=== PATIENT | male | born 1950 | race Caucasian/White ===

== ENCOUNTER 2023-08-25 10:47 | Outpatient (OUT) | payer SELFPAY | END 2023-08-25 10:48 | disposition home or self-care (01) | PROVIDERS: Visit Provider Ophthalmology | DX: Z01.818 Encounter for other preprocedural examination (principal); H25.811 Combined forms of age-related cataract, right eye ==

== ENCOUNTER 2023-08-26 06:34 | Day surgery (SDC) | payer OTHER, SELFPAY ==
--- NOTE | 2023-08-25 | HP_ITS ---
Date: 08/25/2022 HISTORY: The patient is a 73-year-old white male with complaints of declining vision out of his right eye. He states that over the last four months, in a rapid, constant fashion, he has noticed a steady decline in his vision. Distant vision has been most affected with TV watching and driving challenged. Road signs at a distance are difficult to see. He also states having difficulty at night time while driving due to oncoming headlights creating glare and halos. PAST OCULAR HISTORY: Denies. PAST MEDICAL HISTORY: 1. Hypercholesterolemia. 2. Hypertension. SOCIAL HISTORY: Denies tobacco or recreational drug abuse. Drinks alcohol occasionally. SYSTEMIC MEDICATIONS: Include doxycycline, losartan, rosuvastatin, amlodipine, colecalciferol. ALLERGIES TO MEDICATIONS: Denies. REVIEW OF SYSTEMS: No pertinent positives. PHYSICAL EXAM: GENERAL: In general, he is awake, alert and oriented x3, well developed, well nourished, in no acute distress. HEART: Regular rate and rhythm. LUNGS: Clear bilaterally. ABDOMEN: Soft, non-tender, non-distended. EXTREMITIES: No pitting edema. OPHTHALMIC EXAM: Revealed a visual acuity of 20/300 in the right eye and 20/70 -1 in the left eye, with the right eye glaring 20/400 and the left eye glaring to 20/200. Pupils motility, muscle balance, confrontational visual olivarez within normal limits bilaterally. Slit lamp exam revealed blepharitis with a severe decrease in tear film bilaterally. Conjunctiva, cornea, anterior chamber and iris were within normal limits bilaterally. Lens status demonstrated 3+ nuclear sclerosis with 1+ PSC cataract bilaterally. FUNDUS EXAM: Revealed a good view with good dilation bilaterally. Optic discs, macula, vessels, periphery and vitreous were within normal limits bilaterally. ASSESSMENT AND PLAN: Visually significant cataract, right eye. After risks, benefits, alternatives, as well as expectations were delivered to the patient, he elected to go forward with cataract removal. He understands the risks include but not limited to infection, bleeding, loss of vision, loss of the eye itself. Secondly, he understands postoperatively he is likely to require spectacle correction for his best visual acuity. Finally, a complete ophthalmic exam was performed, there is not determined to be any other source of visual decline other than that of the cataract. After understanding all risks as well as expectations, he elected to go forward with the procedure listed above and will be doing so in the near future. MTDD
--- NOTE | 2023-08-25 10:41 | PC.NURSE ---
Call placed to patient and there was no answer. A detail message was left for patient to have no caffeine in the morning, may have a light breakfast, may take morning meds, must have a oil transport driver for after the procedure, must bring folder and eye drops, bring current med list, and to call the provided number after 4 pm today for arrival time.
--- NOTE | 2023-08-26 | OP_ITS ---
OPERATION DATE: 08/26/2023 SURGEON: Brooks Tinoco M.D. PREOPERATIVE DIAGNOSIS: Nuclear sclerotic cataract right eye. POSTOPERATIVE DIAGNOSIS: Nuclear sclerotic cataract right eye. PROCEDURE: Cataract extraction with intraocular lens placement for the right eye. ANESTHESIA: Topical. ESTIMATED BLOOD LOSS: Zero. COMPLICATIONS: None. 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 This was just noted and not seen before. The patient was brought to the Operating Room in supine position. After proper identification, the right eye was prepped and draped in a sterile ophthalmic fashion. A paracentesis created at the 11 o'clock position. Approximately 1 mL of unpreserved Xylocaine was injected into the anterior chamber followed by Amvisc Plus. Using a 2.6 mm Keratome blade, a clear corneal incision was created at the 9 o'clock limbus. A cystotome was then used to begin a curvilinear capsulorrhexis that was continued for 360 degrees with the Utrata forceps. BSS on a 26 gauge cannula was injected beneath the anterior capsule to hydrodissect as well as hydrodelineate the lens. After ensuring mobility, phacoemulsification was performed in a [id number]-type fashion. After all nuclear material had been removed from the eye, IA was introduced and all residual cortical material was cleaned up. Additional Amvisc Plus was injected into the posterior bag and a lens model MX60, 16.5 diopters was injected and dialed into position. After ensuring centration, IA was reintroduced into the anterior chamber and all residual Amvisc Plus was removed from the eye. BSS on a 30 gauge cannula was injected into the stroma of the clear corneal incision as well as the paracentesis to hydrate the wounds. Additional BSS was injected into the anterior chamber to pressurize the eye at approximately 20 to 22 mmHg by finger tension. 0.1 mL of antibiotic was injected into the anterior chamber and Weck-Karina sponges were used to check the wounds to be watertight. One drop of apraclonidine and one drop of prednisolone acetate were placed into the eye and a shield was placed over top. The patient was sent to the postoperative area in satisfactory condition to follow up the following day for postoperative care. AMANDA
--- OUTSIDE RECORDS SUMMARY | 2023-08-26 06:37 | XMS_ITS | CCD ---
Author Name Unknown Address [address] [place] [address] Organization [facility] Care Team Providers Care Director Nicu Name Role Phone Anna Marie Liu Primary Care Physician Elpidio Mullins Unavailable Jr Ron Primary Care Physician Jr Akbar Attending Unavailable NEAL Liu Referring Jr Cuello Referring Unavailable Jr Akbra Admitting Unavailable Jr Akbar Attending Unavailable Jr CAMPOS Attending Unavailable Jr CAMPOS Referring Unavailable Jr CAMPOS Admitting Unavailable Jr CAMPOS Attending Unavailable Jr CAMPOS Referring Unavailable Jr CAMPOS Admitting Unavailable Андрей Sheehan Consulting Андрей Gastelum Consulting Андрей Gastelum Consulting Unavaila Jr Russell Admitting Unavailable Jr CAMPOS Attending Unavailable Jr CAMPOS Attending Unavailable Jr CAMPOS Admitting Unavailable Jr CAMPOS Attending Unavailable Jr CAMPOS Attending Unavailable Jr CAMPOS Attending Unavailable Jr CAMPOS Attending Unavailable NEAL Liu Attending UnavailJr Couch Attending Unavailable NEAL Liu Attending UnavailSIMRAN Taylor Attending Unavailable CANDELARIA EMERY Referring Unavailable Medications Current Medications Medication Drug Class(es) Dates Sig (Normalized) Sig (Original) albuterol HFA 90 mcg/inh MDI (2 sources) Start: 07-14-2021 take 180 ug by inhalation four times daily albuterol HFA 90 mcg/inh MDI 180 mcg, 2 puff(s), Inhalation, QID, Refill(s) 0, May go home with current prescription. Start Date: 07/14/21 Status: Ordered amLODIPine 5 mg oral tablet (10 sources) Dihydropyridine Calcium Channel Adam Start: 01-13-2023 take 1 tablet by mouth once daily amLODIPine 5 mg Tab 5 mg = 1 tab(s), Oral, Daily, # 90 tab(s), Refills(s) 3, Pharmacy: [facility]/pharmacy #[id number], 180, cm, 01/13/23 8:45:00 EDT, Height/Length Dosing, 97.1, kg, 01/13/23 8:45:00 EDT, Weight Dosing Start Date: 01/13/23 Status: Ordered Start: 06-27-2021 [facility] daily amLODIPine 10 mg Tab 10 mg = 1 tab(s), Oral, Daily, Refills(s) 0 Start Date: 06/27/21 Status: Ordered apixaban 5 mg oral tablet (5 sources) Factor Xa Inhibitor Start: 08-11-2021 take 1 tablet by mouth twice daily Eliquis 5 mg oral tablet 5 mg = 1 tab(s), Oral, BID, # 60 tab(s), Refills(s) 0 Start Date: 08/11/21 Status: Ordered doxycycline hyclate 100 mg oral capsule (9 sources) Tetracycline-clas s Drug Start: 12-21-2022 take 1 capsule by mouth once daily doxycycline hyclate 100 mg Cap 100 mg = 1 cap(s), Oral, Daily, with fluids, # 30 cap(s), Refills(s) 5, Pharmacy: [facility]/pharmacy #[id number], 180, cm, 08/10/22 10:10:00 EST, Height/Length Dosing, 99, kg, 08/10/22 10:10:00 EST, Weight Dosing Start Date: 12/21/22 Status: Ordered Start: 04-15-2022 take 1 capsule by mo [facility] once daily doxycycline hyclate 100 mg Cap 100 mg = 1 cap(s), Oral, Daily, with fluids, # 30 cap(s), Refills(s) 5, Pharmacy: [facility]/pharmacy #[id number], 180, cm, 01/01/22 9:11:00 EDT, Height/Length Dosing, 97.4, kg, 01/01/22 9:11:00 EDT, Weight Dosing Start Date: 04/15/22 Status: Ordered Start: 01-01-2022 End: 03-02-2022 take 1 capsule by mouth once daily doxycycline hyclate 100 mg Cap 100 mg = 1 cap(s), Oral, Daily, with fluids, X 30 day(s), # 30 cap(s), Refills(s) 1, [id number], cm, 01/01/22 9:11:00 EDT, Height/Length Dosing, 97.4, kg, 01/01/22 9:11:00 EDT, Weight Dosing Start Date: 01/01/22 Stop Date: 03/02/22 Status: Ordered fexofenadine hydrochloride 180 mg oral tablet (2 sources) Histamine-1 Receptor Antagonist Start: 04-20-2023 take 1 tablet by mouth once daily as needed fexofenadine 180 mg Tab 180 mg = 1 tab(s), Oral, Daily, PRN Allergy symptoms, # 30 tab(s), Refills(s) 5, [id number], cm, 04/20/23 8:55:00 EDT, Height/Length Dosing, 97.7, kg, 04/20/23 8:55:00 EDT, Weight Dosing Start Date: 04/20/23 Status: Ordered glucosamine sulfate 500 mg oral capsule (11 sources) Start: 06-07-2015 take 2 capsules by mouth once daily glucosamine 500 mg Cap 1,000 mg, Oral, Daily, # 30 cap(s), Refills(s) 0, Prophylaxis Start Date: 06/07/15 Status: Ordered 12 hr guaiFENesin 600 mg extended release oral tablet (2 sources) Start: 08-23-2021 take 2 tablets by mouth every twelve hours Mucinex 600 mg Tab-ER 1,200 mg = 2 tab(s), Oral, q12hr, # 20 tab(s), Refills(s) 0, Pharmacy: [facility], 180, cm, 08/21/21 23:20:00 EST, Height/Length Dosing, 93.8, kg, 08/21/21 23:20:00 EST, Weight Dosing Start Date: 08/23/21 Status: Ordered hydrocortisone acetate 25 mg rectal suppository (5 sources) Corticosteroid Start: 03-23-2023 take 25 mg rectal route twice daily as needed Anusol-HC 25 mg rectal suppository 25 mg = 1 supp, Rectal, BID, PRN hemorrhoids, # 12 supp, Refills(s) 1, Pharmacy: [facility]/pharmacy #[id number], 180, cm, 03/17/23 11:50:00 EDT, Height/Length Dosing, 98.5, kg, 03/17/23 11:50:00 EDT, Weight Dosing Start Date: 03/23/23 Status: Ordered Start: 01-13-2023 take 25 mg rectal ro gary twice daily as needed Anusol-HC 25 mg rectal suppository 25 mg = 1 supp, Rectal, BID, PRN hemorrhoids, # 12 supp, Refills(s) 1, Pharmacy: [facility]/pharmacy #[id number], 180, cm, 01/13/23 8:45:00 EDT, Height/Length Dosing, 97.1, kg, 01/13/23 8:45:00 EDT, Weight Dosing Start Date: 01/13/23 Status: Ordered losartan potassium 100 mg oral tablet (4 sources) Angiotensin 2 Receptor Adam Start: 03-17-2023 take 1 tablet by mouth once daily losartan 100 mg Tab 100 mg = 1 tab(s), Oral, Daily, # 30 tab(s), Refills(s) 6, Pharmacy: [facility]/pharmacy #[id number], 180, cm, 03/17/23 11:50:00 EDT, Height/Length Dosing, 98.5, kg, 03/17/23 11:50:00 EDT, Weight Dosing Start Date: 03/17/23 Status: Ordered metroNIDAZOLE 0.0075 mg/mg topical gel (3 sources) Nitroimidazole Antimicrobial Start: 06-24-2022 metronidazole topical 0.75% gel 1 emily, Topical, BID, 45 gram, Refill(s) 1, apply a thin film to affected area after washing, morning and night, [facility]/pharmacy #[id number], 180, cm, 06/24/22 9:05:00 EDT, Height/Length Dosing, 98.3, kg, 06/24/22 9:05:00 EDT, Weight Dosing Start Date: 06/24/22 Status: Ordered Multi Vitamin+ (2 sources) Start: 03-28-2019 Multi Vitamin+ Refill(s) 0 Start Date: 03/28/19 Status: Ordered polyethylene glycol 3350 465292 mg / potassium chloride 1480 mg / sodium bicarbonate 5720 mg / sodium chloride 19359 mg powder for oral solution (1 source) Osmotic Laxative Start: 07-20-2022 take 1 dose by mouth once NuLYTELY [place] oral powder for reconstitution See Instructions, 1 EA, Refill(s) 0, Per physcisians instructions prior to colonoscopy, [facility]/pharmacy #[id number], 180, cm, 07/20/22 13:04:00 EST, Height/Length Dosing, 99, kg, 07/20/22 13:04:00 EST, Weight Dosing Start Date: 07/20/22 Status: Ordered Preparation H Cooling Gel 0.25% rectal (4 sources) Start: 01-01-2022 Preparation H Cooling Gel 0.25% rectal 1 emily, Topical, BID for itching, 54 gram, Refill(s) 0, [facility]/pharmacy #[id number], 180, cm, 01/01/22 9:11:00 EDT, Height/Length Dosing, 97.4, kg, 01/01/22 9:11:00 EDT, Weight Dosing Start Date: 01/01/22 Status: Ordered rosuvastatin calcium 10 mg oral tablet (5 sources) HMG-CoA Reductase Inhibitor Start: 01-13-2023 take 1 tablet by mouth once daily rosuvastatin 10 mg Tab 10 mg = 1 tab(s), Oral, Daily, # 90 tab(s), Refills(s) 3, Pharmacy: [facility]/pharmacy #[id number], 180, cm, 01/13/23 8:45:00 EDT, Height/Length Dosing, 97.1, kg, 01/13/23 8:45:00 EDT, Weight Dosing Start Date: 01/13/23 Status: Ordered simvastatin 40 mg oral tablet (6 sources) HMG-CoA Reductase Inhibitor Start: 11-27-2021 take 1 tablet by mouth once daily at bedtime simvastatin 40 mg Tab 40 mg = 1 tab(s), Oral, Once a day (at bedtime), # 90 tab(s), Refills(s) 3, Pharmacy: [facility]/pharmacy #[id number], 180, cm, 11/03/21 13:55:00 EDT, Height/Length Dosing, 99.1, kg, 11/03/21 13:55:00 EDT, Weight Dosing Start Date: 11/27/21 Status: Ordered Vitamin D 1000 intl units (25 mcg) Tab (5 sources) Start: 01-13-2023 take 1 tablet by mouth once daily Vitamin D 1000 intl units (25 mcg) Tab 25 mcg = 1 tab(s), Oral, Daily, # 100 tab(s), Refills(s) 3, Pharmacy: [facility]/pharmacy #[id number], 180, cm, 01/13/23 8:45:00 EDT, Height/Length Dosing, 97.1, kg, 01/13/23 8:45:00 EDT, Weight Dosing Start Date: 01/13/23 Status: Ordered Completed/Discontinued Medications Medication Drug Class(es) Dates Sig (Normalized) Sig (Original) Cholecalciferol (3 sources) Vitamin D Start: 10-02-2021 End: 01-22-2022 cholecalciferol 50,000 intl units oral capsule 50,000 International_Unit = 1 cap(s), Oral, q7day, X 16 week(s), # 16 cap(s), Refills(s) 0, Pharmacy: [facility], 178, cm, 10/02/21 11:35:00 EST, Height/Length Dosing, 96.8, kg, 10/02/21 11:35:00 EST, Weight Dosing Start Date: 10/02/21 Stop Date: 01/22/22 Status: Ordered Problems Active Problems Problem Classification Problem Date Documented Da te Episodic/Chronic Cardiac dysrhythmias (11 sources) Tachycardia 07-25-2021 Episodic Chronic obstructive pulmonary disease and bronchiectasis (5 sources) Chronic obstructive lung disease; Translations: [Chronic obstructive pulmonary disease, unspecified] Onset: 03-17-2023 Chronic Diabetes mellitus without complication (6 sources) Hyperglycemia; Translations: [Impaired fasting glycemia] Onset: 04-20-2023 01-04-2023 Episodic Disorders of lipid metabolism (15 sources) Hyperlipidemia; Translations: [Hyperlipidemia, unspecified] Onset: 01-01-2022 06-30-2021 Chronic Essential hypertension (15 sources) Hypertensive disorder; Translations: [Essential hypertension] Onset: 01-01-2022 06-30-2021 Chronic Fluid and electrolyte disorders (11 sources) Hyponatremia 10-02-2021 Episodic Heart valve disorders (1 source) Aortic incompetence, non-rheumatic ; Translations: [Nonrheumatic aortic (valve) insufficiency] Onset: 03-17-2023 Chronic Hemorrhoids (11 sources) Hemorrhoids; Translations: [Unspecified hemorrhoids] Onset: 01-01-2022 Episodic Nutritional deficiencies (14 sources) Vitamin D deficiency; Translations: [Vitamin D deficiency, unspecified] Onset: 01-01-2022 07-27-2021 Chronic Other lower respiratory disease (6 sources) Dyspnea; Translations: [Dyspnea, unspecified] Onset: 03-17-2023 01-13-2023 Episodic Other nutritional; endocrine; and metabolic disorders (7 sources) Obesity; Translations: [Obesity, unspecified] Onset: 01-01-2022 Chronic Other nutritional; endocrine; and metabolic disorders (5 sources) Obese class I; Translations: [Body mass index (BMI) 30.0-30.9, adult] Onset: 01-01-2022 Chronic Other nutritional; endocrine; and metabolic disorders (8 sources) Body mass index 30+ - obesity 06-24-2022 Chronic Other screening for suspected conditions (not mental disorders or infectious disease) (3 sources) Screening for malignant neoplasm of colon done; Translations: [Encounter for screening for malignant neoplasm of colon] Onset: 06-24-2022 Episodic Other upper respiratory disease (1 source) Seasonal allergic rhinitis; Translations: [Other seasonal allergic rhinitis] Onset: 01-01-2022 Chronic Other upper respiratory disease (9 sources) Seasonal allergy 01-01-2022 Chronic Other upper respiratory disease (3 sources) Allergic rhinitis; Translations: [Allergic rhinitis, unspecified] Onset: 04-20-2023 Chronic Phlebitis; thrombophlebitis and thromboembolism (8 sources) Acute deep vein thrombosis of lower limb; Translations: [Deep venous thrombosis] Onset: 01-01-2022 07-25-2021 Episodic Pneumonia (except that caused by tuberculosis or sexually transmitted disease) (11 sources) Pneumonia 08-25-2021 Episodic Residual codes; unclassified (3 sources) Patient encounter status; Translations: [Other specified health status] Onset: 01-01-2022 Episodic Respiratory failure; insufficiency; arrest (adult) (11 sources) Dependence on supplemental oxygen 10-02-2021 Chronic Respiratory failure; insufficiency; arrest (adult) (11 sources) Acute respiratory failure 07-25-2021 Episodic Respiratory failure; insufficiency; arrest (adult) (4 sources) Respiratory failure; insufficiency; arrest (adult) 03-17-2023 Spondylosis; intervertebral disc disorders; other back problems (20 sources) Displacement of intervertebral disc without myelopathy; Translations: [Lumbosacral radiculitis] 11-03-2013 Episodic Unclassified (3 sources) Clinical finding absent 07-25-2021 Unclassified (12 sources) History of SARS-CoV-2; Translations: [Personal history of COVID-19] Onset: 03-17-2023 07-25-2021 Unclassified (6 sources) Non-smoker 07-25-2021 Unclassified (14 sources) Patient encounter status 10-02-2021 Past or Other Problems Problem Classification Problem Date Documented Da te Episodic/Chronic Pneumonia (except that caused by tuberculosis or sexually transmitted disease) (12 sources) Pneumonia (except that caused by tuberculosis or sexually transmitted disease); Translations: [Pneumonia due to coronavirus disease 2018] Onset: 12-25-2021 07-25-2021 Results Test Name Value Interpretation Reference Range Facility Ambulatory Visit Summaryon 0 04-20-2023 Ambulatory Visit Summary TERRY OLGUIN :1950 Visit Date:04/20/2023 Ambulatory Visit Instructions Your Diagnosis Hypertension Adult BMI 30.0-30.9 kg/sq m Other obesity Allergic rhinitis Hyperlipidemia Fasting hyperglycemia Vitamin D deficiency Screening for prostate cancer Your Care Team Attending Physician - Jr CAMPOS MD Primary Care Physician - Jr CAMPOS MD This Is Your Medications List fexofenadine (fexofenadine 180 mg Tab) Contact prescribing physician if questions or concerns amlodipine (amLODIPine 5 mg Tab) cholecalciferol (Vitamin D 1000 intl units (25 mcg) Tab) doxycycline (doxycycline hyclate 100 mg Cap) glucosamine (glucosamine 500 mg Cap) hydrocortisone topical (Anusol-HC 25 mg rectal suppository) losartan (losartan 100 mg Tab) rosuvastatin (rosuvastatin 10 mg Tab) Procedures Performed excision lipoma left forearm-local (06/07/2015), Colonoscopy (12/11/2011), Excision of lesion of joint of shoulder (09/2008), Excision of hand lesion (07/2004), Hernia repair. Discharge Vitals Temperature (Oral) 36.6 ?C Heart Rate (Peripheral) 83 Blood Pressure 134/72 Height 180 cm Height 71 in Weight 97.7 kg Weight 214.94 lb BMI 30.15 What to do next You Need to Schedule the Following Appointments Follow Up with MONI COOMBS, Jr Barros, CHRISSY When: In 6 months Where: [facility] [address], [place] [address]- You Need to Complete the Following CBC w/ Auto Diff, Blood, Routine collect, 04/20/23, Order for future visit, Lab Collect, Hypertension, Print Label By Order Location Comprehensive Metabolic Panel, Blood, Routine collect, 04/20/23, Order for future visit, Lab Collect, Hypertension, Print Label By Order Location HgbA1c, Blood, Routine collect, 04/20/23, Order for future visit, Lab Collect, Fasting hyperglycemia, Print Label By Order Location Lipid Panel, Blood, Routine collect, 04/20/23, Order for future visit, Lab Collect, Hyperlipidemia, Print Label By Order Location PSA Screen, Total, Blood, Routine collect, 04/20/23, Order for future visit, Lab Collect, Screening for prostate cancer, Print Label By Order Location Vitamin D 25 Hydroxy, Blood, Routine collect, 04/20/23, Order for future visit, Lab Collect, Vitamin D deficiency, Print Label By Order Location Medications What How Much When Why Instructions New fexofenadine (fexofenadine 180 mg Tab) 1 Tablets By Mouth Every day as needed for Allergy symptoms Allergic rhinitis Refills: 5 Pickup at [facility]/pharmacy #[id number] Unchanged amlodipine (amLODIPine 5 mg Tab) 1 Tablets By Mouth Every day Hypertension Contact prescribing physician if questions or concerns Unchanged cholecalciferol (Vitamin D 1000 intl units (25 mcg) Tab) 1 Tablets By Mouth Every day Vitamin D deficiency Contact prescribing physician if questions or concerns Unchanged doxycycline (doxycycline hyclate 100 mg Cap) 1 Capsules By Mouth Every day Rosacea with fluids Contact prescribing physician if questions or concerns Unchanged glucosamine (glucosamine 500 mg Cap) 1,000 Milligram By Mouth Every day Contact prescribing physician if questions or concerns Unchanged hydrocortisone topical (Anusol-HC 25 mg rectal suppository) 1 Suppositories By rectum 2 times a day as needed for hemorrhoids Hemorrhoids Contact prescribing physician if questions or concerns Unchanged losartan (losartan 100 mg Tab) 1 Tablets By Mouth Every day Hypertension Contact prescribing physician if questions or concerns Unchanged rosuvastatin (rosuvastatin 10 mg Tab) 1 Tablets By Mouth Every day Hyperlipidemia Contact prescribing physician if questions or concerns Pharmacy Information [facility] #[id number]: [address] [place], [place] [id number] [phone] Allergies No Known Allergies Problems Ongoing - Any problem that you are currently receiving treatment for. Allergic rhinitis COPD mixed type Dyspnea Fasting hyperglycemia Hemorrhoids History of COVID-19 Hyperlipidemia Hypertension Mild aortic insufficiency Screening for prostate cancer Seasonal allergies Vitamin D deficiency Historical - Any problem that you are no longer receiving treatment for. Acute respiratory failure with hypoxia Backache BMI 30.0-30.9,adult Displacement of intervertebral disc without myelopathy Hyponatremia Lumbosacral radiculitis Oxygen dependent Pneumonia Pneumonia due to COVID-19 virus Tachycardia Education Materials Hypertension, Adult Hypertension is another name for high blood pressure. High blood pressure forces your heart to work harder to pump blood. This can cause problems over time. There are two numbers in a blood pressure reading. There is a top number (systolic) over a bottom number (diastolic). It is best to have a blood pressure that is below 120/80. What are the causes? The cause of this condition is not known. Some other conditions can lead to high blood pressure. What increase (more content not included)... Normal [facility] Office/Clini c Noteon 04-20-2023 Family Medicine Office/Clinic Note Chief Complaint Patient here for 1 month f/u--had labs done. History of Present Illness Here for htn follow up He is feeling well. He is tolerating the losartan well. He denies CP. Breathing at his baseline. He has noted more allergies. Has hx of hay fever He gets runny nose, sneezing, itchy eyes. Review of Systems PHQ Score Initial Depression Screen Score: 0 Physical Exam Vitals & Measurements T: 36.6 ?C(Oral) HR: 83(Peripheral) BP: 134/72 SpO2: 94% HT: 71 in HT: 180 cm WT: 97.7 kg WT: 214.94 lb BMI: 30.15 General: Well developed, well nourished, in no acute distress Eyes: Pupils equal, round, and reactive to light. Conjunctivae and sclerae normal, and extraocular movements intact Lungs: Normal respiratory effort and clear to auscultation Cardio: Regular rate and rhythm, normal S1 and S2, no murmur, no rub Abdomen: Soft, non-distended, non-tender Musculoskeletal: No joint swelling or synovitis noted Extremity: No clubbing, cyanosis or edema. Neurologic: CN 2-12 intact, no focal motor or sensory defects noted. Skin: No rashes, ulcerations, or suspicious lesions Mental Status: Alert and oriented x3. Normal mood and affect Assessment/Plan 1. Hypertension (I10: Essential (primary) hypertension) stay on losartan and amlodipine Ordered: CBC w/ Auto Diff Comprehensive Metabolic Panel 2. Adult BMI 30.0-30.9 kg/sq m (Z68.30: Body mass index [BMI] 30.0-30.9, adult) The standard range for ages 18 and older is >=18.5 and < 25 kg/m2. Your BMI today was above this range, this falls in the overweight to obese category and there are medical benefits to weight loss. We can offer counselling, referral, and/or medical support in addressing this problem. Your BMI and weight management will be followed at subsequent visits. 3. Other obesity (E66.8: Other obesity) 4. Allergic rhinitis (J30.9: Allergic rhinitis, unspecified) will send in Rx for Amy Ordered: fexofenadine, 180 mg = 1 tab(s), Oral, Daily, PRN Allergy symptoms, # 30 tab(s), Refills(s) 5, Pharmacy: [facility]/pharmacy #[id number], 180, cm, 04/20/23 8:55:00 EDT, Height/Length Dosing, 97.7, kg, 04/20/23 8:55:00 EDT, Weight Dosing 5. Hyperlipidemia (E78.5: Hyperlipidemia, unspecified) Ordered: Lipid Panel 6. Fasting hyperglycemia (R73.01: Impaired fasting glucose) Ordered: HgbA1c 7. Vitamin D deficiency (E55.9: Vitamin D deficiency, unspecified) Ordered: Vitamin D 25 Hydroxy 8. Screening for prostate cancer (Z12.5: Encounter for screening for malignant neoplasm of prostate) Ordered: PSA Screen, Total Follow-up With When Contact Information MONI COOMBS, CHRISSY Coe In 6 months [facility] [address], [place] [address]- Additional Instructions: Patient Education Hypertension, Adult, [id number] Problem List/Past Medical History Ongoing Allergic rhinitis COPD mixed type Dyspnea Fasting hyperglycemia Hemorrhoids History of COVID-19 Hyperlipidemia Hypertension Mild aortic insufficiency Screening for prostate cancer Seasonal allergies Vitamin D deficiency Historical Acute respiratory failure with hypoxia Backache BMI 30.0-30.9,adult 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 Medications amLODIPine 5 mg Tab, 5 mg= 1 tab(s), Oral, Daily, 3 refills Anusol-HC 25 mg rectal suppository, 25 mg= 1 supp, Rectal, BID, PRN, 1 refills doxycycline hyclate 100 mg Cap, 100 mg= 1 cap(s), Oral, Daily, 5 refills fexofenadine 180 mg Tab, 180 mg= 1 tab(s), Oral, Daily, PRN, 5 refills glucosamine 500 mg Cap, 1000 mg, Oral, Daily losartan 100 mg Tab, 100 mg= 1 tab(s), Oral, Daily, 6 refills rosuvastatin 10 mg Tab, 10 mg= 1 tab(s), Oral, Daily, 3 refills Vitamin D 1000 intl units (25 mcg) Tab, 25 mcg= 1 tab(s), Oral, Daily, 3 refills Allergies No Known Allergies Social History Alcohol - Denies Alcohol Use, 01/24/2013 Substance Abuse - Denies Substance Abuse, 01/24/2013 Tobacco - Denies Tobacco Use, 01/24/2013 Never (less than 100 in lifetime) Tobacco Use:. Never Smokeless Tobacco Use:., 04/20/2023 Family History Family history is unknown Immunizations Vaccine Date Status Comments influenza virus vaccine, inactivated - Not Given Patient Refuses SARS-CoV-2 (COVID-19) mRNA BNT-162b2 vax 12/01/2021 Given influenza virus vaccine, inactivated - Not Given Patient Refuses SARS-CoV-2 (COVID-19) Ad26 vaccine - Not Given Postpone due to refusal influenza virus vaccine, inactivated 06/30/2017 Recorded pneumococcal 23-valent vaccine 06/25/2016 Recorded zoster vaccine live 06/16/2012 Recorded diphtheria/pertussis, acel/tetanus adult (more content not included)... Normal [facility] Comment on above: Result Comment: Alo govea Signed By: MONI COOMBS, Jr [email or web address]\Date and Time Signed: 04/20/23 09:13 EDT Patient Educationon 04-20-20 Patient Education Cardiovascular Hypertension, Adult Hypertension is another name for high blood pressure. High blood pressure forces your heart to work harder to pump blood. This can cause problems over time. There are two numbers in a blood pressure reading. There is a top number (systolic) over a bottom number (diastolic). It is best to have a blood pressure that is below 120/80. What are the causes? The cause of this condition is not known. Some other conditions can lead to high blood pressure. What increases the risk? Some lifestyle factors can make you more likely to develop high blood pressure: ? Smoking. ? Not getting enough exercise or physical activity. ? Being overweight. ? Having too much fat, sugar, calories, or salt (sodium) in your diet. ? Drinking too much alcohol. Other risk factors include: ? Having any of these conditions: ? Heart disease. ? Diabetes. ? High cholesterol. ? Kidney disease. ? Obstructive sleep apnea. ? Having a family history of high blood pressure and high cholesterol. ? Age. The risk increases with age. ? Stress. What are the signs or symptoms? High blood pressure may not cause symptoms. Very high blood pressure (hypertensive crisis) may cause: ? Headache. ? Fast or uneven heartbeats (palpitations). ? Shortness of breath. ? Nosebleed. ? Vomiting or feeling like you may vomit (nauseous). ? Changes in how you see. ? Very bad chest pain. ? Feeling dizzy. ? Seizures. How is this treated? ? This condition is treated by making healthy lifestyle changes, such as: ? Eating healthy foods. ? Exercising more. ? Drinking less alcohol. ? Your doctor may prescribe medicine if lifestyle changes do not help enough and if: ? Your top number is above 130. ? Your bottom number is above 80. ? Your personal target blood pressure may vary. Follow these instructions at home: Eating and drinking ? If told, follow the DASH eating plan. To follow this plan: ? Fill one half of your plate at each meal with fruits and vegetables. ? Fill one fourth of your plate at each meal with whole grains. Whole grains include whole-wheat pasta, brown rice, and whole-grain bread. ? Eat or drink low-fat dairy products, such as skim milk or low-fat yogurt. ? Fill one fourth of your plate at each meal with low-fat (lean) proteins. Low-fat proteins include fish, chicken without skin, eggs, beans, and tofu. ? Avoid fatty meat, cured and processed meat, or chicken with skin. ? Avoid pre-made or processed food. ? Limit the amount of salt in your diet to less than 1,500 mg each day. ? Do not drink alcohol if: ? Your doctor tells you not to drink. ? You are , may be , or are planning to become . ? If you drink alcohol: ? Limit how much you have to: ? 0?1 drink a day for women. ? 0?2 drinks a day for men. ? Know how much alcohol is in your drink. In the [place] one drink equals one 12 oz bottle of beer (355 mL), one 5 oz glass of wine (148 mL), or one 1? oz glass of hard liquor (44 mL). Lifestyle ? Work with your doctor to stay at a healthy weight or to lose weight. Ask your doctor what the best weight is for you. ? Get at least 30 minutes of exercise that causes your heart to beat faster (aerobic exercise) most days of the week. This may include walking, swimming, or biking. ? Get at least 30 minutes of exercise that strengthens your muscles (resistance exercise) at least 3 days a week. This may include lifting weights or doing Pilates. ? Do not smoke or use any products that contain nicotine or tobacco. If you need help quitting, ask your doctor. ? Check your blood pressure at home as told by your doctor. ? Keep all follow-up visits. Medicines ? Take qvup-sts-tmxrghi and prescription medicines only as told by your doctor. Follow directions carefully. ? Do not skip doses of blood pressure medicine. The medicine does not work as well if you skip doses. Skipping doses also puts you at risk for problems. ? Ask your doctor about side effects or reactions to medicines that you should watch for. Contact a doctor if: ? You think you are having a reaction to the medicine you are taking. ? You have headaches that keep coming back. ? You feel dizzy. ? You have swelling in your ankles. ? You have trouble with your vision. Get help right away if: ? You get a very bad headache. ? You start to feel mixed up (confused). ? You feel weak or numb. ? You feel faint. ? You have very bad pain in your: ? Chest. ? Belly (abdomen). ? You vomit more than once. ? You have trouble breathing. These symptoms may be an emergency. Get help right away. Call 911. ? Do not wait to see if the symptoms will go away. ? Do not drive yourself to the hospital. Summary ? Hypertension is another name for high blood pressure. ? High blood pressure forces your heart to work harder to pump blood. ? For m (more content not included)... Normal [facility] BMPon 04-14-2023 Anion gap [Moles/Vol] 10 mmol/L Normal 6-16 [facility] Comment on above: Performed By: #### 1 [id number], [id number] ####[facility] [address] [place] [address] Calcium [Mass/Vol] 9.0 mg/dL Normal 8.9-11.1 [facility] Comment on above: Performed By: #### 1 [id number], [id number] ####[facility] [address] [place] [address] Chloride [Moles/Vol] 106 mmol/L Normal 101-111 [facility] Comment on above: Performed By: #### 1 [id number], [id number] ####[facility] [address] [place] [address] CO2 [Moles/Vol] 27 mmol/L Normal 21-31 [facility] Comment on above: Performed By: #### 1 [id number], [id number] ####[facility] [address] [place] [address] Creatinine [Mass/Vol] 1.0 mg/dL Normal 0.5-1.3 [facility] Comment on above: Performed By: #### 1 [id number], [id number] ####[facility] [address] [place] [address] Glucose [Mass/Vol] 101 mg/dL Normal 55-199 [facility] Comment on above: Result Comment: If t his glucose result represents a fasting glucose, interpretation should refer to the following reference range: 55-99 mg/dL Performed By: #### 1 [id number], [id number] ####[facility] [address] [place] [address] Potassium [Moles/Vol] 3.9 mmol/L Normal 3.5-5.3 [facility] Comment on above: Performed By: #### 1 [id number], [id number] ####[facility] [address] [place] [address] Sodium [Moles/Vol] 139 mmol/L Normal 135-145 [facility] Comment on above: Performed By: #### 1 [id number], [id number] ####[facility] [address] [place] [address] Urea nitrogen [Mass/Vol] 24 mg/dL High 5-21 [facility] Comment on above: Performed By: #### 1 [id number], [id number] ####[facility] [address] [place] [address] Urea nitrogen/Creatinine [Mass ratio] 24 No Units High 10-20 [facility] Comment on above: Performed By: #### 1 [id number], [id number] ####[facility] [address] [place] [address] CHEMISTRYOrdered By: SYSTEM SYSTEM on 04-14-2023 Anion gap [Moles/Vol] 10 mmol/L Normal 6 - 16 mEq/L [facility] Remisol Calcium [Mass/Vol] 9.0 mg/dL Normal 8.9 - 11. 1 mg/dL [facility] Remisol Chloride [Moles/Vol] 106 mmol/L Normal 101 - 1 11 mmol/L [facility] Remisol CO2 [Moles/Vol] 27 mmol/L Normal 21 - 31 mmol/L FT Remisol Creatinine [Mass/Vol] 1.0 mg/dL Normal 0.5 - 1.3 mg/dL [facility] [place] Remisol GFR/1.73 sq M.predicted among non-blacks MDRD (S/P/Bld) [Vol rate/Area] 79 mL/min/1.73 m2 Normal >=59mL/min/1 .73 m2 [facility] [place] Chem S Glucose [Mass/Vol] 101 mg/dL Normal 55 - 199 mg/dL [facility] [place] Remisol Potassium [Moles/Vol] 3.9 mmol/L Normal 3.5 - 5.3 mmol/L [facility] [place] Remisol Sodium [Moles/Vol] 139 mmol/L Normal 135 - 145 mmol/L [facility] [place] Remisol Urea nitrogen [Mass/Vol] 24 mg/dL High 5 - 21 mg/dL [facility] [place] Remisol Urea nitrogen/Creatinine [Mass ratio] 24 mg/mg High 10 - 20 [facility] [place] Remisol Consent for Treatmenton 03-24 Consent for Treatment [id number] .[id number]:127 Normal [facility] eGFRon 04-14-2023 GFR/1.73 sq M.predicted among non-blacks MDRD (S/P/Bld) [Vol rate/Area] 79 mL/min/1.73 m2 Normal >=59 [facility] Comment on above: Order Comment: Order added by Discern Expert. 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 Kidney failure is indicated at less than 15 mL/min/1.73m2. Performed By: #### 1 [id number], [id number] ####[facility] [address] [place] [address] Family Medicine Office/Clini c Noteon 03-17-2023 Family Medicine Office/Clinic Note Chief Complaint Patient here for 2 month f/u to go over ECHO, PFT, CXR, EKG results History of Present Illness Here for med follow up. He is feeling ok He still gets SOB with activity but does not feel it is bad enough for an inhaler. No CP He has htn and home bp is about 140 systolic. Review of Systems PHQ Score Initial Depression Screen Score: 0 Physical Exam Vitals & Measurements T: 37.0 ?C(Oral) HR: 72(Peripheral) BP: 142/90 SpO2: 96% HT: 71 in HT: 180 cm WT: 98.5 kg WT: 216.7 lb BMI: 30.4 General: Well developed, well nourished, in no acute distress Eyes: Pupils equal, round, and reactive to light. Conjunctivae and sclerae normal, and extraocular movements intact Ears: not assessed Nose: not addressed Mouth: MMM. Oropharynx and posterior pharynx without lesions or exudates. Tongue WNL Neck: Neck supple. No lymphadenopathy. Trachea midline. No thyroid, masses, tenderness, or enlargement noted. No bruit. Lungs: Normal respiratory effort and clear to auscultation Cardio: Regular rate and rhythm, normal S1 and S2, no murmur, no rub Abdomen: Soft, non-distended, non-tender Musculoskeletal: No joint swelling or synovitis noted Extremity: No clubbing, cyanosis or edema. Neurologic: Grossly normal Skin: No rashes, ulcerations, or suspicious lesions Mental Status: Alert and oriented x3. Normal mood and affect Assessment/Plan 1. Hypertension (I10: Essential (primary) hypertension) mild elevation stay on amlodipine will add losartan 100 check bmp in 3 weeks. Ordered: losartan, 100 mg = 1 tab(s), Oral, Daily, # 30 tab(s), Refills(s) 6, Pharmacy: [facility]/pharmacy #[id number], 180, cm, 03/17/23 11:50:00 EDT, Height/Length Dosing, 98.5, kg, 03/17/23 11:50:00 EDT, Weight Dosing Basic Metabolic Panel 2. Hyperlipidemia (E78.5: Hyperlipidemia, unspecified) stay on rosuvastatin lab is ok 3. History of COVID-19 (Z86.16: Personal history of COVID-19) 4. Dyspnea (R06.00: Dyspnea, unspecified) xray, PFT, imaging reviewed with patient He has mild COPD He does not want an inhaler at this time 5. Vitamin D deficiency (E55.9: Vitamin D deficiency, unspecified) stay on D 3 6. BMI 30.0-30.9,adult (Z68.30: Body mass index [BMI] 30.0-30.9, adult) The standard range for ages 18 and older is >=18.5 and < 25 kg/m2. Your BMI today was above this range, this falls in the overweight to obese category and there are medical benefits to weight loss. We can offer counselling, referral, and/or medical support in addressing this problem. Your BMI and weight management will be followed at subsequent visits. 7. Other obesity (E66.8: Other obesity) 8. 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 Mild aortic insufficiency (I35.1: Nonrheumatic aortic (valve) insufficiency) will monitor Follow-up With When Contact Information MONI COOMBS, CHRISSY Coe In 1 month [facility] [address], [place] [address]- Additional Instructions: Patient Education Hypertension, Adult, Ehgn-wd-Qczd Problem List/Past Medical History Ongoing COPD mixed type Dyspnea Fasting hyperglycemia Hemorrhoids History of COVID-19 Hyperlipidemia Hypertension Mild aortic insufficiency Screening for prostate cancer Seasonal allergies Vitamin D deficiency Historical Acute respiratory failure with hypoxia Backache BMI 30.0-30.9,adult 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 Medications amLODIPine 5 mg Tab, 5 mg= 1 tab(s), Oral, Daily, 3 refills Anusol-HC 25 mg rectal suppository, 25 mg= 1 supp, Rectal, BID, PRN, 1 refills doxycycline hyclate 100 mg Cap, 100 mg= 1 cap(s), Oral, Daily, 5 refills glucosamine 500 mg Cap, 1000 mg, Oral, Daily losartan 100 mg Tab, 100 mg= 1 tab(s), Oral, Daily, 6 refills rosuvastatin 10 mg Tab, 10 mg= 1 tab(s), Oral, Daily, 3 refills Vitamin D 1000 intl units (25 mcg) Tab, 25 mcg= 1 tab(s), Oral, Daily, 3 refills Allergies No Known Allergies Social History Alcohol - Denies Alcohol Use, 01/24/2013 Substance Abuse - Denies Substance Abuse, 01/24/2013 Tobacco - Denies Tobacco Use, 01/24/2013 Never (less than 100 in lifetime) Tobacco Use:. Never Smokeless Tobacco Use:., 03/17/2023 Family History Family history is unknown Immunizations Vaccine Date Status Comments influenza virus vaccine, inactivated - Not Given Patient Refuses SARS-CoV-2 (COVID-19) mRNA BNT-162b2 vax 12/01/2021 Given influenza virus vaccine, inactivated - Not Given Patient Refuses SARS-CoV-2 (COVID-19) Ad26 vaccine - Not Given Postpone due to ref (more content not included)... Normal [facility] Comment on above: Result Comment: Elec tronically Signed By: MONI COOMBS, Jr Moreno.jose\Date and Time Signed: 03/17/23 12:15 EDT Patient Educationon 03-17-20 Patient Education Cardiovascular Hypertension, Adult Hypertension is another name for high blood pressure. High blood pressure forces your heart to work harder to pump blood. This can cause problems over time. There are two numbers in a blood pressure reading. There is a top number (systolic) over a bottom number (diastolic). It is best to have a blood pressure that is below 120/80. What are the causes? The cause of this condition is not known. Some other conditions can lead to high blood pressure. What increases the risk? Some lifestyle factors can make you more likely to develop high blood pressure: ? Smoking. ? Not getting enough exercise or physical activity. ? Being overweight. ? Having too much fat, sugar, calories, or salt (sodium) in your diet. ? Drinking too much alcohol. Other risk factors include: ? Having any of these conditions: ? Heart disease. ? Diabetes. ? High cholesterol. ? Kidney disease. ? Obstructive sleep apnea. ? Having a family history of high blood pressure and high cholesterol. ? Age. The risk increases with age. ? Stress. What are the signs or symptoms? High blood pressure may not cause symptoms. Very high blood pressure (hypertensive crisis) may cause: ? Headache. ? Fast or uneven heartbeats (palpitations). ? Shortness of breath. ? Nosebleed. ? Vomiting or feeling like you may vomit (nauseous). ? Changes in how you see. ? Very bad chest pain. ? Feeling dizzy. ? Seizures. How is this treated? ? This condition is treated by making healthy lifestyle changes, such as: ? Eating healthy foods. ? Exercising more. ? Drinking less alcohol. ? Your doctor may prescribe medicine if lifestyle changes do not help enough and if: ? Your top number is above 130. ? Your bottom number is above 80. ? Your personal target blood pressure may vary. Follow these instructions at home: Eating and drinking ? If told, follow the DASH eating plan. To follow this plan: ? Fill one half of your plate at each meal with fruits and vegetables. ? Fill one fourth of your plate at each meal with whole grains. Whole grains include whole-wheat pasta, brown rice, and whole-grain bread. ? Eat or drink low-fat dairy products, such as skim milk or low-fat yogurt. ? Fill one fourth of your plate at each meal with low-fat (lean) proteins. Low-fat proteins include fish, chicken without skin, eggs, beans, and tofu. ? Avoid fatty meat, cured and processed meat, or chicken with skin. ? Avoid pre-made or processed food. ? Limit the amount of salt in your diet to less than 1,500 mg each day. ? Do not drink alcohol if: ? Your doctor tells you not to drink. ? You are , may be , or are planning to become . ? If you drink alcohol: ? Limit how much you have to: ? 0?1 drink a day for women. ? 0?2 drinks a day for men. ? Know how much alcohol is in your drink. In the [place] one drink equals one 12 oz bottle of beer (355 mL), one 5 oz glass of wine (148 mL), or one 1? oz glass of hard liquor (44 mL). Lifestyle ? Work with your doctor to stay at a healthy weight or to lose weight. Ask your doctor what the best weight is for you. ? Get at least 30 minutes of exercise that causes your heart to beat faster (aerobic exercise) most days of the week. This may include walking, swimming, or biking. ? Get at least 30 minutes of exercise that strengthens your muscles (resistance exercise) at least 3 days a week. This may include lifting weights or doing Pilates. ? Do not smoke or use any products that contain nicotine or tobacco. If you need help quitting, ask your doctor. ? Check your blood pressure at home as told by your doctor. ? Keep all follow-up visits. Medicines ? Take itlh-hkk-rllkbjn and prescription medicines only as told by your doctor. Follow directions carefully. ? Do not skip doses of blood pressure medicine. The medicine does not work as well if you skip doses. Skipping doses also puts you at risk for problems. ? Ask your doctor about side effects or reactions to medicines that you should watch for. Contact a doctor if: ? You think you are having a reaction to the medicine you are taking. ? You have headaches that keep coming back. ? You feel dizzy. ? You have swelling in your ankles. ? You have trouble with your vision. Get help right away if: ? You get a very bad headache. ? You start to feel mixed up (confused). ? You feel weak or numb. ? You feel faint. ? You have very bad pain in your: ? Chest. ? Belly (abdomen). ? You vomit more than once. ? You have trouble breathing. These symptoms may be an emergency. Get help right away. Call 911. ? Do not wait to see if the symptoms will go away. ? Do not drive yourself to the hospital. Summary ? Hypertension is another name for high blood pressure. ? High blood pressure forces your heart to work harder to pump blood. ? For m (more content not included)... Normal [facility] Pulmonary Function Studieson 02-05-2023 Pulmonary Function Studies PULMONARY FUNCTION TEST: 02/03/2023 REQUESTING PHYSICIAN: Jr Campos M.D. REASON FOR TESTING: Dyspnea. Spirometry results are acceptable and reproducible. The FVC was 4.01 liters or 97% of predicted. The FEV1 was 2.73 liters or 88% of predicted with a ratio of 68%. There was no significant change with the administration of bronchodilators. Lung volumes showed a total lung capacity of 105% of predicted, residual volume of 131% of predicted with a ratio of 47%. Diffusion capacity of carbon monoxide was 84% of predicted and when adjusted to alveolar volume at 82% of predicted. IMPRESSION: Pulmonary function test results are suggestive of a mild degree of obstructive lung disease with normal lung volume and diffusion capacity. When compared to the patient's prior pulmonary function test performed on 10/06/2021, there has been a significant improvement in the FEV1, lung volumes and diffusion capacity since then. READ BY: Ana Cristina Dorsey M.D. lr Dictated: 02/03/2023 [id number] Transcribed: 02/03/2023 cc:Jr Campos M.D. [facility] Comment on above: Result Comment: Elec tronically Signed By: Willian COOMBS, Ana Cristina Lao\.br\Date and Time Signed: 02/05/23 09:38 EDT Consent for Treatmenton 01-21 Consent for Treatment [id number] .[id number]:127 [facility] Pulmonary Function Testson 0 02-03-2023 Pulmonary Function Tests [id number] .00CD:127 [facility] XR Chest 2 Viewson XR Chest 2 Views Exam Date/Time: 02/02/2023 13:56 EDT Reason for Exam: R06.00;Shortness of breath (SOB) Report IMPRESSION: There are chronic emphysematous changes in both lungs, similar to the prior study with apical bullae. CLINICAL HISTORY: Shortness of breath (SOB), R06.00 EXAMINATION: XR Chest 2 Views COMPARISON: Chest x-ray from 10/06/2021 FINDINGS: The cardiomediastinal silhouette is unremarkable. The lungs are free of infiltrates effusions or consolidations. There are bullous emphysematous changes in both lung apices similar to the prior study with faint increased interstitial markings bilaterally. There are no acute osseous changes. Ordering Provider: Jr CAMPOS FINAL REPORT Dictated: 02/03/2023 12:08 pm Mark Moody MD, V. Signed (Electronic Signature): 02/03/2023 12:08 pm Signed by: Mark Moody MD, V. Transcribed by: STERLING Technologist: JESUS ALBERTO Technical Comments Radiation Dose: Ka,r in mGy = na DAP = na [facility] Consent for Treatmenton 01-21 Consent for Treatment [id number] .[id number]:127 [facility] Family Medicine Office/Clini c Noteon 01-13-2023 Family Medicine Office/Clinic Note Chief Complaint Previous pt of Chandni Liu, here for a physical-- had labs done. History of Present Illness Here as a new patient to me. He has htn but is not currently on meds. He has been feeling well. He gets on the elliptical for 30 minutes with no problem but sometimes will get SOB going up and down steps. He had Covid pneumonia and wonders if he had more lung damage than he thought. Review of Systems PHQ Score Initial Depression Screen Score: 0 Physical Exam Vitals & Measurements T: 37.0 ?C(Oral) HR: 75(Peripheral) BP: 152/92 SpO2: 95% HT: 71 in HT: 180 cm WT: 97.1 kg WT: 213.62 lb BMI: 29.97 General: Well developed, well nourished, in no acute distress Eyes: Pupils equal, round, and reactive to light. Conjunctivae and sclerae normal, and extraocular movements intact Ears: TM clear, grossly normal hearing Nose: No deformity, discharge, inflammation, or lesions Mouth: MMM. Oropharynx and posterior pharynx without lesions or exudates. Tongue WNL Neck: Neck supple. No lymphadenopathy. Trachea midline. No thyroid, masses, tenderness, or enlargement noted. No bruit. Lungs: Normal respiratory effort and clear to auscultation Cardio: Regular rate and rhythm, normal S1 and S2, no murmur, no rub Abdomen: Soft, non-distended, non-tender Musculoskeletal: No joint swelling or synovitis noted Extremity: No clubbing, cyanosis or edema. Neurologic: Grossly normal Skin: No rashes, ulcerations, or suspicious lesions Mental Status: Alert and oriented x3. Normal mood and affect Assessment/Plan 1. Hypertension (I10: Essential (primary) hypertension) will start amlodipine Ordered: amlodipine, 5 mg = 1 tab(s), Oral, Daily, # 90 tab(s), Refills(s) 3, Pharmacy: [facility]/pharmacy #[id number], 180, cm, 01/13/23 8:45:00 EDT, Height/Length Dosing, 97.1, kg, 01/13/23 8:45:00 EDT, Weight Dosing 2. Hyperlipidemia (E78.5: Hyperlipidemia, unspecified) change to rosuvastatin due to drug interactions of simvastatin lab is ok Ordered: rosuvastatin, 10 mg = 1 tab(s), Oral, Daily, # 90 tab(s), Refills(s) 3, Pharmacy: [facility]/pharmacy #[id number], 180, cm, 01/13/23 8:45:00 EDT, Height/Length Dosing, 97.1, kg, 01/13/23 8:45:00 EDT, Weight Dosing 3. Fasting hyperglycemia (R73.01: Impaired fasting glucose) keep on diet 4. Vitamin D deficiency (E55.9: Vitamin D deficiency, unspecified) lab is low will start D3 1000 Ordered: cholecalciferol, 25 mcg = 1 tab(s), Oral, Daily, # 100 tab(s), Refills(s) 3, Pharmacy: [facility]/pharmacy #[id number], 180, cm, 01/13/23 8:45:00 EDT, Height/Length Dosing, 97.1, kg, 01/13/23 8:45:00 EDT, Weight Dosing 5. History of COVID-19 (Z86.16: Personal history of COVID-19) will repeat lung testing 6. BMI 29.0-29.9,adult (Z68.29: Body mass index [BMI] 29.0-29.9, adult) The standard range for ages 18 and older is >=18.5 and < 25 kg/m2. Your BMI today was above this range, this falls in the overweight to obese category and there are medical benefits to weight loss. We can offer counselling, referral, and/or medical support in addressing this problem. Your BMI and weight management will be followed at subsequent visits. 7. Dyspnea (R06.00: Dyspnea, unspecified) will check echo, xray and PFT Ordered: ECG 12 Lead Adult Echo Transthoracic Complete 8. Hemorrhoids (K64.9: Unspecified hemorrhoids) will try Anusol HC supp prn Ordered: hydrocortisone topical, 25 mg = 1 supp, Rectal, BID, PRN hemorrhoids, # 12 supp, Refills(s) 1, Pharmacy: [facility]/pharmacy #[id number], 180, cm, 01/13/23 8:45:00 EDT, Height/Length Dosing, 97.1, kg, 01/13/23 8:45:00 EDT, Weight Dosing Follow-up With When Contact Information CAMPOS , CHRISSY Coe In 2 months [facility] [address], [place] [address]- Additional Instructions: Patient Education Hypertension, Adult, Dbve-sa-Cmgi Problem List/Past Medical History Ongoing Dyspnea Fasting hyperglycemia Hemorrhoids History of COVID-19 Hyperlipidemia Hypertension Screening for prostate cancer Seasonal allergies Vitamin D deficiency Historical Acute respiratory failure with hypoxia Backache BMI 30.0-30.9,adult 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 Medications amLODIPine 5 mg Tab, 5 mg= 1 tab(s), Oral, Daily, 3 refills Anusol-HC 25 mg rectal suppository, 25 mg= 1 supp, Rectal, BID, PRN, 1 refills doxycycline hyclate 100 mg Cap, 100 mg= 1 cap(s), Oral, Daily, 5 refills glucosamine 500 mg Cap, 1000 mg, Oral, Daily rosuvastatin 10 mg Tab, 10 mg= 1 tab(s), Oral, Daily, 3 refills Vitamin D 1000 intl units (25 mcg) Tab, 25 mcg= 1 tab(s), Oral, Daily, 3 refills Allergies No Known Allergies S (more content not included)... Normal [facility] Comment on above: Result Comment: Elec tronically Signed By: MONI COOMBS, Jr Barros\.br\Date and Time Signed: 01/13/23 09:20 EDT Patient Educationon 01-14-20 23 Patient Education Cardiovascular Hypertension, Adult Hypertension is another name for high blood pressure. High blood pressure forces your heart to work harder to pump blood. This can cause problems over time. There are two numbers in a blood pressure reading. There is a top number (systolic) over a bottom number (diastolic). It is best to have a blood pressure that is below 120/80. What are the causes? The cause of this condition is not known. Some other conditions can lead to high blood pressure. What increases the risk? Some lifestyle factors can make you more likely to develop high blood pressure: ? Smoking. ? Not getting enough exercise or physical activity. ? Being overweight. ? Having too much fat, sugar, calories, or salt (sodium) in your diet. ? Drinking too much alcohol. Other risk factors include: ? Having any of these conditions: ? Heart disease. ? Diabetes. ? High cholesterol. ? Kidney disease. ? Obstructive sleep apnea. ? Having a family history of high blood pressure and high cholesterol. ? Age. The risk increases with age. ? Stress. What are the signs or symptoms? High blood pressure may not cause symptoms. Very high blood pressure (hypertensive crisis) may cause: ? Headache. ? Fast or uneven heartbeats (palpitations). ? Shortness of breath. ? Nosebleed. ? Vomiting or feeling like you may vomit (nauseous). ? Changes in how you see. ? Very bad chest pain. ? Feeling dizzy. ? Seizures. How is this treated? ? This condition is treated by making healthy lifestyle changes, such as: ? Eating healthy foods. ? Exercising more. ? Drinking less alcohol. ? Your doctor may prescribe medicine if lifestyle changes do not help enough and if: ? Your top number is above 130. ? Your bottom number is above 80. ? Your personal target blood pressure may vary. Follow these instructions at home: Eating and drinking ? If told, follow the DASH eating plan. To follow this plan: ? Fill one half of your plate at each meal with fruits and vegetables. ? Fill one fourth of your plate at each meal with whole grains. Whole grains include whole-wheat pasta, brown rice, and whole-grain bread. ? Eat or drink low-fat dairy products, such as skim milk or low-fat yogurt. ? Fill one fourth of your plate at each meal with low-fat (lean) proteins. Low-fat proteins include fish, chicken without skin, eggs, beans, and tofu. ? Avoid fatty meat, cured and processed meat, or chicken with skin. ? Avoid pre-made or processed food. ? Limit the amount of salt in your diet to less than 1,500 mg each day. ? Do not drink alcohol if: ? Your doctor tells you not to drink. ? You are , may be , or are planning to become . ? If you drink alcohol: ? Limit how much you have to: ? 0?1 drink a day for women. ? 0?2 drinks a day for men. ? Know how much alcohol is in your drink. In the [place] one drink equals one 12 oz bottle of beer (355 mL), one 5 oz glass of wine (148 mL), or one 1? oz glass of hard liquor (44 mL). Lifestyle ? Work with your doctor to stay at a healthy weight or to lose weight. Ask your doctor what the best weight is for you. ? Get at least 30 minutes of exercise that causes your heart to beat faster (aerobic exercise) most days of the week. This may include walking, swimming, or biking. ? Get at least 30 minutes of exercise that strengthens your muscles (resistance exercise) at least 3 days a week. This may include lifting weights or doing Pilates. ? Do not smoke or use any products that contain nicotine or tobacco. If you need help quitting, ask your doctor. ? Check your blood pressure at home as told by your doctor. ? Keep all follow-up visits. Medicines ? Take fvul-lfh-jjfvwfu and prescription medicines only as told by your doctor. Follow directions carefully. ? Do not skip doses of blood pressure medicine. The medicine does not work as well if you skip doses. Skipping doses also puts you at risk for problems. ? Ask your doctor about side effects or reactions to medicines that you should watch for. Contact a doctor if: ? You think you are having a reaction to the medicine you are taking. ? You have headaches that keep coming back. ? You feel dizzy. ? You have swelling in your ankles. ? You have trouble with your vision. Get help right away if: ? You get a very bad headache. ? You start to feel mixed up (confused). ? You feel weak or numb. ? You feel faint. ? You have very bad pain in your: ? Chest. ? Belly (abdomen). ? You vomit more than once. ? You have trouble breathing. These symptoms may be an emergency. Get help right away. Call 911. ? Do not wait to see if the symptoms will go away. ? Do not drive yourself to the hospital. Summary ? Hypertension is another name for high blood pressure. ? High blood pressure forces your heart to work harder to pump blood. ? For m (more content not included)... Normal [facility] Auto Diffon 01-08-2023 Basophils/100 WBC (Bld) 0.6 % Normal 0.0-2.0 [facility] Comment on above: Order Comment: Order Added by Discern Expert. Performed By: #### 2 677948, 5704469, 4753788, 639697511, 81466961, 6659933, 945777505 ####[facility] [address] [place] [address] Basophils/Leukocytes Auto (Bld) [Pure # fraction] 0.0 E9/L Normal 0.0-0.2 [facility] Comment on above: Order Comment: Order Added by Discern Expert. Performed By: #### 2 536019, 5388011, 9479976, 662262919, 42561290, 5776098, 630134289 ####[address] [address] Eosinophils/100 WBC (Bld) 5.0 % Normal 0.0-8.0 [facility] Comment on above: Order Comment: Order Added by Discern Expert. Performed By: #### 2 487443, 1753393, 3059224, 536951297, 03965766, 3824765, 331598253 ####[address] [place] [address] Eosinophils/Leukocyte s Auto (Bld) [Pure # fraction] 0.2 E9/L Normal 0.0-0.5 [facility] Comment on above: Order Comment: Order Added by Discern Expert. Performed By: #### 2 456188, 6288019, 7984388, 446356961, 68937657, 0824231, 025980147 ####[address] [address] Lymphocytes/100 WBC (Bld) 25.5 % Normal 14.0-50.0 [facility] Comment on above: Order Comment: Order Added by Discern Expert. Performed By: #### 2 057690, 6647192, 9547548, 316175841, 99069266, 5470394, 954001140 ####[address] [place] [address] Lymphocytes/Leukocyte s Auto (Bld) [Pure # fraction] 1.2 E9/L Normal 1.0-4.0 [facility] Comment on above: Order Comment: Order Added by Discern Expert. Performed By: #### 2 076606, 8581193, 0496664, 571418313, 49161215, 3743210, 265650464 ####[address] [address] Monocytes/100 WBC (Bld) 11.8 % Normal 4.0-14.0 [facility] Comment on above: Order Comment: Order Added by Discern Expert. Performed By: #### 2 691845, 4940232, 8461578, 837487802, 48977817, 0966782, 498975232 ####[address] [address] Monocytes/Leukocytes Auto (Bld) [Pure # fraction] 0.6 E9/L Normal 0.2-1.0 [facility] Comment on above: Order Comment: Order Added by Discern Expert. Performed By: #### 2 337093, 6720648, 2091034, 709715382, 70509868, 8402257, 564766345 ####[address] [address] Neutrophils/100 WBC (Bld) 57.1 % Normal 36.0-75.0 [facility] Comment on above: Order Comment: Order Added by Discern Expert. Performed By: #### 2 326688, 6428692, 0928459, 327632988, 49966742, 3760491, 594150788 ####[address] [address] Neutrophils/Leukocyte s Auto (Bld) [Pure # fraction] 2.7 E9/L Normal 2.0-7.5 [facility] Comment on above: Order Comment: Order Added by Discern Expert. Performed By: #### 2 403672, 4204621, 7430935, 524985220, 43036825, 0313366, 461120909 ####[facility] [address] [place] [address] CBC w/ Auto Diffon 3 Erythrocyte distribution width (RBC) [Ratio] 13.3 % Normal 10.9-14.2 [facility] Comment on above: Performed By: #### 2 657307, 0102222, 9776343, 559322315, 99175944, 3780119, 203153321 #### [facility] [address] [place] [address] Hematocrit (Bld) [Volume fraction] 48.5 % Normal 37.7-49.0 [facility] Comment on above: Performed By: #### 2 123733, 8141879, 0009851, 280329761, 71910552, 8635260, 097923691 #### [facility] [address] [place] [address] Hemoglobin (Bld) [Mass/Vol] 16.1 g/dL Normal 13.5-17.5 [facility] Comment on above: Performed By: #### 2 482489, 4366402, 4629002, 969567417, 79762263, 0554313, 174453312 #### [facility] [address] [place] [address] MCH (RBC) [Entitic mass] 31.1 pg Normal 27.0-34.0 [facility] Comment on above: Performed By: #### 2 180317, 4255870, 2241510, 774761669, 72796790, 1844502, 191201384 #### [facility] [address] [place] [address] MCHC (RBC) [Mass/Vol] 33.2 g/dL Normal 31.4-36.0 [facility] Comment on above: Performed By: #### 2 495398, 5290480, 3793999, 233363186, 18636645, 4491638, 834135060 #### [facility] [address] [place] [address] MCV (RBC) [Entitic vol] 93.8 fL Normal 80.0-100.0 [facility] Comment on above: Performed By: #### 2 855651, 6485939, 4813322, 036273475, 88130817, 9259573, 445402874 #### [facility] [address] [place] [address] Platelet mean volume (Bld) [Entitic vol] 6.5 fL Normal 6.4-10.8 [facility] Comment on above: Performed By: #### 2 154423, 0716395, 0718506, 650558376, 36786915, 2026199, 426631200 #### [facility] [address] [place] [address] Platelets (Bld) [#/Vol] 209.0 E9/L Normal 150.0-500.0 [facility] Comment on above: Performed By: #### 2 718404, 7792789, 1007263, 184382420, 65923759, 7915993, 195610335 #### [facility] [address] [place] [address] RBC (Bld) [#/Vol] 5.2 E12/L Normal 4.3-5.9 [facility] Comment on above: Performed By: #### 2 269048, 3941194, 1958540, 385713168, 35484229, 0848976, 329000625 #### [facility] [address] [place] [address] WBC corrected for nucl RBC Auto (Bld) [#/Vol] 4.8 E9/L Normal 4.0-11.0 [facility] Comment on above: Performed By: #### 2 352851, 5233019, 8277140, 067236913, 25884930, 6532985, 405191659 #### [facility] [address] [place], [place] [address] [place] [address] CMPon 01-08-2023 Albumin [Mass/Vol] 4.3 g/dL Normal 3.3-5.0 [facility] Comment on above: Performed By: #### 2 508365, 2882911, 8510564, 489434016, 09992108, 1158678, 704377588 ####[facility] [address] [place] [address] Albumin/Globulin (S) [Mass conc ratio] 1.6 Normal 1.1-2.2 [facility] Comment on above: Performed By: #### 2 957728, 5849399, 7465881, 659351625, 43461389, 5323563, 258825277 ####[facility] [address] [place] [address] ALP [Catalytic activity/Vol] 48 Int._Unit/L Normal 21-98 [facility] Comment on above: Performed By: #### 2 771295, 8601816, 1888586, 542662047, 17342037, 4854459, 371931880 ####[facility] [address] [place] [address] ALT No additional P-5'-P [Catalytic activity/Vol] 25 Int._Unit/L Normal 6-46 [facility] Comment on above: Performed By: #### 2 961190, 4272596, 2940128, 257314739, 52870552, 1075312, 437665641 ####[facility] [address] [place] [address] Anion gap [Moles/Vol] 12 mmol/L Normal 6-16 [facility] Comment on above: Performed By: #### 2 133026, 2550647, 1318369, 117401643, 83015599, 8776582, 101430585 ####[facility] [address] [place] [address] AST [Catalytic activity/Vol] 20 Int._Unit/L Normal 5-43 [facility] Comment on above: Performed By: #### 2 256114, 1741095, 4455412, 871317833, 45724305, 1084914, 727038964 ####[facility] [address] [place] [address] Bilirubin [Mass/Vol] 0.8 mg/dL Normal 0.0-1.1 [facility] Comment on above: Performed By: #### 2 688909, 4531888, 1035193, 125977957, 35075622, 7499210, 290658333 ####[facility] [address] [place] [address] Calcium [Mass/Vol] 9.1 mg/dL Normal 8.9-11.1 [facility] Comment on above: Performed By: #### 2 125518, 2302385, 9507170, 548509900, 59258343, 6936722, 865394956 ####[facility] [address] [place] [address] Chloride [Moles/Vol] 107 mmol/L Normal 101-111 [facility] Comment on above: Performed By: #### 2 781534, 9932268, 2423253, 354721290, 27031757, 6112295, 616024780 ####[facility] [address] [place] [address] CO2 [Moles/Vol] 24 mmol/L Normal 21-31 [facility] Comment on above: Performed By: #### 2 250599, 9782458, 7406443, 960738022, 92181540, 1919969, 075855376 ####[facility] [address] [place] [address] Creatinine [Mass/Vol] 1.0 mg/dL Normal 0.5-1.3 [facility] Comment on above: Performed By: #### 2 498167, 3255697, 1314486, 957099823, 49626911, 3349330, 834111098 ####[facility] [address] [place] [address] Globulin (S) [Mass/Vol] 2.7 g/dL Normal 1.4-4.0 [facility] Comment on above: Performed By: #### 2 926117, 8725222, 0071722, 171525127, 14085483, 1748071, 514178356 ####[facility] [address] [place] [address] Glucose [Mass/Vol] 121 mg/dL Normal 55-199 [facility] Comment on above: Result Comment: If t his glucose result represents a fasting glucose, interpretation should refer to the following reference range: 55-99 mg/dL Performed By: #### 2 059015, 0340220, 6238720, 169420747, 26326919, 3875972, 759924924 ####[facility] [address] [place] [address] Potassium [Moles/Vol] 4.1 mmol/L Normal 3.5-5.3 [facility] Comment on above: Performed By: #### 2 002035, 9370212, 9798129, 793118152, 92206130, 8611096, 878261593 ####[facility] [address] [place] [address] Protein [Mass/Vol] 7.0 g/dL Normal 6.0-7.8 [facility] Comment on above: Performed By: #### 2 467815, 2054936, 3255440, 680302297, 42089827, 0051898, 356782537 ####[facility] [address] [place] [address] Sodium [Moles/Vol] 139 mmol/L Normal 135-145 [facility] Comment on above: Performed By: #### 2 515527, 8362125, 0614240, 275703319, 92738094, 6880843, 183145983 ####[facility] [address] [place] [address] Urea nitrogen [Mass/Vol] 20 mg/dL Normal 5-21 [facility] Comment on above: Performed By: #### 2 037415, 9078746, 3361990, 610340904, 82133910, 4931638, 154738321 ####[facility] [address] [place] [address] Urea nitrogen/Creatinine [Mass ratio] 20 No Units Normal 10-20 [facility] Comment on above: Performed By: #### 2 302871, 6087064, 8487971, 463808080, 76138535, 0083328, 934089995 ####[facility] [address] [place] [address] Consent for Treatmenton 12-21 Consent for Treatment [id number]#1 .00CD:127 Normal [facility] AupE3dmy 01-08-2023 HbA1c (Bld) [Mass fraction] 6.0 % High <=5.9 [facility] Comment on above: Performed By: #### 2 810215, 7777244, 1056158, 329742223, 30933106, 7965171, 955863244 ####[facility] [address] [place] [address] Lipid Panelon 01-08-2023 Cholesterol [Mass/Vol] 193 mg/dL Normal 120-200 [facility] Comment on above: Performed By: #### 2 434989, 6217372, 0961208, 412834426, 00177408, 6319622, 096389362 ####[facility] [address] [place] [address] Cholesterol in HDL [Mass/Vol] 69 mg/dL Invalid Interpretation Code [facility] Comment on above: Result Comment: HDL > or equal to 60 mg/dL: Low cardiovascular risk HDL < 40 mg/dL : High cardiovascular risk Performed By: #### 2 985630, 8036453, 2275167, 242798555, 29632880, 5372324, 365036612 ####[facility] [address] [place] [address] Cholesterol in LDL [Mass/Vol] 106 mg/dL Normal <=129 [facility] Comment on above: Performed By: #### 2 946337, 3009974, 0686043, 028674313, 45925011, 8025154, 682219202 ####[facility] [address] [place] [address] Cholesterol in VLDL [Mass/Vol] 18 mg/dL Normal 7-40 [facility] Comment on above: Performed By: #### 2 546272, 7224134, 6407992, 911759549, 99177376, 4181236, 454816444 ####[facility] [address] [place] [address] Triglyceride [Mass/Vol] 89 mg/dL Normal <=149 [facility] Comment on above: Performed By: #### 2 668770, 8081997, 7965318, 596681574, 78873814, 9669224, 748188848 ####[facility] [address] [place] [address] Vitamin D 25 Hydroxyon 01-08 25-hydroxyvitamin D3 [Mass/Vol] 24.7 ng/mL Low 30.0-100.0 [facility] Comment on above: Result Comment: Vit chin D deficiency has been defined as a level of serum 25-OH vitamin D less than 20 ng/mL (1,2) by the [place] of [employer] and an Endocrine Society practice guideline. The Endocrine Society further defined vitamin D insufficiency as a level between 21 and 29 ng/mL (2). 1. IOM ([place] of [employer]). 2010. Dietary reference intakes for calcium and D. [place]: The National Academies Press. 2. aGlindo MF, Marly NC, Juaquin GARCIA, et al. Evaluation, treatment, and prevention of vitamin D deficiency: an Endocrine Society clinical practice guideline. JCEM. 2010; 96 (7):1911-30. Performed By: #### 2 389734, 4956780, 9094681, 066934429, 19159567, 0999367, 384160694 ####[facility] [address] [place] [address] eGFRon 01-08-2023 GFR/1.73 sq M.predicted among non-blacks MDRD (S/P/Bld) [Vol rate/Area] 80 mL/min/1.73 m2 Normal >=59 [facility] Comment on above: Order Comment: Order added by Discern Expert. 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 Kidney failure is indicated at less than 15 mL/min/1.73m2. Performed By: #### 2 719800, 1323518, 5027316, 489455000, 39298288, 7501097, 011351620 ####[facility] [address] [place] [address] Reminderson 09-02-2022 Reminders - From: Marlene Jang MA To: N - Clinical; Sent: 09/02/2022 08:52:41 EST Show up: 06/23/2032 08:52:00 EDT Subject: Colonoscopy recall- 10 years Due Date/Time: 08/10/2032 08:52:00 EST Reminder/Recall Last colonoscopy: 08/10/2022 Repeat: 10 years (patient may opt out due to age) Reason: Screening Normal [facility] IntraOperative Documentson 1 IntraOperative Documents [id number]# 1.00CD:127 Normal [facility] H&P Updateon 08-20-2022 H&P Update H&P Reviewed. [place] t seen and examined, appropriate for planned surgery Normal [facility] Coding Summary.on 08-14-2022 Coding Summary. CD:[id number] G h0bWw+PGhlYWQ+LU6JUEW yX61heQSnwR2MZ1qDOU7U ZZOBDRWHQK6NBC8ihPD6Z NkkS7RdtjYk OarfvHSxYK57GKm2EBN1x PayNNiueF4osRHlA8l4Jb TnVF09pC25DRadSMWsAgL 3LjZpbjsgbWFy M2urCgHitQDwMhm+PHRhY mxlIHdpZHRoPScxMDAlJy UkoYvtXO9kBe5nHQHyANS vbGxhcHNlOiBj p4fdSGIeENviIU0eqRjmE 9XaoFP4OBXbu9r9Gq50gQ I+HNCwEEG9dUwbDEnpp51 2ShBxs3voHRB5 pVBnAFedDWU4L96rn6O7I PSfJPRvRUT8hZO2nT1dqV zdmokoA6ZqkJAaWuT7NCO 8tICwcA8unYyf hbipgL0aMbp+F65YLM5HG NIAGN9MQuf0Q7AyEkizwB I+QH73QOTpAY12vTRvyMZ bx3nlyRx5PbMa MOYjBOZ5ePobPEbef5QzV LZvX41acBIqc1Q5ZMAurB gzlUImEbCalPB7lP6rGSv txzkxw4kfotyf Ofpmw1adfa99wA86F80sI GqhRIBeIAD3SYEpZDUygP sblf1hpU1mPt2+TSqvh9f sb8zpnUi1YrQp IDKcyeHvoKtvCGF7a0XmU f27L9QvgMpgj2SoBie1kz 03eCWpt4N6vOO3UPigOPH ubH1pWMgrViW3 YJQtUnLmlZ24nHUqRZzxM u3lcLkydRwrNY3eUHJggi raFXJorE8iRCRtcCLunSs aGX3zRXKmahxg y452SgHjNBS1QVGapGKvI 7PqgE4pLzJvILFiAYZvT7 NzvKClPAmpC199ZQxtTjE 0TBMvybEwH0Xv HZUrxLhwGbY0f2S0Nr1Eq 4EiptvsBEX9MLhfXFRzLa BjGqWgQwO3V2PhVon4MOO qsTwpXC7qG1Qi FINodoqaxysghEV1UQGzA RNfiP73eLSkRZwhDi6tr5 G2o103DJRfHUQtcP55Vz7 udDogMTBwdCBU sF5vquhjg7eaajtwKoEwK XCyDDf9NYc5ECMsxFtiBz OtAGX8XsF5TPG5yOBwhD1 gdWirwzvbsR4r Oyc+K44sfC0sNLM4GBM2m mhqDESpdnFnJX26YD42J8 RyPjwvdGFibGU+PGRpdiB jnGviGU9zFqRx e1dns2DzSXpuA2OzZZEnX NiyLho9NLEfJNU1dAQ1lH 8cGJBaBTleo3X3kBA6L5Z qdyUxib9re1kw MOTbHYyoP71vsJUpm8B6M RNzdJX6MVAzlSvfZcVdnP 93Oyc+OSYpxRmjr8IfLev ep0xbv8pehMh5 WrPoZWHljnZejJdqPTN3i 0KgHh99Q15bHMmyKCXkCD RsQSKzLDHguWndpq7kfG9 wIi8+PGNvbCB3 sAS0mT2zXUFdPxH1ZTubL 282VuNkjUViMokab2bcg3 qjlPp4ZoZwRHHbzpCdvXe cUOR8e3WbEq05 I87lRNtlJDRaIJRcERYjF PPlxThpdh4cyD2kDn6+PC 0bb8ebbx25sN53nVO+PHR iKLP1qEvrNCng CTFxxH4mPZnxEdK0BGRfN kZxhA99gWAiIVveCl2xuI qqsWeoPW7cLZNobubvu33 7IwGvg9vnNZUy lUFwVXydCLE8C05pr3R8N YGyUWYnSEZ2aMW7uC9ezA lnbjogbGVmdDsgdmVydGl qUDuaDQurX758 IHRvcDsnPlBhdGllbnQgT sHcFRv5X4OjCqr3HJXonS gnPC6aaTLuCLfnBx0ijSu rrPumLE7cSYNn xsots464LdYah1ilDNZqr FRwTKtyULQ1B40oq7F1RS LyRKDiAMG6cOL8qO5ruOp nbjogbGVmdDsg zlFoiBqgPMinFAxvB726U HRvcDsnPkJpcnRoIERhdG O8OR34VY04yAFna7K4lHY 0C9HfUYKsucqr gztxkPB1BQKtTKLcaX78J b9miWueHb0lPQPoWOY1AE SyhZOkD4RzlH6dMwOzZNN xZGJrD6ZhyDFw RWvpG929GXbuEcH3LFOnb cZsR0ZyOBOrpYuvKuV8i4 Z4Qo6AF0G5DZ72OS19aBG ee8C1nCZ5U4Ye WNUylcqrnhiykUR1XYOmT CGlqR43Uh6gyCkrUw1gZK HiHTZ1CBRnrVJzB4CepL8 yOiAjMDAwMDAw Y9JmfGTnRQnxB743DUrmZ iO8IJExmqMrK8FmVQXgfH buQfW1j8R9Zq6NKRm4VZ3 7NW00yYGqt4M4 zTD4P9FtNXVzytgkbjitq QZ6IIXjGOEsxN50So7hvC xwQf0oQBGoFHY0IOMskYY bU9YsrG5aOtRd YIYoHEKzE4AypLIiOFuqK 780KXbxApJ2XELhxrCrR2 PpFZWceRqmOcB6l6A8Lf1 DVMVmVP74FFW8 qAJ0KK07II62V0NvXpwjt GFibGU+PHRhYmxlIHdpZH RoPScxMDAlJyBzdHlsZT0 qEs1eAHIgONHs sDmjyABlJpMlm4dgYBKdM BtsQN7rjKulG4HpgJD0MR Rha3p5Fg47H01iN6RixVN +EIMxlMI9nWQ8 eB5mHsQeFtM8QMhaY841H wEwpIWuUglbc3eur3yolC l9FyJ9IFXrpqGtaOviIEX 1r6JwIs49V63q IHdpZHRoPSIxNSUiIHZhb Esnpb7krY6oUt3+PGNvbC B2yHM2iP8uFaAkQcW7KBy tJ131TvEafPSy Iivnq7inj6gzeBn5AaZvC DLcarJklXoaBWV0g2PcRi 24Q6QasVewh8XkLaa3zd6 8xUCrq5H8zXT0 K8OuVCLsgkspdCNfcNakV S2eSQQtqmogHIAuvW4fJG UuR8p1FnMwVuN7VPewH3G zfqC3WPGcvHCd CLofGGP9Z23bw5P2NOSrI AWeTTT3fYL8kC7szIeylj ogbGVmdDsgdmVydGljYWw iXIjqQ151JPIi tJwjQXNjkK1kRTWwmOKwn CehXV1dABIwcepqMkWXAj wQP5qbHHAPFVNOFE0rZTt vdGQ+PHRkIHN0 sPyqTTbkAHModT0jCIIeA 6r3DwRwNzT3MVffB2WrIK YnvwhxOb60xV4zOtTzDzG 0EBjbG6DiczF2 KYDiiVXgNWzmTJW9U58wm 9C1FYLvVDQpDHO1rUJ3dR 1hbGlnbjogbGVmdDsgdmV ydGljYWwtYWxp P764LABmpCgrHcC7ViMyN cF4AZW5R4XpYzx5BFMtvS yiDL8yiZWwYKhxKw8vvKd ubNnrJT9xSYPk pctbQDRioS1wXTGqgAWog HzcCQ2eBIFbhvgxq239El FiQCS2PAOahAXbY0DwaD4 yOiAjMDAwMDAw M0WbuZStIKycF222SOlyD uR2KLRdylVcM4TbXQDmbX cxHpY1p3O6Hc82JnJAWGP yczwvdGQ+PHRk PKO5tVflHJcfEIOjqD3xY HIxW0z2JkDiBzN6KQisR7 RyBPUdgvveIx55pG2mMgA yHxQ3OKawU5Iz dyL6XNLcxWEjDQwxNQG7M 85fs9I5QOGtLFKmILS4oL B5eR0olDlzajiazBIvpTf gdmVydGljYWwt QPmlB558YIYklMsfPw4bn UP0D7EtOvb7IWRdpOvrAH 4zzAWoPBoxLz7dzAkpwHd fSV8jYTMmothg JEFbvH8bMTBbmKQwiIlsV X4aXZGjanbkw491IfPbXX S9PJBngQAlD0BlzF4zIhB aCTHcQEAzH6Kx iLXvFRsjC030RUhtWyC4L LZygxZgI4ImGEQakHiwFz Q3t8H9Jb1FbSYsIGNcBF9 6FC50TL19G2Gi PjwvdGFibGU+PHRhYmxlI HdpZHRoPScxMDAlJyBzdH yhVJ2yMr3bICKuRUKobQl ajJNfQlCuf5bn CVKiXLxlLU4brMbbP2Oav JL5YEBcp9i5Zh49J44lO9 JvdXA+QONckRU9hQQ2zD2 hOkZwGsH3CTvt B903HdJuhHJwNdwar2yxp 1nhyKi0OePhSVCqcxFgsE znSEF7t6MpHi83P11oWXl pZHRoPSIyMCUi SPHepGlulx7iqW9lOs5+P QFffEI7jNC9iL6nOvQnOy S8ZTtwQ020CuEekEEtTri gT56gN6NziMW+ IRGoAvg7VSLvwIdtTF3re NIzCUsePm1oGXP4IeEiNe CjPJlrD9QzHAPfqyjvgub foMD2RCQtWNCc uL14Pd7hbXfyXu5bLWPuE UU2BZBhdRRvF6FstT9dJz ThMRGnOPSvW7HcdQNlSFi gJ579MUxqBvV8 TDXqueVbG6VpWDGwhSjsS uI4f1K8Zi6JgIwleRPlKX 2kUgSoYEq2C1OzDnp5OXT xcUedVA7fdFMz KMdkVf6xiVoehRibJJ9fT VMoubwdp876HzSxt8meKA YttTDxNUoeNPF7V58ka5G 3CGLrOUXiKKE2 tJV4iE5ptJsysuqpaOAlf DsgdmVydGljYWwtYWxpZ2 41YRSukSelDcTBOke7S1A oDwr7EPYpqFba YY7uoLPdKJfyEs0lwOdvc SisRV5wXOFewkzjb945Pt Spb9wzRWJnvCNfTKlwDFB 1P51yt9D3ANHo GVVgETV0lZJ7xW7fpGwpy jogbGVmdDsgdmVydGljYW cyETthW776EDOvzZhdYi6 JBxn1C6WsGwd7 BHQwkWlsDP9nhVMjPJbkM g2saUmydYahQV6mFLBwxz iat792SuLhs7wvAONddHU bHOuaABG7S93r h6O6QPBeGWSkNXO2aIO9b A5lpFusljphqARlsTjqvi IorQmaUYzlLPhpU427NOV vcDsnPlBheWVy OjwvdGQ+DE62ix38Z6GvM jdnYev4EXMbJHX2rAI4nZ 7oYAQmKDywi9Y0qYK7P2Q jmtGwtn3vl7zz YXBz (more content not included)... Normal [facility] Main OR Intraoperative Recor don 08-13-2022 Main OR Intraoperative Record IntraOp Document Type FT Summary Primary Physician: Jr Akbar MD Finalized Date/Time: 08/13/22 10:59:34 Pt. Name: TERRY OLGUIN Himanshu /Sex: 1950 Male Med Rec #: [id number] Physician: Jr Akbar MD Financial #: [id number] Pt. Type: O Room/Bed: / Admit/Disch: 08/10/22 10:03:50 - 08/10/22 23:59:59 Institution: Case Times FT Entry 1 Patient Times In Room 08/10/22 10:40:00 Out Room 08/10/22 10:59:00 Procedure Times Start 08/10/22 10:44:00 Stop 08/10/22 10:57:00 Anesthesia Times Start 08/10/22 10:40:00 Stop 08/10/22 10:59:00 Time at [facility] 08/10/22 10:49:00 Last Modified By: Becca RODRIGUES, Tonya Osei 08/10/22 10:59:20 General Comments: 08/13/22 Chart opened to review and send charges LRoth CSFA Case Attendance FT Entry 1 Entry 2 Entry 3 Case Attendee Nahomy Bauer RN, Kathryn Rivera Role Performed Anesthesiologist Dynamic Etching Processor - Primary Scrub - Primary Software Developer Manager Time In 08/10/22 10:40:00 08/10/22 10:40:00 08/10/22 10:40:00 Time Out 08/10/22 10:59:00 08/10/22 10:59:00 08/10/22 10:59:00 Procedure COLONOSCOPY(.) COLONOSCOPY(.) COLONOSCOPY(.) Comments Dr. Gonsalves supervising case Last Modified By: Becca RN, Tonya Hudson RN, Tonya Hudson RN, Tonya F 08/10/22 10:59:21 F 08/10/22 10:59:21 F 08/10/22 10:59:21 Entry 4 Case Attendee Jr Akbar MD Role Performed Surgeon - Primary Time In 08/10/22 10:40:00 Time Out 08/10/22 10:59:00 Procedure COLONOSCOPY(.) Comments Last Modified By: Tonya Hudson RN 08/10/22 10:59:21 Perioperative Protocols FT Pre-Care Text: Implements protective measures prior to operative or invasive procedure, confirms identity before the operative or invasive procedure, verifies operative procedure, surgical site, and laterality Entry 1 Procedure(s) COLONOSCOPY(.) Patient Identity Birthday, ID Band Verified (select at Check, Patient least 2): Participation Consents / H and P Anesthesia Consent, Operative Site N/A Verified HandP, Surgery/Procedure Marking Verified Consent Surgical Site No Laterality Verified n/a Verified Procedure Verified Yes Correct Patient Yes Position Verified Availability Equipment, Medication Prep Dry n/a Verified (If Applicable) PreOp Antibiotic No Time Out Nahomy Bauer, Given Participants Tonya Hudson RN, Sparks, Micala E, Mourany MD, John E. Time Out Complete 08/10/22 10:41:00 Outcomes Met? Yes Last Modified By: Tonya Hudson RN 08/10/22 10:43:09 Post-Care Text: The patient is free from signs and symptoms of injury caused by extraneous objects Allergy Information FT Pre-Care Text: Verifies allergies Entry 1 Allergies Reviewed? Yes Allergies Reviewed Self/Patient With Outcomes Met? Yes Last Modified By: Tonya Hudson RN 08/10/22 10:43:15 Post-Care Text: The patient received appropriate medication(s) safely administered during the perioperative period Surgical Procedures FT Entry 1 Procedure Description Procedure COLONOSCOPY Modifiers . Surgeon Description Colonoscopy with cecal polypectomy Primary Procedure Yes Primary Surgeon Jr Akbar MD Start 08/10/22 10:44:00 Stop 08/10/22 10:57:00 Anesthesia Type General Surgical Service General Wound Class 2 - Clean-Contaminated Last Modified By: Tonya Hudson RN 08/10/22 10:57:40 General Case Data FT Pre-Care Text: Classifies surgical wound, implements aseptic technique, initiates traffic control Entry 1 Case Information OR ENDO 1 FT Case Level Level 2 Wound Class 2 - Clean-Contaminated Specialty General ASA Class 2 Preop Diagnosis Screening Postop Same As Preop No Postop Diagnosis Cecal polyp, sigmoid Outcomes Met? Yes colon diverticulosis Last Modified By: Tonya Hudson RN 08/10/22 10:56:26 Post-Care Text: The patient is free from signs and symptoms of infection Skin Assessment (Pre Procedure) FT Pre-Care Text: Implements protective measures to prevent skin/ tissue injury due to thermal or mechanical sources Evaluates for signs and symptoms of physical injury to skin and tissue Entry 1 Skin Integrity Intact, [place], Warm, and Skin Abnormality No Dry Outcomes Met? Yes Last Modified By: Tonya Hudson RN 08/10/22 10:44:19 Post-Care Text: The patient is free from signs and symptoms of injury caused by extraneous objects Patient Positioning FT Pre-Care Text: Identifies physical alterations that require additional precautions for procedure-specific positioning, verifies presence of prosthetics or corrective devices, positions the patient, evaluates the patient for signs and symptoms of injury as a result of positioning Entry 1 Procedure COLONOSCOPY(.) Body Position Lateral, right side up Feet Uncrossed? Yes Left Arm Position Resting at Side Right Arm Position Resting at Side Left Leg Position Extended Right Leg Posi (more content not included)... Normal [facility] Postoperative Documentson Postoperative Documents [id number]#1 .00CD:127 [facility] Consenton 08-12-2022 Consent [id number]# 1.00CD:127 [facility] Discharge Instructionson Discharge Instructions [id number]# 1.00CD:127 [facility] IntraOperative Documentson 10-13-2021 IntraOperative Documents [id number]# 1.00CD:127 [facility] Consent for Treatmenton 07-23 Consent for Treatment [id number]#1 .00CD:127 [facility] Inpatient Patient Summaryon 08-10-2022 Inpatient Patient Summary [address] [address] [facility] Clinical Discharge Instructions PERSON INFORMATION Name: TERRY OLGUIN PHYSICIANS Admitting Physician: Jr Akbar MD Attending Physician: Jr Akbar MD PCP: Anna Marie Liu CNP Discharge Diagnosis: Comment: PATIENT EDUCATION INFORMATION Instructions: Colonoscopy, Adult, Care After Medication Leaflets: Follow up: With: Address: When: Jr Akbar Comments: will call with results Type Location Start Finish State Open [facility] 12/23/2022 8:40 AM 12/23/2022 9:00 AM Confirmed MEDICATION LIST Medications to Continue with No Changes Other Medications doxycycline (doxycycline hyclate 100 mg Cap) 1 Capsules By Mouth every day. with fluids. Refills: 5. glucosamine (glucosamine 500 mg Cap) 1,000 Milligram By Mouth every day. metronidazole topical (metronidazole topical 0.75% gel) 1 Application Topical 2 times a day. apply a thin film to affected area after washing, morning and night. Refills: 1. phenylephrine topical (Preparation H Cooling Gel 0.25% rectal) 1 Application Topical 2 times a day as needed for itching. Refills: 0. simvastatin (simvastatin 40 mg Tab) 1 Tablets By Mouth once a day (at bedtime). Refills: 3. Comment: Normal [facility] Main OR PACU I Recordon 07-23 Main OR PACU I Record PACU Phase I Docum ent Type FT Summary Primary Physician: Jr Akbar MD Finalized Date/Time: 08/10/22 11:47:26 Pt. Name: TERRY OLGUIN Himanshu Trevino/Sex: 1950 Male Med Rec #: [id number] Physician: Jr Akbar MD Financial #: [id number] Pt. Type: O Room/Bed: / Admit/Disch: 08/10/22 10:03:50 - Institution: Case Times PACU I FT Pre-Care Text: Identifies barriers to communication and implements measures to provide psychological support Develops individualized plan of care, and ensures continuity of care Maintains patient's dignity and privacy, and maintains patient confidentiality Identifies and reports philosophical, cultural, and spiritual beliefs and values Identifies individual values and wishes concerning care Implements aseptic technique, and administers prescribed antibiotic therapy and immunizing agents as ordered Evaluates postoperative tissue perfusion Implements thermoregulation measures, and monitors body temperature Evaluates postoperative respiratory status Evaluates postoperative cardiac status Evaluates postoperative neurological status Assesses pain control, collaborated in initiating patient-controlled analgesia and implements alternative methods of pain control Verifies allergies, administers prescribed medications and solutions, evaluates response to medications Entry 1 In PACU I 08/10/22 11:00:00 Discharge from PACU 08/10/22 11:30:00 I Outcomes Met? Yes Last Modified By: Tani Knutson RN 08/10/22 11:47:12 Post-Care Text: The patient demonstrates knowledge of the expected response to the operative or invasive procedure The patient's care is consistent with the individualized perioperative plan of care The patient's right to privacy is maintained The patient's value system, lifestyle, ethnicity, and culture are considered, respected, and incorporated into the perioperative plan of care The patient participates in decisions affecting his or her perioperative plan of care The patient is free from signs and symptoms of infection The patient has wound/tissue perfusion consistent with or improved from baseline levels established preoperatively The patient is at or returning to normothermia at the conclusion of the immediate postoperative period The patient's respiratory function is consistent with or improved from baseline levels established preoperatively The patient's cardiovascular status is consistent with or improved from baseline levels established preoperatively The patient's cardiovascular status is consistent with or improved from baseline levels established preoperatively The patient demonstrates and/or reports adequate pain control throughout the perioperative period The patient received appropriate medication(s), safely administered during the perioperative period Acuity Level PACU I FT Entry 1 Start Time 08/10/22 11:00:00 Stop Time 08/10/22 11:30:00 Acuity Level Acuity Level I Last Modified By: Tani Knutson RN 08/10/22 11:47:24 Finalized By: Tani Knutson RN Document Signatures Signed By: Tani Knutson RN 08/10/22 11:47 [facility] Main OR Preoperative Recordo n 08-10-2022 Main OR Preoperative Record Holding Area Document Type FT Summary Primary Physician: Jr Akbar MD Finalized Date/Time: 08/10/22 10:12:33 Pt. Name: TERRY OLGUIN /Sex: 1950 Male Med Rec #: [id number] Physician: Jr Akbar MD Financial #: [id number] Pt. Type: O Room/Bed: / Admit/Disch: 08/10/22 10:03:50 - Institution: Case Times Holding FT Pre-Care Text: Verifies consent for planned procedure, identifies individual values and wishes concerning care, includes family members in perioperative teaching Secures patient's records' belongings, and valuables, maintains patient's dignity and privacy, and maintains patient confidentiality Entry 1 In Holding 08/10/22 10:04:00 Outcomes Met? Yes Last Modified By: Liseth Diaz RN 08/10/22 10:11:29 Post-Care Text: The patient participates in decisions affecting his or her perioperative plan of care The patient's right to privacy is maintained Surgery Checklist FT Entry 1 Patient Birthday, ID Band Procedure History and Physical, Identification: Check, Patient Verification: Surgical Consent, With Participation Patient NPO after Midnight: Yes Results Reviewed Clear Comments: Personal Items: Jewelry Personal Items Ring Comment: Complaints of Pain: No Pain Comment: Denies Operative Site n/a Availability Equipment Marking: Verified: Does Patient Smoke No Patient states Yes Comment - Adult Mattie- postop adult Supervision supervision available Case Cancelled in No Holding Area see comments below for reason Last Modified By: Liseth Diaz RN 08/10/22 10:12:30 General Comments: Pt completed prep at 0700 and remained NPO since/RAVI MCCLELLAN Finalized By: Liseth Diaz RN Document Signatures Signed By: Liseth Diaz RN 08/10/22 10:12 Normal [facility] Monitor Recordon 08-10-2022 Monitor Record [id number]# 1.00CD:127 Normal [facility] Monitor Record [id number]# 1.00CD:127 Normal [facility] Operative Reporton Operative Report Patient: TERRY OLGUIN Age: 72 years Sex: Male : 1950 Associated Diagnoses: None Author: Jr Akbar MD Pre-Procedure Procedure Date 08/10/2022 11:48:00 . Procedure Type: Colonoscopy with removal of tumor(s), polyp(s), or other lesion(s) by cold snare technique. Procedure provider Performed by Jr Akbar MD. Current history and physical Documented on chart. excision lipoma left forearm-local on 06/07/2015 at 65 Years. Colonoscopy ([id number]) on 12/11/2011 at 61 Years. Comments: 07/20/2022 13:11 Marlene Mo MA, Dr. at [facility]. When called for records [facility]'s MR states it's out of retention range-LML Excision of lesion of joint of shoulder ([id number]) in the month of 09/2008 at 58 Years. Comments: 03/28/2019 8:57 Avani Kincaid right shoulder and posterior scalp Excision of hand lesion ([id number]) in the month of 07/2004 at 54 Years. Comments: 03/28/2019 8:57 Avani Kincaid right Hernia repair ([id number]).. Past Medical History Resolved Lumbosacral radiculitis (90312114): Resolved. Backache (670531093): Resolved. Displacement of intervertebral disc without myelopathy (015365159): Resolved. Tachycardia (3196674): Resolved. Acute respiratory failure with hypoxia (190327991): Resolved. Pneumonia due to COVID-19 virus (0447745081): Resolved. Hyponatremia (350381708): Resolved. 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 Pneumonia (841543821): Resolved.. Family History History is unknown.. Procedure History excision lipoma left forearm-local on 06/07/2015 at 65 Years. Colonoscopy ([id number]) on 12/11/2011 at 61 Years. Comments: 07/20/2022 13:11 Marlene Mo MA, Dr. at [facility]. When called for records [facility]'s MR states it's out of retention range-LML Excision of lesion of joint of shoulder (185011031) in the month of 09/2008 at 58 Years. Comments: 03/28/2019 8:57 Avani Kincaid right shoulder and posterior scalp Excision of hand lesion ([id number]) in the month of 07/2004 at 54 Years. Comments: 03/28/2019 8:57 Avani Kincaid right Hernia repair ([id number]).. Colorectal neoplasm risk assessment Average risk. Informed Consent After discussing the rationale, risks and benefits, and alternatives to this procedure, the patient provided signed consent for the procedure. Pre-procedure diagnosis: Age 50 years or over. Medications (Selected) Inpatient Medications Ordered Lactated Ringers IV Sophie 1000 mL 1,000 mL: 1,000 mL, IV, 100 mL/hr, Routine, Start date 08/10/22 11:04:00 EST, 10 hour(s), Total volume (mL): 1,000, 99 kg, 2.22, m2 Sodium Chloride 0.9% IV Sophie 1000 mL 1,000 mL: 1,000 mL, IV, 20 mL/hr, Routine, Start date 08/10/22 7:24:00 EST, 50 hour(s), Total volume (mL): 1,000, 99 kg, 2.22, m2 Prescriptions Prescribed Preparation H Cooling Gel 0.25% rectal: 1 emily, Topical, BID for itching, 54 gram, Refill(s) 0, [facility]/pharmacy #[id number], 180, cm, 01/01/22 9:11:00 EDT, Height/Length Dosing, 97.4, kg, 01/01/22 9:11:00 EDT, Weight Dosing doxycycline hyclate 100 mg Cap: 100 mg = 1 cap(s), Oral, Daily, with fluids, # 30 cap(s), Refills(s) 5, Pharmacy: [facility] #[id number], 180, cm, 01/01/22 9:11:00 EDT, Height/Length Dosing, 97.4, kg, 01/01/22 9:11:00 EDT, Weight Dosing metronidazole topical 0.75% gel: 1 emily, Topical, BID, 45 gram, Refill(s) 1, apply a thin film to affected area after washing, morning and night, [id number], 180, cm, 06/24/22 9:05:00 EDT, Height/Length Dosing, 98.3, kg, 06/24/22 9:05:00 EDT, Weight Dosing simvastatin 40 mg Tab: 40 mg = 1 tab(s), Oral, Once a day (at bedtime), # 90 tab(s), Refills(s) 3, Pharmacy: [facility]/pharmacy #[id number], 180, cm, 11/03/21 13:55:00 EDT, Height/Length Dosing, 99.1, kg, 11/03/21 13:55:00 EDT, Weight Dosing Documented Medications Documented glucosamine 500 mg Cap: 1,000 mg, Oral, Daily, # 30 cap(s), Refills(s) 0, Prophylaxis ASA Classification: Class II. . Monitoring: See anesthesia record. . Procedure The procedure was performed in the hospital. See anesthesia record for sedation given during procedure. Rectal exam was performed and was normal. The patient was positioned starting in the left lateral decubitus position. Endoscope type used was an adult-size. The endoscope was lubricated then introduced through the anus. The scope was advanced to the cecum verified by photographing the appendiceal orifice. No difficulties encountered during the procedure. The bowel preparation quality was excellent and was adequate (see polyps greater than or equal to 6 millimeters). The patient tolerated the procedure well. Findings A single polyp was noted. Intervention(s) included polypectomy with cold snare. Intervention was successful. Post-Procedure Complications: none. Estimated blood loss: none. Specimens: sent to pathology. Devices/ implants: none left in place. Impression and Plan Recommendations: Repeat colonoscopy:: 7 yrs. Follow-up:: Await biopsy res (more content not included)... Normal [facility] Comment on above: Result Comment: Elec tronically Signed By: Raffy COOMBS, Jr Hendricks\.br\Date and Time Signed: 08/10/22 11:49 EST Outpatient Surgery Discharge Instructionon 08-10-2022 Outpatient Surgery Discharge Instruction [place] [id number] Patient Discharge Instructions PERSON INFORMATION Name: TERRY OLGUIN Date of : 1950 Current Date: 08/10/2022 11:11:09 PHYSICIANS Admitting Physician: Jr Akbar MD Discharge Diagnosis: SERAFINTERRY HOYOS has been given the following list of follow-up instructions, prescriptions, and patient education materials: Discharge Activity: Ambulate as tolerated, Resume normal activities in 24 hours Discharge Restrictions: No driving for 24 hrs, Do not make important decisions for 24 hours, Do not drink alcoholic beverages for 24 hours Call Your Doctor For: Persistent or heavy bleeding, Temperature above 101.5 degrees, Severe pain at the operative site, Persistent vomiting IF UNABLE TO CONTACT YOUR PHYSICIAN AND YOU FEEL IT IS AN EMERGENCY, GO TO THE NEAREST EMERGENCY ROOM OR CALL 911 I, TERRY OLGUIN, have received the attached patient education materials/instruction s and have verbalized understanding: May we do a follow up call? Yes No I was present when discharge instructions were given Patient Signature Date Clinican/Nurse Signature Date Follow up: With: Address: When: Jr Akbar Comments: will call with results Type Location Start [facility] [place] [facility] 12/23/2022 8:40 AM 12/23/2022 9:00 AM Confirmed Pharmacy Information: [facility] [place] You may receive a survey from Saeed Gomez asking you to rate your care experience. Your feedback is important and will help us understand what we do well and how we can improve the quality of care we provide to you, your loved ones and our community. It?s an honor to serve you. Thank you for choosing [facility] HERE ARE THE MEDICATION CHANGES THAT OCCURRED DURING YOUR HOSPITAL STAY Medications to Continue with No Changes Other Medications doxycycline (doxycycline hyclate 100 mg Cap) 1 Capsules By Mouth every day. with fluids. Refills: 5. glucosamine (glucosamine 500 mg Cap) 1,000 Milligram By Mouth every day. metronidazole topical (metronidazole topical 0.75% gel) 1 Application Topical 2 times a day. apply a thin film to affected area after washing, morning and night. Refills: 1. phenylephrine topical (Preparation H Cooling Gel 0.25% rectal) 1 Application Topical 2 times a day as needed for itching. Refills: 0. simvastatin (simvastatin 40 mg Tab) 1 Tablets By Mouth once a day (at bedtime). Refills: 3. PATIENT EDUCATION INFORMATION Instructions: Colonoscopy, Adult, Care After This sheet gives you information about how to care for yourself after your procedure. Your health care provider may also give you more specific instructions. If you have problems or questions, contact your health care provider. What can I expect after the procedure? After the procedure, it is common to have: ? A small amount of blood in your stool for 24 hours after the procedure. ? Some gas. ? Mild abdominal cramping or bloating. Follow these instructions at home: General instructions ? For the first 24 hours after the procedure: ? Do not drive or use machinery. ? Do not sign important documents. ? Do not drink alcohol. ? Do your regular daily activities at a slower pace than normal. ? Eat soft, kyho-vr-ixnmgo foods. ? Take vgqh-ncw-zxdmccy or prescription medicines only as told by your health care provider. Relieving cramping and bloating ? Try walking around when you have cramps or feel bloated. ? Apply heat to your abdomen as told by your health care provider. Use a heat source that your health care provider recommends, such as a moist heat pack or a heating pad. ? Place a towel between your skin and the heat source. ? Leave the heat on for 20?30 minutes. ? Remove the heat if your skin turns bright red. This is especially important if you are unable to feel pain, heat, or cold. You may have a greater risk of getting burned. Eating and drinking ? Drink enough fluid to keep your urine pale yellow. ? Resume your normal diet as instructed by your health care provider. Avoid heavy or fried foods that are hard to digest. ? Avoid drinking alcohol for as long as instructed by your health care provider. Contact a health care provider if: ? You have blood in your stool 2?3 days after the procedure. Get help right away if: ? You have more than a small spotting of blood in your stool. ? You pass large blood clots in your stool. ? Your abdomen is swollen. ? You have nausea or vomiting. ? You have a fe (more content not included)... Normal [facility] Patient Education - Texton 1 10-11-2021 Patient Education - Text Radiology Colonoscopy, Adult, Care After This sheet gives you information about how to care for yourself after your procedure. Your health care provider may also give you more specific instructions. If you have problems or questions, contact your health care provider. What can I expect after the procedure? After the procedure, it is common to have: ? A small amount of blood in your stool for 24 hours after the procedure. ? Some gas. ? Mild abdominal cramping or bloating. Follow these instructions at home: General instructions ? For the first 24 hours after the procedure: ? Do not drive or use machinery. ? Do not sign important documents. ? Do not drink alcohol. ? Do your regular daily activities at a slower pace than normal. ? Eat soft, zzmi-kh-leucli foods. ? Take [id number] or prescription medicines only as told by your health care provider. Relieving cramping and bloating ? Try walking around when you have cramps or feel bloated. ? Apply heat to your abdomen as told by your health care provider. Use a heat source that your health care provider recommends, such as a moist heat pack or a heating pad. ? Place a towel between your skin and the heat source. ? Leave the heat on for 20?30 minutes. ? Remove the heat if your skin turns bright red. This is especially important if you are unable to feel pain, heat, or cold. You may have a greater risk of getting burned. Eating and drinking ? Drink enough fluid to keep your urine pale yellow. ? Resume your normal diet as instructed by your health care provider. Avoid heavy or fried foods that are hard to digest. ? Avoid drinking alcohol for as long as instructed by your health care provider. Contact a health care provider if: ? You have blood in your stool 2?3 days after the procedure. Get help right away if: ? You have more than a small spotting of blood in your stool. ? You pass large blood clots in your stool. ? Your abdomen is swollen. ? You have nausea or vomiting. ? You have a fever. ? You have increasing abdominal pain that is not relieved with medicine. Summary ? After the procedure, it is common to have a small amount of blood in your stool. You may also have mild abdominal cramping and bloating. ? For the first 24 hours after the procedure, do not drive or use machinery, sign important documents, or drink alcohol. ? Contact your health care provider if you have a lot of blood in your stool, nausea or vomiting, a fever, or increased abdominal pain. This information is not intended to replace advice given to you by your health care provider. Make sure you discuss any questions you have with your health care provider. Document Released: 03/23/2005 Document Revised: 06/01/2018 Document Reviewed: 10/20/2016 [employer] Patient Education ? 2019 [employer]. [facility] Progress Note-Physicianon Progress Note-Physician Patient: TERRY OLGUIN Age: 72 years Sex: Male : 1950 Associated Diagnoses: None Author: Amrik Gonsalves DO Preoperative Information Anesthesia history: Patient History: Pt./ family denies any personal or family hx of problems/difficulties with anesthesia.. Re-eval prior to induction: Inital eval reviewed: No significant interval change, NPO guidelines met. Review of Systems Constitutional: See nursing pain assessment.. Cardiovascular: Cardiac risk assessment performed. Pt. denies any significant change in their cv hx.. Respiratory: Pt. denies any signicant change in their respiratory status.. Neurologic: Pt. denies any acute neurological changes.. Health Status Allergies: Allergic Reactions (Selected) No Known Allergies, Allergies (1) Active Reaction No Known Allergies None Documented Current medications: (Selected) Inpatient Medications Ordered Sodium Chloride 0.9% IV Sophie 1000 mL 1,000 mL: 1,000 mL, IV, 20 mL/hr, Routine, Start date 08/10/22 7:24:00 EST, 50 hour(s), Total volume (mL): 1,000, 99 kg, 2.22, m2 Prescriptions Prescribed Preparation H Cooling Gel 0.25% rectal: 1 emily, Topical, BID for itching, 54 gram, Refill(s) 0, [facility]/pharmacy #[id number], 180, cm, 01/01/22 9:11:00 EDT, Height/Length Dosing, 97.4, kg, 01/01/22 9:11:00 EDT, Weight Dosing doxycycline hyclate 100 mg Cap: 100 mg = 1 cap(s), Oral, Daily, with fluids, # 30 cap(s), Refills(s) 5, Pharmacy: [facility]/pharmacy #[id number], 180, cm, 01/01/22 9:11:00 EDT, Height/Length Dosing, 97.4, kg, 01/01/22 9:11:00 EDT, Weight Dosing metronidazole topical 0.75% gel: 1 emily, Topical, BID, 45 gram, Refill(s) 1, apply a thin film to affected area after washing, morning and night, [facility]/pharmacy #[id number], 180, cm, 06/24/22 9:05:00 EDT, Height/Length Dosing, 98.3, kg, 06/24/22 9:05:00 EDT, Weight Dosing simvastatin 40 mg Tab: 40 mg = 1 tab(s), Oral, Once a day (at bedtime), # 90 tab(s), Refills(s) 3, Pharmacy: [facility]/pharmacy #[id number], 180, cm, 11/03/21 13:55:00 EDT, Height/Length Dosing, 99.1, kg, 11/03/21 13:55:00 EDT, Weight Dosing Documented Medications Documented amLODIPine 10 mg Tab: 10 mg = 1 tab(s), Oral, Daily, Refills(s) 0, High blood pressure glucosamine 500 mg Cap: 1,000 mg, Oral, Daily, # 30 cap(s), Refills(s) 0, Prophylaxis, Medications (1) Active Scheduled: (0) Continuous: (1) Sodium Chloride 0.9% 1,000 mL 1,000 mL, IV, 20 mL/hr PRN: (0) Problem list: All Problems DVT of lower limb, acute / SNOMED CT 6480935548 / Confirmed BMI 30.0-30.9,adult / SNOMED CT 565403609 / Confirmed Hemorrhoids / SNOMED CT 403766851 / Confirmed History of COVID-19 / SNOMED CT 7033311679 / Confirmed Hyperlipidemia / SNOMED CT 60057796 / Confirmed Hypertension / SNOMED CT 3560185433 / Confirmed Non-smoker / SNOMED CT 36976640 / Confirmed Obesity / SNOMED CT 1271672452 / Confirmed Screening for prostate cancer / SNOMED CT 713058866 / Confirmed Screening for colon cancer / SNOMED CT 506329226 / Confirmed Seasonal allergies / SNOMED CT 7098367677 / Confirmed Vitamin D deficiency / SNOMED CT 34564619 / Confirmed Resolved: Acute respiratory failure with hypoxia / SNOMED CT 704916256 Resolved: At risk for falls / SNOMED CT 857498957 Problem added when Risk for Falls Careplan was initiated. Resolved due to patient discharge. 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 / SNOMED CT 430988807 Resolved: Hyponatremia / SNOMED CT 105434759 Resolved: Lumbosacral radiculitis / SNOMED CT 24520682 Resolved: Pneumonia / SNOMED CT 896482124 Resolved: Pneumonia due to COVID-19 virus / SNOMED CT 2400591372 Resolved: Tachycardia / SNOMED CT 5834733 Canceled: Acute hypoxemic respiratory failure due to COVID-19 / SNOMED CT 7644879634 Canceled: Patient had no falls in past year / SNOMED CT 3565614917 Canceled: On apixaban therapy / SNOMED CT 857406714 Canceled: Overweight with body mass index (BMI) of 29 to 29.9 in adult / SNOMED CT 1982112694, Active Problems (12) BMI 30.0-30.9,adult DVT of lower limb, acute Hemorrhoids History of COVID-19 Hyperlipidemia Hypertension Non-smoker Obesity Screening for colon cancer Screening for prostate cancer Seasonal allergies Vitamin D deficiency Histories Past Medical History: Resolved Lumbosacral radiculitis (25770836): Resolved. Backache (945706989): Resolved. 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 Tachycardia (0747116): Resolved. Acute respiratory failure with hypoxia (305335738): Resolved. Pneumonia due to COVID-19 virus (5998858647): Resolved. Hyponatremia (707410949): Resolved. Oxygen dependent (6596475711): Resolved. Pneumonia (098288927): Resolved. Family History: History is unknown. Procedure history: excision lipoma left forearm-local on 06/07/2015 at 65 Years. Colonoscopy ([id number]) (more content not included)... Normal [facility] Comment on above: Result Comment: Elec tronically Signed By: Amrik Gonsalves DO\.br\Date and Time Signed: 08/10/22 13:46 EST Progress Note-Physician Patient: TERRY OLGUIN Age: 72 years Sex: Male : 1950 Associated Diagnoses: None Author: Amrik Gonsalves DO Postoperative Information Post Operative Note: Post Anesthesia Care Unit. Physical Examination Vital Signs (last 24 hrs) Last Charted SBP H 159mmHg (AUG 10 11:25) DBP H 100mmHg (AUG 10 11:25) SpO2 95 % (AUG 10 11:25) Weight 99 kg (AUG 10 10:10) Pain assessment: Pain Assessment 08/10/2022 11:24 EST Pain Symptoms Self Report No, able to self report 08/10/2022 11:06 EST Pain Symptoms Self Report No, able to self report . General: No acute distress. HENT: dentition at preop baseline.. Respiratory: Respirations are non-labored. Cardiovascular: stable hemodynamics. Neurologic: interactive. Assessment Anesthetic outcome No anesthetic complications noted. Adequate pain relief. adequate hydration. PONV controlled. Plan Transfer/ Discharge: Patient can be discharged from PACU when criteria met. Condition good. Normal [facility] Comment on above: Result Comment: Elec tronically Signed By: Amrik Gonsalves DO\Date and Time Signed: 08/10/22 13:31 EST Ambulatory Visit Summaryon 1 09-19-2021 Ambulatory Visit Summary TERRY OLGUIN :1950 Visit Date:07/20/2022 Ambulatory Visit Instructions Your Diagnosis Screening for colon cancer BMI 30.0-30.9,adult Your Care Team Attending Physician - Jr Akbar MD Primary Care Physician - Anna Marie Liu CNP Referring Physician - Anna Marie Liu CNP This Is Your Medications List amlodipine (amLODIPine 10 mg Tab) apixaban (Eliquis 5 mg oral tablet) doxycycline (doxycycline hyclate 100 mg Cap) glucosamine (glucosamine 500 mg Cap) metronidazole topical (metronidazole topical 0.75% gel) phenylephrine topical (Preparation H Cooling Gel 0.25% rectal) simvastatin (simvastatin 40 mg Tab) Procedures Performed excision lipoma left forearm-local (06/07/2015), Colonoscopy (12/11/2011), Excision of lesion of joint of shoulder (09/2008), Excision of hand lesion (07/2004), Hernia repair. Discharge Vitals Heart Rate (Peripheral) 85 Blood Pressure 135/81 Height 180 cm Height 71 in Weight 99 kg Weight 217.8 lb BMI 30.56 What to do next Scheduled Follow-Up Appointments Wednesday. 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 Livingston in [place] approx 10 years prior Denies family history of colon cancer Denies rectal pain/abdominal pain/rectal bleeding/black stools History of Present Illness Terry Olguin was referred to us by Anna Marie Liu CNP, for a repeat colonoscopy. His last colonoscopy was performed 10 years ago per report; however, we do not have access to his outside medical records and we are unable to find a record of this procedure here at [facility]. 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 The patient denies any changes since his last colonoscopy. He denies any hematochezia. He believes he may have hemorrhoids. The patient denies any heart attack or stroke in the past year. He is no longer taking Eliquis. He had COVID-19 1 year ago and had a blood clot in his leg. He denies any abdominal surgery. Review of Systems Constitutional: no fever, no sweats, no weight loss. Eyes: no glasses, no blurred vision, no visual loss. ENMT: no dentures, no hoarseness, no swallowing difficulties, no hearing loss, no ear infection (s), no nose bleeds. Cardiovascular: normal blood pressure, no chest pain, regular heartbeat, no heart murmur. Respiratory: no shortness of breath, no cough, no wheezing, no asthma. Gastrointestinal: no nausea, no vomiting, no diarrhea, no constipation, no blood in stool, no change in bowel habits, no abdominal pain, no hepatitis. Genitourinary: no kidney stones, no urine infection, no difficulty passing urine. Musculoskeletal: no pain, no weakness. Skin: no changing moles, no rash, no skin lumps. Neurologic: no seizures, no epilepsy, no headache. Psychiatric: no emotional, no psychiatric problem. Endocrine: no thyroid, no diabetes. Heme/Lymph: no bleeding problems, no anemia, no blood clots, no transfusions. Allergy/Immunologic: no swollen lymph nodes/glands, no IV drug abuse. Other: Additional ROS info: Except as noted in the above Review of Systems and in the History of Present Illness, all other systems have been reviewed and are negative or noncontributory. Physical Exam Vitals & Measurements HR: 85(Peripheral) BP: 135/81 SpO2: 96% HT: 71 in HT: 180 cm WT: 99 kg WT: 217.8 lb BMI: 30.56 General: No acute distress Respiratory: Unlabored breathing on room air Cardiac: Regular rate and rhythm Abdomen: Soft nontender nondistended Assessment/Plan The patient is a 72-year-old male with a history of DVTs. 1. Screening for colon cancer (Z12.11: Encounter for screening for malignant neoplasm of colon) The patient will proceed with a repeat colonoscopy. We discussed preparation for colonoscopy as well as the risks, complications, and possible surgical options associated with the procedure. He would like to proceed with the procedure. Informed consent was obtained and signed by the patient today in the office. 2. BMI 30.0-30.9,adult (Z68.30: Body mass index [BMI] 30.0-30.9, adult) ATTESTATION: Documentation services were performed after patient or guardian consented to allow [employer] to record this visit. POOJA reservations specialist and provider reviewed before signing. POOJA: Jessika Will. 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 Medications amLODIPine 10 mg Tab, 10 mg= 1 tab(s), Oral, Daily, Not taking doxycycline hyclate 100 mg Cap, 100 mg= 1 cap(s), Oral, Daily, 5 refills Eliquis 5 mg oral tablet, 5 mg= 1 tab(s), Oral, BID, Not taking glucosamine 500 mg Cap, 1000 mg, Oral, Daily metronidazole topical 0.75% gel, 1 emily, Topical, BID, 1 refills Preparation H Cooling Gel 0.25% rectal, 1 emily, Topical, BID, PRN simvastatin 40 mg Tab, 40 mg= 1 tab(s), Oral, Once a day (at bedtime), 3 refills Allergies No Known Allergies Social History Alcohol - Denies Alcohol Use, 01/24/2013 Substance Abuse - Denies Substance Abuse, 01/24/2013 Tobacco - Denies Tobacco Use, 01/24/2013 Never (less than 100 in lifetime) Tobacco Use:. Never Smokeless Tobacco Use:., 07/20/2022 Family History Family history is unknown Immunizations Vaccine Date Status Comments influenza virus vaccine, inactiv (more content not included)... Normal [facility] Comment on above: Result Comment: Elec tronically Signed By: Jr Akbar MD\.br\Date and Time Signed: 07/20/22 13:35 EST\.br\Electronically Co-Signed By: Jessika Will\.br\Date and Time Co-Signed: 07/20/22 13:20 EST Patient Educationon 07-20-20 Patient Education Gastroenterology Obesity, Adult Obesity is the condition of having too much total body fat. Being overweight or obese means that your weight is greater than what is considered healthy for your body size. Obesity is determined by a measurement called BMI. BMI is an estimate of body fat and is calculated from height and weight. For adults, a BMI of 30 or higher is considered obese. Obesity can lead to other health concerns and major illnesses, including: ? Stroke. ? Coronary artery disease (CAD). ? Type 2 diabetes. ? Some types of cancer, including cancers of the colon, breast, uterus, and gallbladder. ? Osteoarthritis. ? High blood pressure (hypertension). ? High cholesterol. ? Sleep apnea. ? Gallbladder stones. ? Infertility problems. What are the causes? Common causes of this condition include: ? Eating daily meals that are high in calories, sugar, and fat. ? Being born with genes that may make you more likely to become obese. ? Having a medical condition that causes obesity, including: ? Hypothyroidism. ? Polycystic ovarian syndrome (PCOS). ? Binge-eating disorder. ? Traci syndrome. ? Taking certain medicines, such as steroids, antidepressants, and seizure medicines. ? Not being physically active (sedentary lifestyle). ? Not getting enough sleep. ? Drinking high amounts of sugar-sweetened beverages, such as soft drinks. What increases the risk? The following factors may make you more likely to develop this condition: ? Having a family history of obesity. ? Being a woman of descent. ? Being a man of descent. ? Living in an area with limited access to: ? [place], recreation centers, or sidewalks. ? Healthy food choices, such as grocery stores and farmers' markets. What are the signs or symptoms? The main sign of this condition is having too much body fat. How is this diagnosed? This condition is diagnosed based on: ? Your BMI. If you are an adult with a BMI of 30 or higher, you are considered obese. ? Your waist circumference. This measures the distance around your waistline. ? Your skinfold thickness. Your health care provider may gently pinch a fold of your skin and measure it. You may have other tests to check for underlying conditions. How is this treated? Treatment for this condition often includes changing your lifestyle. Treatment may include some or all of the following: ? Dietary changes. This may include developing a healthy meal plan. ? Regular physical activity. This may include activity that causes your heart to beat faster (aerobic exercise) and strength training. Work with your health care provider to design an exercise program that works for you. ? Medicine to help you lose weight if you are unable to lose 1 pound a week after 6 weeks of healthy eating and more physical activity. ? Treating conditions that cause the obesity (underlying conditions). ? Surgery. Surgical options may include gastric banding and gastric bypass. Surgery may be done if: ? Other treatments have not helped to improve your condition. ? You have a BMI of 40 or higher. ? You have life-threatening health problems related to obesity. Follow these instructions at home: Eating and drinking ? Follow recommendations from your health care provider about what you eat and drink. Your health care provider may advise you to: ? Limit fast food, sweets, and processed snack foods. ? Choose low-fat options, such as low-fat milk instead of whole milk. ? Eat 5 or more servings of fruits or vegetables every day. ? Eat at home more often. This gives you more control over what you eat. ? Choose healthy foods when you eat out. ? Learn to read food labels. This will help you understand how much food is considered 1 serving. ? Learn what a healthy serving size is. ? Keep low-fat snacks available. ? Limit sugary drinks, such as soda, fruit juice, sweetened iced tea, and flavored milk. ? Drink enough water to keep your urine pale yellow. ? Do not follow a fad diet. Fad diets can be unhealthy and even dangerous. Physical activity ? Exercise regularly, as told by your health care provider. ? Most adults should get up to 150 minutes of moderate-intensity exercise every week. ? Ask your health care provider what types of exercise are safe for you and how often you should exercise. ? Warm up and stretch before being active. ? Cool down and stretch after being active. ? Rest between periods of activity. Lifestyle ? Work with your health care provider and a dietitian to set a weight-loss goal that is healthy and reasonable for you. ? Limit your screen time. ? Find ways to reward yourself that do not involve food. ? Do not drink alcohol if: ? Your health care provider tells you not to drink. ? You are , may be , or are planning to become . ? If you drink alcohol: ? Limit how much you use to: ? 0?1 drink (more content not included)... Normal [facility] Ambulatory Visit Summaryon 1 08-24-2021 Ambulatory Visit Summary TERRY OLGUIN :1950 Visit Date:06/24/2022 Ambulatory Visit Instructions Your Diagnosis Hemorrhoids History of COVID-19 DVT of lower limb, acute Hyperlipidemia Hypertension Non-smoker BMI 30.0-30.9,adult Obesity Rosacea Your Care Team Attending Physician - Anna Marie Liu CNP Primary Care Physician - Anna Marie Liu CNP This Is Your Medications List metronidazole topical (metronidazole topical 0.75% gel) phenylephrine topical (Preparation H Cooling Gel 0.25% rectal) Contact prescribing physician if questions or concerns amlodipine (amLODIPine 10 mg Tab) apixaban (Eliquis 5 mg oral tablet) doxycycline (doxycycline hyclate 100 mg Cap) glucosamine (glucosamine 500 mg Cap) simvastatin (simvastatin 40 mg Tab) Procedures Performed excision lipoma left forearm-local (06/07/2015), Excision of lesion of joint of shoulder (09/2008), Excision of hand lesion (07/2004), Hernia repair. Discharge Vitals Temperature (Oral) 36.7 ?C Heart Rate (Peripheral) 70 Blood Pressure 140/72 Height 180 cm Height 71 in Weight 98.3 kg Weight 216.26 lb BMI 30.34 Medications What How Much When Why Instructions New metronidazole topical (metronidazole topical 0.75% gel) 1 Application Topical 2 times a day Rosacea Refills: 1 apply a thin film to affected area after washing, morning and night Pickup at [facility]/pharmacy #[id number] Unchanged phenylephrine topical (Preparation H Cooling Gel 0.25% rectal) 1 Application Topical 2 times a day as needed for for itching Hemorrhoids Unchanged amlodipine (amLODIPine 10 mg Tab) 1 Tablets By Mouth Every day Contact prescribing physician if questions or concerns Unchanged apixaban (Eliquis 5 mg oral tablet) 1 Tablets By Mouth 2 times a day Contact prescribing physician if questions or concerns Unchanged doxycycline (doxycycline hyclate 100 mg Cap) 1 Capsules By Mouth Every day Rosacea with fluids Contact prescribing physician if questions or concerns Unchanged glucosamine (glucosamine 500 mg Cap) 1,000 Milligram By Mouth Every day Contact prescribing physician if questions or concerns Unchanged simvastatin (simvastatin 40 mg Tab) 1 Tablets By Mouth Once a day (at bedtime) HLD (hyperlipidemia) Contact prescribing physician if questions or concerns Pharmacy Information [facility]/pharmacy #[id number]: [address], [place] [phone] Medications and Immunizations Administered Not Given influenza virus vaccine, inactivated, Patient Refuses Allergies No Known Allergies Problems Ongoing - Any problem that you are currently receiving treatment for. BMI 30.0-30.9,adult DVT of lower limb, acute Hemorrhoids History of COVID-19 Hyperlipidemia Hypertension Non-smoker Obesity Screening for prostate cancer Seasonal allergies Vitamin D deficiency Historical - Any problem that you are no longer receiving treatment for. 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 Hyponatremia Lumbosacral radiculitis Oxygen dependent Pneumonia Pneumonia due to COVID-19 virus Tachycardia Normal [facility] Ambulatory Visit Summary TERRY OLGUIN :1950 Visit Date:06/24/2022 Ambulatory Visit Instructions Your Diagnosis Hemorrhoids History of COVID-19 DVT of lower limb, acute Hyperlipidemia Hypertension Non-smoker BMI 30.0-30.9,adult Obesity Rosacea Your Care Team Attending Physician - Anna Marie Liu CNP Primary Care Physician - Anna Marie Liu CNP This Is Your Medications List metronidazole topical (metronidazole topical 0.75% gel) phenylephrine topical (Preparation H Cooling Gel 0.25% rectal) Contact prescribing physician if questions or concerns amlodipine (amLODIPine 10 mg Tab) apixaban (Eliquis 5 mg oral tablet) doxycycline (doxycycline hyclate 100 mg Cap) glucosamine (glucosamine 500 mg Cap) simvastatin (simvastatin 40 mg Tab) Procedures Performed excision lipoma left forearm-local (06/07/2015), Excision of lesion of joint of shoulder (09/2008), Excision of hand lesion (07/2004), Hernia repair. Discharge Vitals Temperature (Oral) 36.7 ?C Heart Rate (Peripheral) 70 Blood Pressure 140/72 Height 180 cm Height 71 in Weight 98.3 kg Weight 216.26 lb BMI 30.34 Medications What How Much When Why Instructions New metronidazole topical (metronidazole topical 0.75% gel) 1 Application Topical 2 times a day Rosacea Refills: 1 apply a thin film to affected area after washing, morning and night Pickup at [facility]/pharmacy #[id number] Unchanged phenylephrine topical (Preparation H Cooling Gel 0.25% rectal) 1 Application Topical 2 times a day as needed for for itching Hemorrhoids Unchanged amlodipine (amLODIPine 10 mg Tab) 1 Tablets By Mouth Every day Contact prescribing physician if questions or concerns Unchanged apixaban (Eliquis 5 mg oral tablet) 1 Tablets By Mouth 2 times a day Contact prescribing physician if questions or concerns Unchanged doxycycline (doxycycline hyclate 100 mg Cap) 1 Capsules By Mouth Every day Rosacea with fluids Contact prescribing physician if questions or concerns Unchanged glucosamine (glucosamine 500 mg Cap) 1,000 Milligram By Mouth Every day Contact prescribing physician if questions or concerns Unchanged simvastatin (simvastatin 40 mg Tab) 1 Tablets By Mouth Once a day (at bedtime) HLD (hyperlipidemia) Contact prescribing physician if questions or concerns Pharmacy Information [facility]/pharmacy #[id number]: [address] [place], [place] [id number] [phone] Medications and Immunizations Administered Not Given influenza virus vaccine, inactivated, Patient Refuses Allergies No Known Allergies Problems Ongoing - Any problem that you are currently receiving treatment for. BMI 30.0-30.9,adult DVT of lower limb, acute Hemorrhoids History of COVID-19 Hyperlipidemia Hypertension Non-smoker Obesity Screening for prostate cancer Seasonal allergies Vitamin D deficiency Historical - Any problem that you are no longer receiving treatment for. 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 concerns of hemrrhoid problems. pt due for colorectal screening History of Present Illness Pt presents today for 6 month CDM f/u. Labs done 12/25/21, see below. Hx COVID-19, Pneumonia- denies CP, SOB, palpitations, dizziness. Back to his normal self. DVT lower right leg. Dx 07/02/21. Was on Eliquis BID but Pulm D/C'd and will observe. Denies leg pain or swelling. HTN- stopped taking Norvasc 10 mg a few months ago. How often are you checking your blood pressure? not What are your average readings? NA Are you compliant with your diet? no Do you exercise? [employer] fitness. Do you have any of the following symptoms: Chest pain? no Palpitations? no Dyspnea on exertion or shortness of breath? no Headache? no Peripheral edema? no Light-headedness? no HLD- Simvastatin 40 mg QD. Denies medication side effects. Rosacea: Doxy during flares. Would like a refill on topical Metronidazole he used in the past. Hemorrhoids- Prep H. From time to time there is still irritation. Preparation H does help. Pain and itching. No bloody stools. Denies constipation. Colonoscopy: 8 years ago at [facility]. PSA: 0.11 08/21/21. Review of Systems PHQ Score Initial Depression Screen Score: 0 Constitutional: no fever, no chills, no sweats, no weakness, no fatigue, no body aches. Skin: no jaundice, no rash, no skin lesions, no petechiae. Respiratory: no shortness of breath, no cough, no wheezing. Cardiovascular: no chest pain, no palpitations, no edema. Gastrointestinal: no nausea, no vomiting, no diarrhea, no constipation, no bleeding, no abdominal pain, reports occ hemorrhoids. Genitourinary: no dysuria, no hematuria, no frequency, no urgency, no hesitancy. Musculoskeletal: no back pain, no neck pain, no shoulder pain, no knee pain, no trauma/injury, no joint pain, no joint swelling, no muscle aches, no change in ROM. Neurovascular: no numbness, no tingling, no headaches, no dizziness. Psychological: see depression screen. Physical Exam Vitals & Measurements T: 36.7 ?C(Oral) HR: 70(Peripheral) BP: 140/72 SpO2: 97% HT: 71 in HT: 180 cm WT: 98.3 kg WT: 216.26 lb BMI: 30.34 General: well developed, well groomed, obese, in no acute distress. Eyes: pupils equal, round, reactive to light. Conjunctivae normal and sclera clear. Ears: bilateral external canals intact , no discharge. Hearing grossly normal to conversational speech. Neck: supple, no masses palpable. Trachea midline. Lungs: normal respiratory effort. Lungs clear and equal to auscultation throughout all olivarez anterior and posterior. Cardiovascular: S1 and S2 present, with regular rate and rhythm. No murmur. No carotid bruit heard. No peripheral edema. Abdomen: soft, non-distended, non-tender. Bowel sounds active throughout. Rectal: deferred. Musculoskeletal: Joints normal. No erythema, edema, effusion, crepitus, or ecchymosis. Gait steady without assistance. Neurologic: Cranial nerves II-XII grossly intact. Skin: [place], warm and dry. No rashes, ulcerations, or suspicious lesions noted on visible/exposed skin. Mental status: alert and oriented x 3. Normal mood and affect, normal behavior for age. Assessment/Plan 1. Hemorrhoids (K64.9: Unspecified hemorrhoids) Continue OT preparation H as is effective for him. Increase water and fiber in diet to prevent constipation. 2. DVT of lower limb, acute (I82.409: Acute embolism and thrombosis of unspecified deep veins of unspecified lower extremity) Will continue to observe. Denies pain/swelling. No longer on Eliquis per specialist. 3. Hyperlipidemia (E78.5: Hyperlipidemia, unspecified) Patient encouraged to eat a diet that is low in saturated fat. Importance of losing weight if you are overweight due to the body produces more lipids. Monitor alcohol intake and avoid smoking. Risk increases with family history of hyperlipidemia. Pt voices understanding with importance of monitoring dietary intake to reduce risk factors associated with CVA. Taking statin medications daily as directed. Will continue to follow up with office visits with updated labs as directed. Ordered: Lipid Panel 4. Hypertension (I10: Essential (primary) hypertension) No longer on meds, took himself off. Continue to stay active. Heart healthy diet. Labs ordered to be done prior to next appt. Ordered: CBC w/ Auto Diff Comprehensive Metabolic Panel 5. Non-smoker (Z78.9: Other specified health status) Continue non-smoking behaviors. 6. BMI 30.0-30.9,adult (Z68.30: Body mass index [BMI] 30.0-30.9, adult) The standard range for ages 18 and older is >=18.5 and < 25 kg/m2. Your BMI today was above this range, this falls in the obese category and there are medical benefits to weight loss. We can offer counselling, referral, and/or medical support in addressing this problem. Visit [employer] for useful information to help make better choices when eating. Your BMI and weight management will be followed (more content not included)... Normal [facility] Comment on above: Result Comment: Elec tronically Signed By: Anna Marie Liu CNP\Date and Time Signed: 06/24/22 09:30 EDT CHEMISTRYOrdered By: SYSTEM SYSTEM on 12-25-2021 25-hydroxyvitamin D3 [Mass/Vol] 49.5 ng/mL Normal 30.0 - 100.0 ng/mL [facility] Albumin [Mass/Vol] 4.2 g/dL Normal 3.3 - 5.0 gm/dL [facility] Albumin/Globulin [Mass ratio] 1.6 {ratio} Normal 1.1 - 2.2 [facility] ALP [Catalytic activity/Vol] 44 [iU]/d Normal 21 - 98 Int._Unit/L [facility] ALT No additional P-5'-P [Catalytic activity/Vol] 26 [iU]/d Normal 6 - 46 Int._Unit/L [facility] Anion gap [Moles/Vol] 11 mmol/L Normal 6 - 16 mEq/L [facility] AST [Catalytic activity/Vol] 23 [iU]/d Normal 5 - 43 Int._Unit/L [facility] Bilirubin [Mass/Vol] 0.7 mg/dL Normal 0.0 - 1 .1 mg/dL [facility] Calcium [Mass/Vol] 8.8 mg/dL Low 8.9 - 11. 1 mg/dL [facility] Chloride [Moles/Vol] 106 mmol/L Normal 101 - 1 11 mmol/L [facility] Cholesterol [Mass/Vol] 175 mg/dL Normal 120 - 200 mg/dL [facility] Cholesterol in HDL [Mass/Vol] 65 mg/dL Invalid Interpretation Code [facility] Cholesterol in LDL [Mass/Vol] 87 mg/dL Normal <=129mg/dL [facility] Cholesterol in VLDL [Mass/Vol] 27 mg/dL Normal 7 - 40 mg/dL [facility] CO2 [Moles/Vol] 25 mmol/L Normal 21 - 31 mmol/L [facility] Creatinine [Mass/Vol] 1.0 mg/dL Normal 0.5 - 1.3 mg/dL [facility] GFR/1.73 sq M.predicted among blacks MDRD (S/P/Bld) [Vol rate/Area] mL/min/1.73 m2 Normal >=59mL/min/1 .73 m2 [facility] Chem S GFR/1.73 sq M.predicted among non-blacks MDRD (S/P/Bld) [Vol rate/Area] mL/min/1.73 m2 Normal >=59mL/min/1 .73 m2 [facility] Chem S Globulin (S) [Mass/Vol] 2.6 g/dL Normal 1.4 - 4.0 gm/dL [facility] Glucose [Mass/Vol] 112 mg/dL Normal 55 - 199 mg/dL [facility] Potassium [Moles/Vol] 4.2 mmol/L Normal 3.5 - 5.3 mmol/L [facility] Prostate specific Ag [Mass/Vol] 2.2 ng/mL Normal 0.1 - 3.5 ng/mL [facility] Protein [Mass/Vol] 6.8 g/dL Normal 6.0 - 7.8 gm/dL [facility] Sodium [Moles/Vol] 138 mmol/L Normal 135 - 145 mmol/L [facility] Triglyceride [Mass/Vol] 134 mg/dL Normal <=149mg/dL [facility] Urea nitrogen [Mass/Vol] 21 mg/dL Normal 5 - 21 mg/dL [facility] Urea nitrogen/Creatinine [Mass ratio] 21 mg/mg High 10 - 20 [facility] HEMATOLOGYOrdered By: SYSTEM SYSTEM on 12-25-2021 Basophils/100 WBC (Bld) 0.9 % Normal 0.0 - 2.0 % [facility] Basophils/Leukocytes Auto (Bld) [Pure # fraction] 0.0 E9/L Normal 0.0 - 0.2 E9/L [facility] Eosinophils/100 WBC (Bld) 4.4 % Normal 0.0 - 8.0 % [facility] Eosinophils/Leukocyte s Auto (Bld) [Pure # fraction] 0.2 E9/L Normal 0.0 - 0.5 E9/L [facility] Lymphocytes/100 WBC (Bld) 40.9 % Normal 14.0 - 50.0 % [facility] Lymphocytes/Leukocyte s Auto (Bld) [Pure # fraction] 1.7 E9/L Normal 1.0 - 4.0 E9/L [facility] Monocytes/100 WBC (Bld) 11.0 % Normal 4.0 - 14.0 % [facility]Auto[facility] Monocytes/Leukocytes Auto (Bld) [Pure # fraction] 0.5 E9/L Normal 0.2 - 1.0 E9/L [facility] Neutrophils/100 WBC (Bld) 42.8 % Normal 36.0 - 75.0 % [facility] Neutrophils/Leukocyte s Auto (Bld) [Pure # fraction] 1.8 E9/L Low 2.0 - 7.5 E9/L [facility] HEMATOLOGYOrdered By: Tiny gordon on 12-25-2021 Erythrocyte distribution width (RBC) [Ratio] 13.4 % Normal 10.9 - 14.2 % [facility] Hematocrit (Bld) [Volume fraction] 46.3 % Normal 37.7 - 49.0 % [facility] Hemoglobin (Bld) [Mass/Vol] 15.7 g/dL Normal 13.5 - 17.5 gm/dL [facility] MCH (RBC) [Entitic mass] 30.4 pg Normal 27.0 - 34.0 pg [facility] MCHC (RBC) [Mass/Vol] 33.9 g/dL Normal 31.4 - 36.0 gm/dL [facility] MCV (RBC) [Entitic vol] 89.6 fL Normal 80.0 - 100.0 fL [facility] Platelet mean volume (Bld) [Entitic vol] 6.5 fL Normal 6.4 - 10.8 fL [facility] Platelets (Bld) [#/Vol] 208.0 E9/L Normal 150.0 - 500.0 E9/L [facility] HemeAutoSS RBC (Bld) [#/Vol] 5.2 E12/L Normal 4.3 - 5.9 E12/L [facility]eAutoSS WBC corrected for nucl RBC Auto (Bld) [#/Vol] 4.2 E9/L Normal 4.0 - 11.0 E9/L [facility] HemeAutoSS Vital Signs Date Time Vital Sign Value Performing Clinician Germaniai parthay 04-20-2023 08:50-0400 Blood Pressure Location Jr CAMPOS [facility] 04-20-2023 08:50-0400 Body temperature 97.88 [degF] Jr CAMPOS [facility] 04-20-2023 08:50-0400 Diastolic blood pressure 72 mm[Hg] Jr CAMPOS [facility] 04-20-2023 08:50-0400 Heart rate 83 /min Jr CAMPOS [facility] 04-20-2023 08:50-0400 SaO2% (BldA) [Mass fraction] 94 % Jr CAMPOS [facility] 04-20-2023 08:50-0400 Systolic blood pressure 134 mm[Hg] Jr CAMPOS [facility] 03-17-2023 12:00-0400 Diastolic blood pressure 90 mm[Hg] Jr CAMPOS [facility] 03-17-2023 12:00-0400 Mean blood pressure 107 mm[Hg] Jr CAMPOS [facility] 03-17-2023 12:00-0400 Systolic blood pressure 142 mm[Hg] Jr CAMPOS [facility] 03-17-2023 11:42-0400 Blood Pressure Location rJ CAMPOS [facility] 03-17-2023 11:42-0400 Body temperature 98.6 [degF] Jr CAMPOS [facility] 03-17-2023 11:42-0400 Diastolic blood pressure 98 mm[Hg] Jr CAMPOS [facility] 03-17-2023 11:42-0400 Heart rate 72 /min Jr CAMPOS [facility] 03-17-2023 11:42-0400 SaO2% (BldA) [Mass fraction] 96 % Jr CAMPSO [facility] 03-17-2023 11:42-0400 Systolic blood pressure 164 mm[Hg] Jr CAMPOS [facility] 08-10-2022 11:25-0500 Blood Pressure Location Jr Akbar [facility] 08-10-2022 11:25-0500 Diastolic blood pressure 100 mm[Hg] Jr Akbar [facility] 08-10-2022 11:25-0500 Heart rate 73 /min Jr Akbar [facility] 08-10-2022 11:25-0500 Respiratory rate 17 /min Jr Akbar [facility] 08-10-2022 11:25-0500 SaO2% (BldA) [Mass fraction] 95 % Jr Akbar [facility] 08-10-2022 11:25-0500 Systolic blood pressure 159 mm[Hg] Jr Akbar [facility] 08-10-2022 11:20-0500 Blood Pressure Location Jr Akbar [facility] 08-10-2022 11:20-0500 Diastolic blood pressure 96 mm[Hg] Jr Mourany [facility] 08-10-2022 11:20-0500 Heart rate 78 /min Jr Mourany [facility] 08-10-2022 11:20-0500 Respiratory rate 16 /min Jr Mourany [facility] 08-10-2022 11:20-0500 SaO2% (BldA) [Mass fraction] 95 % Jr Mourany [facility] 08-10-2022 11:20-0500 Systolic blood pressure 147 mm[Hg] Jr Mourany [facility] 08-10-2022 11:15-0500 Blood Pressure Location Jr Mourany [facility] 08-10-2022 11:15-0500 Diastolic blood pressure 92 mm[Hg] Jr Mourany [facility] 08-10-2022 11:15-0500 Heart rate 84 /min Jr Mourany [facility] 08-10-2022 11:15-0500 Respiratory rate 16 /min Jr Mourany [facility] 08-10-2022 11:15-0500 SaO2% (BldA) [Mass fraction] 95 % Jr Mourany [facility] 08-10-2022 11:15-0500 Systolic blood pressure 139 mm[Hg] Jr Mourany [facility] 08-10-2022 11:00-0500 Body temperature 98.78 [degF] Jr Mourany [facility] 08-10-2022 10:19-0500 Body temperature 98.6 [degF] Jr Mourany [facility] 07-20-2022 13:03-0500 Diastolic blood pressure 81 mm[Hg] Jr Salcedourany [facility] [place] 07-20-2022 13:03-0500 Heart rate 85 /min Jr Parksy [facility] [place] 07-20-2022 13:03-0500 SaO2% (BldA) [Mass fraction] 96 % Jr Parksy [facility] 07-20-2022 13:03-0500 Systolic blood pressure 135 mm[Hg] Jr Salcedoana cristinay [facility] 06-24-2022 08:59-0400 Blood Pressure Location Anna Marie Liu [facility] 06-24-2022 08:59-0400 Body temperature 98.06 [degF] Anna Marie Liu [facility] 06-24-2022 08:59-0400 Diastolic blood pressure 72 mm[Hg] Anna Marie Wernerell [facility] 06-24-2022 08:59-0400 Heart rate 70 /min Anna Marie Wernerell [facility] 06-24-2022 08:59-0400 SaO2% (BldA) [Mass fraction] 97 % Anna Marie Wernerell [facility] 06-24-2022 08:59-0400 Systolic blood pressure 140 mm[Hg] Anna Marie Liu [facility] 01-01-2022 09:04-0400 Blood Pressure Location Anna Marie Wernerell [facility] 01-01-2022 09:04-0400 Body temperature 97.16 [degF] Anna Marie Liu [facility] 01-01-2022 09:04-0400 Diastolic blood pressure 82 mm[Hg] Anna Marie Wernerell [facility] 01-01-2022 09:04-0400 Heart rate 82 /min Anna Mariechepe Wernerell [facility] 01-01-2022 09:04-0400 SaO2% (BldA) [Mass fraction] 97 % Anna Marie Liu [facility] 01-01-2022 09:04-0400 Systolic blood pressure 140 mm[Hg] Anna Marie Liu [facility] Encounters Encounter Date Encounter Type Care Provider Facility Start: 07-29-2023 End: 07-29-2023 ambulatory SIMRAN EPSTEIN Not Available Start: 04-21-2023 End: 04-22-2023 ambulatory Jr CAMPOS Facility:[place] Start: 04-21-2023 End: 04-21-2023 Patient encounter procedure Jr CAMPOS [facility] Start: 04-20-2023 End: 04-21-2023 ambulatory Jr CAMPOS Facility:[facility] Start: 04-20-2023 End: 04-20-2023 Patient encounter procedure Jr CAMPOS [facility] Start: 04-14-2023 End: 04-15-2023 ambulatory Jr CAMPOS Facility:[facility] Start: 04-14-2023 End: 04-14-2023 Patient encounter procedure Jr Barros MONI [facility] Start: 03-17-2023 End: 03-18-2023 ambulatory Jr CAMPOS Facility:[facility] Start: 03-17-2023 End: 03-17-2023 Patient encounter procedure Jr Barros CAMPOS [facility] Start: 02-03-2023 End: 02-04-2023 ambulatory Jr Barros CAMPOS Facility:[facility] Start: 02-02-2023 End: 02-03-2023 ambulatory Jr CAMPOS Facility:[facility] Start: 02-02-2023 End: 02-02-2023 Patient encounter procedure Jr Barros MONI [facility] Start: 02-02-2023 ambulatory Facility:[id number] Start: 01-13-2023 End: 01-14-2023 ambulatory Jr CAMPOS Facility:[facility] Start: 01-08-2023 End: 01-09-2023 ambulatory Jr CAMPOS Facility:[facility] Start: 12-23-2022 ambulatory DEXIGRAPH OPERATOR Anna Marie Liu Fa cility:[facility] Start: 08-10-2022 End: 08-11-2022 ambulatory Jr Akbar Facility:[facility] Start: 08-10-2022 End: 08-10-2022 Patient encounter procedure Jr Akbar [facility] Start: 07-20-2022 End: 07-21-2022 ambulatory Jr Akbar Facility:[facility] Start: 07-20-2022 End: 07-20-2022 Patient encounter procedure Jr Akbar [facility] [place] Start: 06-24-2022 End: 06-25-2022 ambulatory DEXIGRAPH OPERATOR Anna Marie Liu Facility:[place] Start: 06-24-2022 End: 06-24-2022 Patient encounter procedure Anna Marie Liu [facility] Start: 01-01-2022 End: 01-01-2022 Patient encounter procedure Anna Marie Liu [facility] Start: 12-25-2021 End: 12-25-2021 Patient encounter procedure Anna Marie Liu [facility] Start: 12-01-2021 End: 12-01-2021 Patient encounter procedure Maurizio JOY [facility] Procedures Date Procedure Procedure Detail Performing Clinician Start: 06-07-2015 excision lipoma left forearm-local Maurizio JOY Start: 12-11-2011 Colonoscopy Jr Ellis ria Comment on above: Dr. Livingston at [facility]. When called for records [facility]'s MR states it's out of retention range-LML Start: 09-23-2008 Excision of lesion o f joint of shoulder Maurizio JOY Comment on above: right shoulder and p osterior scalp Start: 07-23-2004 Excision of hand lesion Maurizio JOY Comment on above: right Hernia repair Maurizio JOY Plan of Treatment Date Care Activity Detail Author Start: 10-18-2023 ambulatory Ambulatory Facility:[facility] Immunizations Immunization Date Immunization Notes Care Provider Fa joslyn 12-01-2021 COVID-19, mRNA, LNP- S, PF, 30 mcg/0.3 mL dose Maurizio JOY [facility] 06-30-2017 influenza virus vaccine, unspecified formulation Anna Marie Liu [facility] 06-25-2016 pneumococcal polysaccharide vaccine, 23 valent Anna Marie Liu [facility] 06-16-2012 tetanus toxoid, redu peggy diphtheria toxoid, and acellular pertussis vaccine, adsorbed Anna Marie Liu [facility] 06-16-2012 zoster vaccine, live Anna Marie Liu [facility] NEGATED: Highlighted row has not occurred!06-24-2022 influenza virus vaccine, unspecified formulation Anna Marie Liu [facility] NEGATED: Highlighted row has not occurred!08-28-2021 influenza virus vaccine, unspecified formulation Maurizio BENITA [facility] NEGATED: Highlighted row has not occurred!08-28-2021 SARS-CoV-2 (COVID-19) Ad26 vaccine, recombinant Maurizio LARSONMIGUEL ÁNGEL [facility] Payers Date Payer Category Payer Private Health Insurance [id number] 2023 Private Health Insurance 2023 Unknown 2022 Private Health Insurance [id number] 2022 Unknown [id number] 2021 Unknown [id number] 1950 Unknown [id number] 2.16.8 [id number] 1950 Unknown [id number] 2.16.8 [id number] 1950 Unknown [id number] 2.16.8 [id number] 1950 Unknown [id number] 2.16.8 [id number] 1950 Unknown [id number] 2.16.8 [id number] 1950 Unknown [id number] 2.16.8 [id number] 1950 Unknown [id number] 2.16.8 [id number] 1950 Unknown [id number] 2.16.8 [id number] 1950 Unknown [id number] 2.16.8 [id number] 1950 Unknown [id number] 2.16.8 [id number] 1950 Unknown [id number] 2.16.8 [id number] 1950 Unknown [id number] 2.16.8 [id number] 1950 Unknown [id number] 2.16.8 [id number] 1950 Unknown [id number] 2.16. [id number] 1950 Unknown [id number] 2.16.840 .[id number] Social History Date Type Detail Facility Start: 10-02-2021 End: 04-20-2023 Tobacco smoking status Never smoked tobacco (finding) [facility] Tobacco smoking status Never [facility] Sex Assigned At Male [facility] Functional Status Date Assessment Result Facility 04-20-2023 Functional Status N/A [facility] 03-17-2023 Functional Status N/A [facility] 08-10-2022 Functional Status N/A [facility] 06-24-2022 Functional Status N/A [facility] Clinical Notes 01-01-2022 to 04-20-2023 Note Date & Type Note Facility 04-20-2023 Hospital Discharg e instructions Patient Education 04/20/2023 09:09:21 Hypertension, Adult, [id number] Hypertension, Adult Hypertension is another name for high blood pressure. High blood pressure forces your heart to work harder to pump blood. This can cause problems over time. There are two numbers in a blood pressure reading. There is a top number (systolic) over a bottom number (diastolic). It is best to have a blood pressure that is below 120/80. What are the causes? The cause of this condition is not known. Some other conditions can lead to high blood pressure. What increases the risk? Some lifestyle factors can make you more likely to develop high blood pressure: Smoking. Not getting enough exercise or physical activity. Being overweight. Having too much fat, sugar, calories, or salt (sodium) in your diet. Drinking too much alcohol. Other risk factors include: Having any of these conditions: ?Heart disease. ?Diabetes. ? High cholesterol. ?Kidney disease. ?Obstructive sleep apnea. Having a family history of high blood pressure and high cholesterol. Age. The risk increases with age. Stress. What are the signs or symptoms? High blood pressure may not cause symptoms. Very high blood pressure (hypertensive crisis) may cause: Headache. Fast or uneven heartbeats (palpitations). Shortness of breath. Nosebleed. Vomiting or feeling like you may vomit (nauseous). Changes in how you see. Very bad chest pain. Feeling dizzy. Seizures. How is this treated? This condition is treated by making healthy lifestyle changes, such as: ?Eating healthy foods. ?Exercising more. ?Drinking less alcohol. Your doctor may prescribe medicine if lifestyle changes do not help enough and if: ?Your top number is above 130. ?Your bottom number is above 80. Your personal target blood pressure may vary. Follow these instructions at home: Eating and drinking If told, follow the DASH eating plan. To follow this plan: ?Fill one half of your plate at each meal with fruits and vegetables. ?Fill one fourth of your plate at each meal with whole grains. Whole grains include whole-wheat pasta, brown rice, and whole-grain bread. ?Eat or drink low-fat dairy products, such as skim milk or low-fat yogurt. ?Fill one fourth of your plate at each meal with low-fat (lean) proteins. Low-fat proteins include fish, chicken without skin, eggs, beans, and tofu. ?Avoid fatty meat, cured and processed meat, or chicken with skin. ?Avoid pre-made or processed food. Limit the amount of salt in your diet to less than 1,500 mg each day. Do not drink alcohol if: ?Your doctor tells you not to drink. ?You are , may be , or are planning to become . If you drink alcohol: ?Limit how much you have to: ?0 1 drink a day for women. ?0 2 drinks a day for men. ?Know how much alcohol is in your drink. In the [place] one drink equals one 12 oz bottle of beer (355 mL), one 5 oz glass of wine (148 mL), or one 1 oz glass of hard liquor (44 mL). Lifestyle Work with your doctor to stay at a healthy weight or to lose weight. Ask your doctor what the best weight is for you. Get at least 30 minutes of exercise that causes your heart to beat faster (aerobic exercise) most days of the week. This may include walking, swimming, or biking. Get at least 30 minutes of exercise that strengthens your muscles (resistance exercise) at least 3 days a week. This may include lifting weights or doing Pilates. Do not smoke or use any products that contain nicotine or tobacco. If you need help quitting, ask your doctor. Check your blood pressure at home as told by your doctor. Keep all follow-up visits. Medicines Take dppw-hzt-featnai and prescription medicines only as told by your doctor. Follow directions carefully. Do not skip doses of blood pressure medicine. The medicine does not work as well if you skip doses. Skipping doses also puts you at risk for problems. Ask your doctor about side effects or reactions to medicines that you should watch for. Contact a doctor if: You think you are having a reaction to the medicine you are taking. You have headaches that keep coming back. You feel dizzy. You have swelling in your ankles. You have trouble with your vision. Get help right away if: You get a very bad headache. You start to feel mixed up (confused). You feel weak or numb. You feel faint. You have very bad pain in your: ?Chest. ?Belly (abdomen). You vomit more than once. You have trouble breathing. These symptoms may be an emergency. Get help right away. Call 911. Do not wait to see if the symptoms will go away. Do not drive yourself to the hospital. Summary Hypertension is another name for high blood pressure. High blood pressure forces your heart to work harder to pump blood. For most people, a normal blood pressure is less than 120/80. Making healthy choices can help lower blood pressure. If your blood pressure does not get lower with healthy choices, you may need to take medicine. This information is not intended to replace advice given to you by your health care provider. Make sure you discuss any questions you have with your health care provider. Document Revised: 05/28/2022 Document Reviewed: 05/28/2022 [employer] Patient Education 2022 [employer]. Follow Up Care 03/17/2023 12:20:48 With:MONI COOMBS, Jr Barros, MED Address: [address] [place] [address] [place] [address]- When:Within 6 Month(s) [facility] 03-17-2023 Hospital Discharg e instructions Patient Education 03/17/2023 12:10:27 Hypertension, Adult, Mjou-zt-Elth Hypertension, Adult Hypertension is another name for high blood pressure. High blood pressure forces your heart to work harder to pump blood. This can cause problems over time. There are two numbers in a blood pressure reading. There is a top number (systolic) over a bottom number (diastolic). It is best to have a blood pressure that is below 120/80. What are the causes? The cause of this condition is not known. Some other conditions can lead to high blood pressure. What increases the risk? Some lifestyle factors can make you more likely to develop high blood pressure: Smoking. Not getting enough exercise or physical activity. Being overweight. Having too much fat, sugar, calories, or salt (sodium) in your diet. Drinking too much alcohol. Other risk factors include: Having any of these conditions: ?Heart disease. ?Diabetes. ? High cholesterol. ?Kidney disease. ?Obstructive sleep apnea. Having a family history of high blood pressure and high cholesterol. Age. The risk increases with age. Stress. What are the signs or symptoms? High blood pressure may not cause symptoms. Very high blood pressure (hypertensive crisis) may cause: Headache. Fast or uneven heartbeats (palpitations). Shortness of breath. Nosebleed. Vomiting or feeling like you may vomit (nauseous). Changes in how you see. Very bad chest pain. Feeling dizzy. Seizures. How is this treated? This condition is treated by making healthy lifestyle changes, such as: ?Eating healthy foods. ?Exercising more. ?Drinking less alcohol. Your doctor may prescribe medicine if lifestyle changes do not help enough and if: ?Your top number is above 130. ?Your bottom number is above 80. Your personal target blood pressure may vary. Follow these instructions at home: Eating and drinking If told, follow the DASH eating plan. To follow this plan: ?Fill one half of your plate at each meal with fruits and vegetables. ?Fill one fourth of your plate at each meal with whole grains. Whole grains include whole-wheat pasta, brown rice, and whole-grain bread. ?Eat or drink low-fat dairy products, such as skim milk or low-fat yogurt. ?Fill one fourth of your plate at each meal with low-fat (lean) proteins. Low-fat proteins include fish, chicken without skin, eggs, beans, and tofu. ?Avoid fatty meat, cured and processed meat, or chicken with skin. ?Avoid pre-made or processed food. Limit the amount of salt in your diet to less than 1,500 mg each day. Do not drink alcohol if: ?Your doctor tells you not to drink. ?You are , may be , or are planning to become . If you drink alcohol: ?Limit how much you have to: ?0 1 drink a day for women. ?0 2 drinks a day for men. ?Know how much alcohol is in your drink. In the [place] one drink equals one 12 oz bottle of beer (355 mL), one 5 oz glass of wine (148 mL), or one 1 oz glass of hard liquor (44 mL). Lifestyle Work with your doctor to stay at a healthy weight or to lose weight. Ask your doctor what the best weight is for you. Get at least 30 minutes of exercise that causes your heart to beat faster (aerobic exercise) most days of the week. This may include walking, swimming, or biking. Get at least 30 minutes of exercise that strengthens your muscles (resistance exercise) at least 3 days a week. This may include lifting weights or doing Pilates. Do not smoke or use any products that contain nicotine or tobacco. If you need help quitting, ask your doctor. Check your blood pressure at home as told by your doctor. Keep all follow-up visits. Medicines Take egth-gxc-yiitqbc and prescription medicines only as told by your doctor. Follow directions carefully. Do not skip doses of blood pressure medicine. The medicine does not work as well if you skip doses. Skipping doses also puts you at risk for problems. Ask your doctor about side effects or reactions to medicines that you should watch for. Contact a doctor if: You think you are having a reaction to the medicine you are taking. You have headaches that keep coming back. You feel dizzy. You have swelling in your ankles. You have trouble with your vision. Get help right away if: You get a very bad headache. You start to feel mixed up (confused). You feel weak or numb. You feel faint. You have very bad pain in your: ?Chest. ?Belly (abdomen). You vomit more than once. You have trouble breathing. These symptoms may be an emergency. Get help right away. Call 911. Do not wait to see if the symptoms will go away. Do not drive yourself to the hospital. Summary Hypertension is another name for high blood pressure. High blood pressure forces your heart to work harder to pump blood. For most people, a normal blood pressure is less than 120/80. Making healthy choices can help lower blood pressure. If your blood pressure does not get lower with healthy choices, you may need to take medicine. This information is not intended to replace advice given to you by your health care provider. Make sure you discuss any questions you have with your health care provider. Document Revised: 05/28/2022 Document Reviewed: 05/28/2022 [employer] Patient Education 2022 [employer]. Follow Up Care 01/13/2023 09:20:10 With:Jr CAMPOS MD, MED Address: [facility] [address], [place] [address]- When:Within 1 Month(s) [facility] 02-04-2023 Note Echocardiology Procedure Exam Date/Time Accession # Ordering Echo Transthoracic 02/02/2023 14:38 EDT [id number] Jr CAMPOS MD Complete CPT code 60721 64158 Reason for Exam (Echo Transthoracic Complete) R06.00;Dyspnea Report [facility] [address] [place] [address] Adult Echocardiogram Report Name: TERRY OLGUIN Study Date: 02/02/2023 01:10 PM BP: 139/74 mmHg Patient Location: [facility] HR: 78 : 1950 Gender: Male Height: 71 in Age: 72 yrs Ethnicity: T Weight: 214 lb Reason For Study: Dyspnea BSA: 2.2 m2 History: No cardiac history Ordering Physician: Jr CAMPOS Referring Physician: Jr CAMPOS Performed By: Fatemeh Gutierres, [facility] Interpretation Summary Normal LV and RV. Ejection Fraction = 55-60%. Mildly dilated aortic root and ascending aorta. Mild AI. Mildly elevated estimated PA pressure. Impaired diastolic relaxation. Procedure A complete two-dimensional transthoracic echocardiogram was performed (2D, M-mode, spectral and color flow Doppler). Study quality is good. Left Ventricle The left ventricle is normal in size. There is normal left ventricular wall thickness. Ejection Fraction = 55-60%. The left ventricular wall motion is normal. Grade I diastolic dysfunction, (abnormal relaxation pattern). Left Atrium The left atrium is mildly dilated. Right Atrium Right atrial size is normal. Echocardiology Report Right Ventricle The right ventricular systolic function is normal. The right ventricle is normal size. The right ventricular wall motion is normal. Aortic Valve The aortic valve is trileaflet. Mild aortic regurgitation. There is no aortic stenosis. Mitral Valve The mitral valve is normal in structure and function. There is no mitral regurgitation noted. No mitral valve stenosis. Tricuspid Valve Structurally normal tricuspid valve. Estimated right ventricular systolic pressure is mildly elevated. There is trace tricuspid regurgitation. Pulmonic Valve No evidence of stenosis. There is no pulmonic valve regurgitation. Arteries The aortic root is mildly dilated. The ascending aorta is mildly dilated. Pulmonary artery diameter is normal. Venous The inferior vena cava is normal in size, and collapses normally with respiration. Effusion There is no pericardial effusion. MMode/2D Measurements & Calculations RVDd: 3.6 cm LVIDd: 4.8 cm FS: 39.0 % Ao root diam: 4.3 cm IVSd: 1.4 cm LVIDs: 2.9 cm EDV(Teich): 108.2 ml Ao root area: 14.2 cm2 LVPWd: 1.2 cm ESV(Teich): 33.3 ml LA dimension: 4.1 cm EF(Teich): 69.3 % asc Aorta Diam: 3.3 cm LVLd ap4: 8.4 cm EDV(MOD-sp2): 93.5 ml SV(MOD-sp4): 61.3 ml EDV(MOD-sp4): 108.0 ml ESV(MOD-sp2): 38.5 ml LVLs ap4: 7.2 cm EF(MOD-sp2): 58.8 % ESV(MOD-sp4): 46.7 ml EF(MOD-sp4): 56.8 % TAPSE: 2.8 cm IVC Diam: 1.6 cm RVIDd/LVIDd: 0.75 EF (MOD-bp): 57.6 % LA Vol Index: 26.8 ml/m2 Doppler Measurements & Calculations MV E max kirt: 44.3 cm/sec Ao V2 max: 103.2 cm/sec AI max kirt: 462.0 cm/sec MV A max kirt: 49.0 cm/sec MV dec slope: 217.9 cm/sec2 Ao max P.3 mmHg AI max P.4 mmHg MV E/A: 0.90 MV dec time: 0.20 sec Ao V2 mean: 73.7 cm/sec Echocardiology Report Lat Peak E' Kirt: 8.8 cm/sec Ao mean P.4 mmHg AI dec slope: 192.6 cm/sec2 E/E' Lat: 5.0 Ao V2 VTI: 18.9 cm AI P1/2t: 702.7 msec Med Peak E' Kirt: 6.4 cm/sec E/E' Med: 6.9 LV V1 max P.7 mmHg TR max kirt: 294.3 cm/sec RAP systole: 3.0 mmHg AV P1/2t-pr: 703.7 msec LV V1 mean P.9 mmHg TR max P.6 mmHg AV VR: 0.93 LV V1 max: 96.0 cm/sec RVSP(TR): 37.6 mmHg LV V1 mean: 61.7 cm/sec LV V1 VTI: 16.8 cm MV P1/2t-pr_phl: 59.6 msec FINAL REPORT Dictated: 02/02/2023 1:10 pm Андрей Sheehan MD Signed (Electronic Signature): 02/04/2023 11:26 am Signed by: Андрей Sheehan MD Transcribed by: [facility] Technologist: JULES [facility] 08-12-2022 Note [id number]:127 [facility] 08-10-2022 Evaluation + Plan note Extrac serena from: Title:SAILAJA POSTOP Author:Amrik Gonsalves DO Date: 08/10/22 Plan Transfer/ Discharge: Patient can be discharged from PACU when criteria met. Condition good. Extracted from: Title:SAILAJA PREOP ENDO NOTE Author:Sariah Gonsalves DO Date:08/10/22 Plan [place] [employer] (ASA) physical status classification: Class II. Anesthetic Preoperative Plan Anesthesia: Monitored anesthesia care and general anesthesia possible. Anesthetic plan, risks, benefits, and alternatives discussed with the patient and/or family. Pt. and/or family present and agree to proceed as planned.. Risks discussed including heart, lung, nerve damage. Risks of bleeding, dental injury, hospitalization, and general injury discussed. . Future Appointments Appointment Date:12/23/2022 08:40:00 AM Scheduled Provider:Anna Maire Liu CNP Location:[facility] Appointment Type:FM Open Future Scheduled Tests Laboratory* Vitamin D 25 Hydroxy 01/01/22 * CBC w/ Auto Diff 06/24/22 * Comprehensive Metabolic Panel 01/01/22 * Comprehensive Metabolic Panel 06/24/22 * Lipid Panel 01/01/22 * Lipid Panel 06/24/22 [facility]12-19-2022 Hospital Discharge instructions Patient Education 08/10/2022 11:13:03 Colon Polyps Colon Polyps Polyps are tissue growths inside the body. Polyps can grow in many places, including the large intestine (colon). A polyp may be a round bump or a mushroom-shaped growth. You could have one polyp or several. Most colon polyps are noncancerous (benign). However, some colon polyps can become cancerous over time. Finding and removing the polyps early can help prevent this. What are the causes? The exact cause of colon polyps is not known. What increases the risk? You are more likely to develop this condition if you: Have a family history of colon cancer or colon polyps. Are older than 50 or older than 45 if you are . Have inflammatory bowel disease, such as ulcerative colitis or Crohn's disease. Have certain hereditary conditions, such as: ?Familial adenomatous polyposis. ?Moyer syndrome. ?Turcot syndrome. ?Peutz Jeghers syndrome. Are overweight. Smoke cigarettes. Do not get enough exercise. Drink too much alcohol. Eat a diet that is high in fat and red meat and low in fiber. Had childhood cancer that was treated with abdominal radiation. What are the signs or symptoms? Most polyps do not cause symptoms. If you have symptoms, they may include: Blood coming from your rectum when having a bowel movement. Blood in your stool. The stool may look dark red or black. Abdominal pain. A change in bowel habits, such as constipation or diarrhea. How is this diagnosed? This condition is diagnosed with a colonoscopy. This is a procedure in which a lighted, flexible scope is inserted into the anus and then passed into the colon to examine the area. Polyps are sometimes found when a colonoscopy is done as part of routine cancer screening tests. How is this treated? Treatment for this condition involves removing any polyps that are found. Most polyps can be removed during a colonoscopy. Those polyps will then be tested for cancer. Additional treatment may be needed depending on the results of testing. Follow these instructions at home: Lifestyle Maintain a healthy weight, or lose weight if recommended by your health care provider. Exercise every day or as told by your health care provider. Do not use any products that contain nicotine or tobacco, such as cigarettes and e-cigarettes. If you need help quitting, ask your health care provider. If you drink alcohol, limit how much you have: ?0 1 drink a day for women. ? 0 2 drinks a day for men. Be aware of how much alcohol is in your drink. In the [place] one drink equals one 12 oz bottle of beer (355 mL), one 5 oz glass of wine (148 mL), or one 1 oz shot of hard liquor (44 mL). Eating and drinking Eat foods that are high in fiber, such as fruits, vegetables, and whole grains. Eat foods that are high in calcium and vitamin D, such as milk, cheese, yogurt, eggs, liver, fish, and broccoli. Limit foods that are high in fat, such as fried foods and desserts. Limit the amount of red meat and processed meat you eat, such as hot dogs, sausage, harper, and lunch meats. General instructions Keep all follow-up visits as told by your health care provider. This is important. ?This includes having regularly scheduled colonoscopies. ?Talk to your health care provider about when you need a colonoscopy. Contact a health care provider if: You have new or worsening bleeding during a bowel movement. You have new or increased blood in your stool. You have a change in bowel habits. You lose weight for no known reason. Summary Polyps are tissue growths inside the body. Polyps can grow in many places, including the colon. Most colon polyps are noncancerous (benign), but some can become cancerous over time. This condition is diagnosed with a colonoscopy. Treatment for this condition involves removing any polyps that are found. Most polyps can be removed during a colonoscopy. This information is not intended to replace advice given to you by your health care provider. Make sure you discuss any questions you have with your health care provider. Document Released: 05/05/2005 Document Revised: 11/24/2018 Document Reviewed: 11/24/2018 [employer] Patient Education 2020 [employer]. 08/10/2022 11:13:03 Diverticulosis Diverticulosis Diverticulosis is a condition that develops when small pouches (diverticula) form in the wall of the large intestine (colon). The colon is where water is absorbed and stool is formed. The pouches form when the inside layer of the colon pushes through weak spots in the outer layers of the colon. Youmay have a few pouches or many of them. What are the causes? The cause of this condition is not known. What increases the risk? The following factors may make you more likely to develop this condition: Being older than age 60. Your risk for this condition increases with age. Diverticulosis is rare among people younger than age 30. By age 80, many people have it. Eating a low-fiber diet. Having frequent constipation. Being overweight. Not getting enough exercise. Smoking. Taking wglu-iml-wfvzxkt pain medicines, like aspirin and ibuprofen. Having a family history of diverticulosis. What are the signs or symptoms? In most people, there are no symptoms of this condition. If you do have symptoms, they may include: Bloating. Cramps in the abdomen. Constipation or diarrhea. Pain in the lower left side of the abdomen. How is this diagnosed? This condition is most often diagnosed during an exam for other colon problems. Because diverticulosis usually has no symptoms, it often cannot be diagnosed independently. This condition may be diagnosed by: Using a flexible scope to examine the colon (colonoscopy). Taking an X-ray of the colon after dye has been put into the colon (barium enema). Doing a CT scan. How is this treated? You may not need treatment for this condition if you have never developed an infection related to diverticulosis. If you have had an infection before, treatment may include: Eating a high-fiber diet. This may include eating more fruits, vegetables, and grains. Taking a fiber supplement. Taking a live bacteria supplement (probiotic). Taking medicine to relax your colon. Taking antibiotic medicines. Follow these instructions at home: Drink 6 8 glasses of water or more each day to prevent constipation. Try not to strain when you have a bowel movement. If you have had an infection before: ?Eat more fiber as directed by your health care provider or your diet and dairy nutrition specialist (dietitian). ?Take a fiber supplement or probiotic, if your health care provider approves. Take jzkg-oof-shpymba and prescription medicines only as told by your health care provider. If you were prescribed an antibiotic, take it as told by your health care provider. Do not stop taking the antibiotic even if you start to feel better. Keep all follow-up visits as told by your health care provider. This is important. Contact a health care provider if: You have pain in your abdomen. You have bloating. You have cramps. You have not had a bowel movement in 3 days. Get help right away if: Your pain gets worse. Your bloating becomes very bad. You have a fever or chills, and your symptoms suddenly get worse. You vomit. You have bowel movements that are bloody or black. You have bleeding from your rectum. Summary Diverticulosis is a condition that develops when small pouches (diverticula) form in the wall of the large intestine (colon). You may have a few pouches or many of them. This condition is most often diagnosed during an exam for other colon problems. If you have had an infection related to diverticulosis, treatment may include increasing the fiber in your diet, taking supplements, or taking medicines. This information is not intended to replace advice given to you by your health care provider. Make sure you discuss any questions you have with your health care provider. Document Released: 05/06/2005 Document Revised: 07/22/2018 Document Reviewed: 06/28/2017 [employer] Patient Education 2020 [employer]. 08/10/2022 11:02:46 Colonoscopy, Adult, Care After Colonoscopy, Adult, Care After This sheet gives you information about how to care for yourself after your procedure. Your health care provider may also give you more specific instructions. If you have problems or questions, contact your health care provider. What can I expect after the procedure? After the procedure, it is common to have: A small amount of blood in your stool for 24 hours after the procedure. Some gas. Mild abdominal cramping or bloating. Follow these instructions at home: General instructions For the first 24 hours after the procedure: ?Do not drive or use machinery. ?Do not sign important documents. ?Do not drink alcohol. ?Do your regular daily activities at a slower pace than normal. ?Eat soft, uzcz-lv-snowdp foods. Take iovm-bcd-rudaykk or prescription medicines only as told by your health care provider. Relieving cramping and bloating Try walking around when you have cramps or feel bloated. Apply heat to your abdomen as told by your health care provider. Use a heat source that your healthcare provider recommends, such as a moist heat pack or a heating pad. ?Place a towel between your skin and the heat source. ?Leave the heat on for 20 30 minutes. ?Remove the heat if your skin turns bright red. This is especially important if you are unable to feel pain, heat, or cold. You may have a greater risk of getting burned. Eating and drinking Drink enough fluid to keep your urine pale yellow. Resume your normal diet as instructed by your health care provider. Avoid heavy or fried foods thatare hard to digest. Avoid drinking alcohol for as long as instructed by your health care provider. Contact a health care provider if: You have blood in your stool 2 3 days after the procedure. Get help right away if: You have more than a small spotting of blood in your stool. You pass large blood clots in your stool. Your abdomen is swollen. You have nausea or vomiting. You have a fever. You have increasing abdominal pain that is not relieved with medicine. Summary After the procedure, it is common to have a small amount of blood in your stool. You may also have mild abdominal cramping and bloating. For the first 24 hours after the procedure, do not drive or use machinery, sign important documents, or drink alcohol. Contact your health care provider if you have a lot of blood in your stool, nausea or vomiting, a fever, or increased abdominal pain. This information is not intended to replace advice given to you by your health care provider. Make sure you discuss any questions you have with your health care provider. Document Released: 03/23/2005 Document Revised: 06/01/2018 Document Reviewed: 10/20/2016 [employer] Patient Education 2019 [employer]. Follow Up Care 07/20/2022 13:22:22 With:Jr Akbar Address:Unknown When: Unknown Comments:will call with results [facility]11-28-2022 Hospital Discharge instructions Patient Education 07/20/2022 13:13:03 Obesity, Adult Obesity, Adult Obesity is the condition of having too much total body fat. Being overweight or obese means that your weight is greater than what is considered healthy for your body size. Obesity is determined by a measurement called BMI. BMI is an estimate of body fat and is calculated from height and weight. Foradults, a BMI of 30 or higher is considered obese. Obesity can lead to other health concerns and major illnesses, including: Stroke. Coronary artery disease (CAD). Type 2 diabetes. Some types of cancer, including cancers of the colon, breast, uterus, and gallbladder. Osteoarthritis. High blood pressure (hypertension). High cholesterol. Sleep apnea. Gallbladder stones. Infertility problems. What are the causes? Common causes of this condition include: Eating daily meals that are high in calories, sugar, and fat. Being born with genes that may make you more likely to become obese. Having a medical condition that causes obesity, including: ?Hypothyroidism. ?Polycystic ovarian syndrome (PCOS). ?Binge-eating disorder. ?Wellington syndrome. Taking certain medicines, such as steroids, antidepressants, and seizure medicines. Not being physically active (sedentary lifestyle). Not getting enough sleep. Drinking high amounts of sugar-sweetened beverages, such as soft drinks. What increases the risk? The following factors may make you more likely to develop this condition: Having a family history of obesity. Being a woman of descent. Being a man of descent. Living in an area with limited access to: ?Ya, recreation centers, or sidewalks. ?Healthy food choices, such as grocery stores and [employer] markets. What are the signs or symptoms? The main sign of this condition is having too much body fat. How is this diagnosed? This condition is diagnosed based on: Your BMI. If you are an adult with a BMI of 30 or higher, you are considered obese. Your waist circumference. This measures the distance around your waistline. Your skinfold thickness. Your health care provider may gently pinch a fold of your skin and measureit. You may have other tests to check for underlying conditions. How is this treated? Treatment for this condition often includes changing your lifestyle. Treatment may include some or all of the following: Dietary changes. This may include developing a healthy meal plan. Regular physical activity. This may include activity that causes your heart to beat faster (aerobicexercise) and strength training. Work with your health care provider to design an exercise program that works for you. Medicine to help you lose weight if you are unable to lose 1 pound a week after 6 weeks of healthy eating and more physical activity. Treating conditions that cause the obesity (underlying conditions). Surgery. Surgical options may include gastric banding and gastric bypass. Surgery may be done if: ?Other treatments have not helped to improve your condition. ?You have a BMI of 40 or higher. ?You have life-threatening health problems related to obesity. Follow these instructions at home: Eating and drinking Follow recommendations from your health care provider about what you eat and drink. Your health care provider may advise you to: ?Limit fast food, sweets, and processed snack foods. ?Choose low-fat options, such as low-fat milk instead of whole milk. ?Eat 5 or more servings of fruits or vegetables every day. ?Eat at home more often. This gives you more control over what you eat. ?Choose healthy foods when you eat out. ?Learn to read food labels. This will help you understand how much food is considered 1 serving. ?Learn what a healthy serving size is. ?Keep low-fat snacks available. ?Limit sugary drinks, such as soda, fruit juice, sweetened iced tea, and flavored milk. Drink enough water to keep your urine pale yellow. Do not follow a fad diet. Fad diets can be unhealthy and even dangerous. Physical activity Exercise regularly, as told by your health care provider. ?Most adults should get up to 150 minutes of moderate-intensity exercise every week. ?Ask your health care provider what types of exercise are safe for you and how often you should exercise. Warm up and stretch before being active. Cool down and stretch after being active. Rest between periods of activity. Lifestyle Work with your health care provider and a dietitian to set a weight-loss goal that is healthy and reasonable for you. Limit your screen time. Find ways to reward yourself that do not involve food. Do not drink alcohol if: ?Your health care provider tells you not to drink. ?You are , may be , or are planning to become . If you drink alcohol: ?Limit how much you use to: ?0 1 drink a day for women. ?0 2 drinks a day for men. ?Be aware of how much alcohol is in your drink. In the [place] one drink equals one 12 oz bottle of beer (355 mL), one 5 oz glass of wine (148 mL), or one 1 oz glass of hard liquor (44 mL). General instructions Keep a weight-loss journal to keep track of the food you eat and how much exercise you get. Take hwfx-cju-erzxmlf and prescription medicines only as told by your health care provider. Take vitamins and supplements only as told by your health care provider. Consider joining a support group. Your health care provider may be able to recommend a support group. Keep all follow-up visits as told by your health care provider. This is important. Contact a health care provider if: You are unable to meet your weight loss goal after 6 weeks of dietary and lifestyle changes. Get help right away if you are having: Trouble breathing. Suicidal thoughts or behaviors. Summary Obesity is the condition of having too much total body fat. Being overweight or obese means that your weight is greater than what is considered healthy for your body size. Work with your health care provider and a dietitian to set a weight-loss goal that is healthy and reasonable for you. Exercise regularly, as told by your health care provider. Ask your health care provider what types of exercise are safe for you and how often you should exercise. This information is not intended to replace advice given to you by your health care provider. Make sure you discuss any questions you have with your health care provider. Document Released: 09/16/2005 Document Revised: 04/13/2019 Document Reviewed: 04/13/2019 [employer] Patient Education 2019 [employer]. [facility] General Surgery [place] 05-12-2022 Hospital Discharge instructions Patient Education 01/01/2022 09:41:47 Hemorrhoids Hemorrhoids Hemorrhoids are swollen veins in and around the rectum or anus. There are two types of hemorrhoids: Internal hemorrhoids. These occur in the veins that are just inside the rectum. They may poke through to the outside and become irritated and painful. External hemorrhoids. These occur in the veins that are outside the anus and can be felt as a painful swelling or hard lump near the anus. Most hemorrhoids do not cause serious problems, and they can be managed with home treatments such as diet and lifestyle changes. If home treatments do not help the symptoms, procedures can be done toshrink or remove the hemorrhoids. What are the causes? This condition is caused by increased pressure in the anal area. This pressure may result from various things, including: Constipation. Straining to have a bowel movement. Diarrhea. . Obesity. Sitting for long periods of time. Heavy lifting or other activity that causes you to strain. Anal sex. Riding a bike for a long period of time. What are the signs or symptoms? Symptoms of this condition include: Pain. Anal itching or irritation. Rectal bleeding. Leakage of stool (feces). Anal swelling. One or more lumps around the anus. How is this diagnosed? This condition can often be diagnosed through a visual exam. Other exams or tests may also be done,such as: An exam that involves feeling the rectal area with a gloved hand (digital rectal exam). An exam of the anal canal that is done using a small tube (anoscope). A blood test, if you have lost a significant amount of blood. A test to look inside the colon using a flexible tube with a camera on the end (sigmoidoscopy or colonoscopy). How is this treated? This condition can usually be treated at home. However, various procedures may be done if dietary changes, lifestyle changes, and other home treatments do not help your symptoms. These procedures canhelp make the hemorrhoids smaller or remove them completely. Some of these procedures involve surgery, and others do not. Common procedures include: Rubber band ligation. Rubber bands are placed at the base of the hemorrhoids to cut off their bloodsupply. Sclerotherapy. Medicine is injected into the hemorrhoids to shrink them. Infrared coagulation. A type of light energy is used to get rid of the hemorrhoids. Hemorrhoidectomy surgery. The hemorrhoids are surgically removed, and the veins that supply them are tied off. Stapled hemorrhoidopexy surgery. The surgeon ann the base of the hemorrhoid to the rectal wall. Follow these instructions at home: Eating and drinking Eat foods that have a lot of fiber in them, such as whole grains, beans, nuts, fruits, and vegetables. Ask your health care provider about taking products that have added fiber (fiber supplements). Reduce the amount of fat in your diet. You can do this by eating low-fat dairy products, eating less red meat, and avoiding processed foods. Drink enough fluid to keep your urine pale yellow. Managing pain and swelling Take warm sitz baths for 20 minutes, 3 4 times a day to ease pain and discomfort. You may do this in a bathtub or using a portable sitz bath that fits over the toilet. If directed, apply ice to the affected area. Using ice packs between sitz baths may be helpful. ?Put ice in a plastic bag. ?Place a towel between your skin and the bag. ?Leave the ice on for 20 minutes, 2 3 times a day. General instructions Take qgsr-ean-xberqgo and prescription medicines only as told by your health care provider. Use medicated creams or suppositories as told. Get regular exercise. Ask your health care provider how much and what kind of exercise is best for you. In general, you should do moderate exercise for at least 30 minutes on most days of the week (150 minutes each week). This can include activities such as walking, biking, or yoga. Go to the bathroom when you have the urge to have a bowel movement. Do not wait. Avoid straining to have bowel movements. Keep the anal area dry and clean. Use wet toilet paper or moist towelettes after a bowel movement. Do not sit on the toilet for long periods of time. This increases blood pooling and pain. Keep all follow-up visits as told by your health care provider. This is important. Contact a health care provider if you have: Increasing pain and swelling that are not controlled by treatment or medicine. Difficulty having a bowel movement, or you are unable to have a bowel movement. Pain or inflammation outside the area of the hemorrhoids. Get help right away if you have: Uncontrolled bleeding from your rectum. Summary Hemorrhoids are swollen veins in and around the rectum or anus. Most hemorrhoids can be managed with home treatments such as diet and lifestyle changes. Taking warm sitz baths can help ease pain and discomfort. In severe cases, procedures or surgery can be done to shrink or remove the hemorrhoids. This information is not intended to replace advice given to you by your health care provider. Make sure you discuss any questions you have with your health care provider. Document Released: 08/06/2001 Document Revised: 01/05/2020 Document Reviewed: 12/29/2018 [employer] Patient Education 2020 [employer]. 01/01/2022 09:41:43 Dyslipidemia Dyslipidemia Dyslipidemia is an imbalance of waxy, fat-like substances (lipids) in the blood. The body needs lipids in small amounts. Dyslipidemia often involves a high level of cholesterol or triglycerides, which are types of lipids. Common forms of dyslipidemia include: High levels of LDL cholesterol. LDL is the type of cholesterol that causes fatty deposits (plaques)to build up in the blood vessels that carry blood away from your heart (arteries). Low levels of HDL cholesterol. HDL cholesterol is the type of cholesterol that protects against heart disease. High levels of HDL remove the LDL buildup from arteries. High levels of triglycerides. Triglycerides are a fatty substance in the blood that is linked to a buildup of plaques in the arteries. What are the causes? Primary dyslipidemia is caused by changes (mutations) in genes that are passed down through families (inherited). These mutations cause several types of dyslipidemia. Secondary dyslipidemia is caused by lifestyle choices and diseases that lead to dyslipidemia, such as: Eating a diet that is high in animal fat. Not getting enough exercise. Having diabetes, kidney disease, liver disease, or thyroid disease. Drinking large amounts of alcohol. Using certain medicines. What increases the risk? You are more likely to develop this condition if you are an older man or if you are a woman who hasgone through menopause. Other risk factors include: Having a family history of dyslipidemia. Taking certain medicines, including control pills, steroids, some diuretics, and beta-blockers. Smoking cigarettes. Eating a high-fat diet. Having certain medical conditions such as diabetes, polycystic ovary syndrome (PCOS), kidney disease, liver disease, or hypothyroidism. Not exercising regularly. Being overweight or obese with too much belly fat. What are the signs or symptoms? In most cases, dyslipidemia does not usually cause any symptoms. In severe cases, very high lipid levels can cause: Fatty bumps under the skin (xanthomas). White or thompson ring around the black center (pupil) of the eye. Very high triglyceride levels can cause inflammation of the pancreas (pancreatitis). How is this diagnosed? Your health care provider may diagnose dyslipidemia based on a routine blood test (fasting blood test). Because most people do not have symptoms of the condition, this blood testing (lipid profile) is done on adults age 20 and older and is repeated every 5 years. This test checks: Total cholesterol. This measures the total amount of cholesterol in your blood, including LDL cholesterol, HDL cholesterol, and triglycerides. A healthy number is below 200. LDL cholesterol. The target number for LDL cholesterol is different for each person, depending on individual risk factors. Ask your health care provider what your LDL cholesterol should be. HDL cholesterol. An HDL level of 60 or higher is best because it helps to protect against heart disease. A number below 40 for men or below 50 for women increases the risk for heart disease. Triglycerides. A healthy triglyceride number is below 150. If your lipid profile is abnormal, your health care provider may do other blood tests. How is this treated? Treatment depends on the type of dyslipidemia that you have and your other risk factors for heart disease and stroke. Your health care provider will have a target range for your lipid levels based onthis information. For many people, this condition may be treated by lifestyle changes, such as diet and exercise. Your health care provider may recommend that you: Get regular exercise. Make changes to your diet. Quit smoking if you smoke. If diet changes and exercise do not help you reach your goals, your health care provider may also prescribe medicine to lower lipids. The most commonly prescribed type of medicine lowers your LDL cholesterol (statin drug). If you have a high triglyceride level, your provider may prescribe another type of drug (fibrate) or an omega-3 fish oil supplement, or both. Follow these instructions at home: Eating and drinking Follow instructions from your health care provider or dietitian about eating or drinking restrictions. Eat a healthy diet as told by your health care provider. This can help you reach and maintain a healthy weight, lower your LDL cholesterol, and raise your HDL cholesterol. This may include: ?Limiting your calories, if you are overweight. ?Eating more fruits, vegetables, whole grains, fish, and lean meats. ?Limiting saturated fat, trans fat, and cholesterol. If you drink alcohol: ?Limit how much you use. ?Be aware of how much alcohol is in your drink. In the [place] one drink equals one 12 oz bottle of beer (355 mL), one 5 oz glass of wine (148 mL), or one 1 oz glass of hard liquor (44 mL). Do not drink alcohol if: ?Your health care provider tells you not to drink. ?You are , may be , or are planning to become . Activity Get regular exercise. Start an exercise and strength training program as told by your health care provider. Ask your health care provider what activities are safe for you. Your health care provider may recommend: ?30 minutes of aerobic activity 4 6 days a week. Brisk walking is an example of aerobic activity. ?Strength training 2 days a week. General instructions Do not use any products that contain nicotine or tobacco, such as cigarettes, e- cigarettes, and chewing tobacco. If you need help quitting, ask your health care provider. Take ziwo-hbe-udtugnb and prescription medicines only as told by your health care provider. This includes supplements. Keep all follow-up visits as told by your health care provider. Contact a health care provider if: You are: ?Having trouble sticking to your exercise or diet plan. ?Struggling to quit smoking or control your use of alcohol. Summary Dyslipidemia often involves a high level of cholesterol or triglycerides, which are types of lipids. Treatment depends on the type of dyslipidemia that you have and your other risk factors for heart disease and stroke. For many people, treatment starts with lifestyle changes, such as diet and exercise. Your health care provider may prescribe medicine to lower lipids. This information is not intended to replace advice given to you by your health care provider. Make sure you discuss any questions you have with your health care provider. Document Released: 08/14/2014 Document Revised: 04/03/2019 Document Reviewed: 03/10/2019 [employer] Patient Education 2020 [employer]. 01/01/2022 09:41:41 DASH Eating Plan DASH Eating Plan DASH stands for Dietary Approaches to Stop Hypertension. The DASH eating plan is a healthy eatingplan that has been shown to reduce high blood pressure (hypertension). It may also reduce your riskfor type 2 diabetes, heart disease, and stroke. The DASH eating plan may also help with weight loss. What are tips for following this plan? General guidelines Avoid eating more than 2,300 mg (milligrams) of salt (sodium) a day. If you have hypertension, you may need to reduce your sodium intake to 1,500 mg a day. Limit alcohol intake to no more than 1 drink a day for non women and 2 drinks a day for men. One drink equals 12 oz of beer, 5 oz of wine, or 1 oz of hard liquor. Work with your health care provider to maintain a healthy body weight or to lose weight. Ask what an ideal weight is for you. Get at least 30 minutes of exercise that causes your heart to beat faster (aerobic exercise) most days of the week. Activities may include walking, swimming, or biking. Work with your health care provider or diet and dairy nutrition specialist (dietitian) to adjust your eating plan to your individual calorie needs. Reading food labels Check food labels for the amount of sodium per serving. Choose foods with less than 5 percent of the Daily Value of sodium. Generally, foods with less than 300 mg of sodium per serving fit into this eating plan. To find whole grains, look for the word whole as the first word in the ingredient list. Shopping Buy products labeled as low-sodium or no salt added. Buy fresh foods. Avoid canned foods and premade or frozen meals. Cooking Avoid adding salt when cooking. Use salt-free seasonings or herbs instead of table salt or sea salt. Check with your health care provider or pharmacist before using salt substitutes. Do not noble foods. Cook foods using healthy methods such as baking, boiling, grilling, and broiling instead. Cook with heart-healthy oils, such as olive, canola, soybean, or sunflower oil. Meal planning Eat a balanced diet that includes: ?5 or more servings of fruits and vegetables each day. At each meal, try to fill half of your platewith fruits and vegetables. ?Up to 6 8 servings of whole grains each day. ?Less than 6 oz of lean meat, poultry, or fish each day. A 3-oz serving of meat is about the same size as a deck of cards. One egg equals 1 oz. ?2 servings of low-fat dairy each day. ?A serving of nuts, seeds, or beans 5 times each week. ?Heart-healthy fats. Healthy fats called Fisher-3 fatty acids are found in foods such as flaxseeds and coldwater fish, like sardines, salmon, and mackerel. Limit how much you eat of the following: ?Canned or prepackaged foods. ?Food that is high in trans fat, such as fried foods. ?Food that is high in saturated fat, such as fatty meat. ?Sweets, desserts, sugary drinks, and other foods with added sugar. ?Full-fat dairy products. Do not salt foods before eating. Try to eat at least 2 vegetarian meals each week. Eat more home-cooked food and less restaurant, buffet, and fast food. When eating at a restaurant, ask that your food be prepared with less salt or no salt, if possible. What foods are recommended? The items listed may not be a complete list. Talk with your dietitian about what dietary choices are best for you. Grains Whole-grain or whole-wheat bread. Whole-grain or whole-wheat pasta. Brown rice. Oatmeal. Quinoa. Bulgur. Whole-grain and low-sodium cereals. Leighann bread. Low- fat, low-sodium crackers. Whole-wheat flour tortillas. Vegetables Fresh or frozen vegetables (raw, steamed, roasted, or grilled). Low-sodium or reduced-sodium tomatoand vegetable juice. Low-sodium or reduced-sodium tomato sauce and tomato paste. Low-sodium or reduced-sodium canned vegetables. Fruits All fresh, dried, or frozen fruit. Canned fruit in natural juice (without added sugar). Meat and other protein foods Skinless chicken or turkey. Ground chicken or turkey. Pork with fat trimmed off. Fish and seafood. Egg whites. Dried beans, peas, or lentils. Unsalted nuts, nut butters, and seeds. Unsalted canned beans. Lean cuts of beef with fat trimmed off. Low-sodium, lean deli meat. Dairy Low-fat (1%) or fat-free (skim) milk. Fat-free, low-fat, or reduced-fat cheeses. Nonfat, low-sodiumricotta or cottage cheese. Low-fat or nonfat yogurt. Low-fat, low-sodium cheese. Fats and oils Soft margarine without trans fats. Vegetable oil. Low-fat, reduced-fat, or light mayonnaise and salad dressings (reduced-sodium). Canola, safflower, olive, soybean, and sunflower oils. Avocado. Seasoning and other foods Herbs. Spices. Seasoning mixes without salt. Unsalted popcorn and pretzels. Fat- free sweets. What foods are not recommended? The items listed may not be a complete list. Talk with your dietitian about what dietary choices are best for you. Grains Baked goods made with fat, such as croissants, muffins, or some breads. Dry pasta or rice meal packs. Vegetables Creamed or fried vegetables. Vegetables in a cheese sauce. Regular canned vegetables (not low-sodium or reduced-sodium). Regular canned tomato sauce and paste (not low-sodium or reduced-sodium). Regular tomato and vegetable juice (not low-sodium or reduced-sodium). Pickles. Olives. Fruits Canned fruit in a light or heavy syrup. Fried fruit. Fruit in cream or butter sauce. Meat and other protein foods Fatty cuts of meat. Ribs. Fried meat. Harper. Sausage. Bologna and other processed lunch meats. Salami. Fatback. Hotdogs. Bratwurst. Salted nuts and seeds. Canned beans with added salt. Canned or smoked fish. Whole eggs or egg yolks. Chicken or turkey with skin. Dairy Whole or 2% milk, cream, and [id number]. Whole or full-fat cream cheese. Whole-fat or sweetened yogurt. Full-fat cheese. Nondairy creamers. Whipped toppings. Processed cheese and cheese spreads. Fats and oils Butter. Stick margarine. Lard. Shortening. Ghee. Harper fat. Tropical oils, such as coconut, palm kernel, or palm oil. Seasoning and other foods Salted popcorn and pretzels. Onion salt, garlic salt, seasoned salt, table salt, and sea salt. Worcestershire sauce. Tartar sauce. Barbecue sauce. Teriyaki sauce. Soy sauce, including reduced-sodium.Steak sauce. Canned and packaged gravies. Fish sauce. Oyster sauce. Cocktail sauce. Horseradish that you find on the shelf. Ketchup. Mustard. Meat flavorings and tenderizers. Bouillon cubes. Hot sauce and Tabasco sauce. Premade or packaged marinades. Premade or packaged taco seasonings. Relishes. Regular salad dressings. Where to find more information: National Heart, Lung, and Blood [place]: www.nhlbi.nih.gov [place] [employer]: www.heart.org Summary The DASH eating plan is a healthy eating plan that has been shown to reduce high blood pressure (hypertension). It may also reduce your risk for type 2 diabetes, heart disease, and stroke. With the DASH eating plan, you should limit salt (sodium) intake to 2,300 mg a day. If you have hypertension, you may need to reduce your sodium intake to 1,500 mg a day. When on the DASH eating plan, aim to eat more fresh fruits and vegetables, whole grains, lean proteins, low-fat dairy, and heart-healthy fats. Work with your health care provider or diet and dairy nutrition specialist (dietitian) to adjust your eating plan to your individual calorie needs. This information is not intended to replace advice given to you by your health care provider. Make sure you discuss any questions you have with your health care provider. Document Released: 07/28/2012 Document Revised: 07/22/2018 Document Reviewed: 08/02/2017 [employer] Patient Education 2020 [employer]. 01/01/2022 09:41:39 Vitamin D Deficiency Vitamin D Deficiency Vitamin D deficiency is when your body does not have enough vitamin D. Vitamin D is important to your body for many reasons: It helps the body absorb two important minerals calcium and phosphorus. It plays a role in bone health. It may help to prevent some diseases, such as diabetes and multiple sclerosis. It plays a role in muscle function, including heart function. If vitamin D deficiency is severe, it can cause a condition in which your bones become soft. In adults, this condition is called osteomalacia. In children, this condition is called rickets. What are the causes? This condition may be caused by: Not eating enough foods that contain vitamin D. Not getting enough natural sun exposure. Having certain digestive system diseases that make it difficult for your body to absorb vitamin D. These diseases include Crohn's disease, chronic pancreatitis, and cystic fibrosis. Having a surgery in which a part of the stomach or a part of the small intestine is removed. Having chronic kidney disease or liver disease. What increases the risk? You are more likely to develop this condition if you: Are older. Do not spend much time outdoors. Live in a long-term care facility. Have had broken bones. Have weak or thin bones (osteoporosis). Have a disease or condition that changes how the body absorbs vitamin D. Have dark skin. Take certain medicines, such as steroid medicines or certain seizure medicines. Are overweight or obese. What are the signs or symptoms? In mild cases of vitamin D deficiency, there may not be any symptoms. If the condition is severe, symptoms may include: Bone pain. Muscle pain. Falling often. Broken bones caused by a minor injury. How is this diagnosed? This condition may be diagnosed with blood tests. Imaging tests such as X-rays may also be done to look for changes in the bone. How is this treated? Treatment for this condition may depend on what caused the condition. Treatment options include: Taking vitamin D supplements. Your health care provider will suggest what dose is best for you. Taking a calcium supplement. Your health care provider will suggest what dose is best for you. Follow these instructions at home: Eating and drinking Eat foods that contain vitamin D. Choices include: ?Fortified dairy products, cereals, or juices. Fortified means that vitamin D has been added to thefood. Check the label on the package to see if the food is fortified. ?Fatty fish, such as salmon or trout. ?Eggs. ?Oysters. ?Mushrooms. The items listed above may not be a complete list of recommended foods and beverages. Contact a dietitian for more information. General instructions Take medicines and supplements only as told by your health care provider. Get regular, safe exposure to natural sunlight. Do not use a tanning bed. Maintain a healthy weight. Lose weight if needed. Keep all follow-up visits as told by your health care provider. This is important. How is this prevented? You can get vitamin D by: Eating foods that naturally contain vitamin D. Eating or drinking products that have been fortified with vitamin D, such as cereals, juices, and dairy products (including milk). Taking a vitamin D supplement or a multivitamin supplement that contains vitamin D. Being in the sun. Your body naturally makes vitamin D when your skin is exposed to sunlight. Your body changes the sunlight into a form of the vitamin that it can use. Contact a health care provider if: Your symptoms do not go away. You feel nauseous or you vomit. You have fewer bowel movements than usual or are constipated. Summary Vitamin D deficiency is when your body does not have enough vitamin D. Vitamin D is important to your body for good bone health and muscle function, and it may help prevent some diseases. Vitamin D deficiency is primarily treated through supplementation. Your health care provider will suggest what dose is best for you. You can get vitamin D by eating foods that contain vitamin D, by being in the sun, and by taking a vitamin D supplement or a multivitamin supplement that contains vitamin D. This information is not intended to replace advice given to you by your health care provider. Make sure you discuss any questions you have with your health care provider. Document Released: 10/31/2012 Document Revised: 04/17/2019 Document Reviewed: 04/17/2019 [employer] Patient Education 2020 [employer] Follow Up Care 10/02/2021 11:52:41 With:Anna Marie Liu CNP Address: When:6 months [facility] Primary Care Evaluation + Plan note Future Appointments Appointment Date:01/01/2022 09:00:00 AM Scheduled Provider:Anna Marie Liu CNP Location:[facility] Appointment Type:FM Open Future Scheduled Tests Laboratory* PSA Screen, Total 10/02/21 * Vitamin D 25 Hydroxy 10/02/21 * CBC w/ Auto Diff 10/02/21 * Comprehensive Metabolic Panel 10/02/21 * Lipid Panel 10/02/21 [facility] Primary Care Evaluation + Plan note Future Appointments Appointment Date:01/01/2022 09:00:00 AM Scheduled Provider:Anna Marie Liu CNP Location:[facility] Future Appointments Appointment Date:06/24/2022 09:00:00 AM Scheduled Provider:Anna Marie Liu CNP Location:[facility] Appointment Type:FM Open Future Scheduled Tests Laboratory* Vitamin D 25 Hydroxy 01/01/22 * Comprehensive Metabolic Panel 01/01/22 * Lipid Panel 01/01/22 [facility] Primary Care evaluation + Plan note Future Appointments Appointment Date:12/23/2022 08:40:00 AM Scheduled Provider:Anna Marie Liu CNP Location:[facility] Appointment Type:FM Open Future Scheduled Tests Laboratory* Vitamin D 25 Hydroxy 01/01/22 * CBC w/ Auto Diff 06/24/22 * Comprehensive Metabolic Panel 01/01/22 * Comprehensive Metabolic Panel 06/24/22 * Lipid Panel 01/01/22 * Lipid Panel 06/24/22 [facility] Primary Care evaluation + Plan note Future Appointments Appointment Date:08/10/2022 11:00:00 AM Scheduled Provider: Location:[facility] Appointment Type:Surgery FT Appointment Date:12/23/2022 08:40:00 AM Scheduled Provider:Anna Marie Liu CNP Location:[facility] Appointment Type:FM Open Future Scheduled Tests Laboratory* Vitamin D 25 Hydroxy 01/01/22 * CBC w/ Auto Diff 06/24/22 * Comprehensive Metabolic Panel 01/01/22 * Comprehensive Metabolic Panel 06/24/22 * Lipid Panel 01/01/22 * Lipid Panel 06/24/22 [facility] General Surgery [place] Evaluation + Plan note Future Appointments Appointment Date:02/03/2023 08:30:00 AM Scheduled Provider: Location:.[facility] Appointment Type:PUL Pulmonary Function Test () Appointment Date:02/03/2023 09:30:00 AM Scheduled Provider: Location:.XRAY Appointment Type:XR Chest () Appointment Date:03/17/2023 11:40:00 AM Scheduled Provider:Jr CAMPOS MD Location:[facility] Appointment Type:FM Open Future Scheduled Tests Laboratory* CBC w/ Auto Diff 06/24/22 * Comprehensive Metabolic Panel 06/24/22 * Lipid [facility] Future Appointments Appointment Date:04/20/2023 08:40:00 AM Scheduled Provider:Jr CAMPOS MD Location:[facility] Appointment Type:FM Open Future Scheduled Tests Laboratory* Basic Metabolic Panel 03/17/23 * CBC w/ Auto Diff 06/24/22 * Comprehensive Metabolic Panel 06/24/22 * Lipid Panel 06/24/22 [facility] Primary Care Evaluation + Plan note Future Appointments Appointment Date:04/20/2023 08:40:00 AM Scheduled Provider:Jr CAMPOS MD Location:[facility] Appointment Type:FM Open Future Scheduled Tests Laboratory* CBC w/ Auto Diff 06/24/22 * Comprehensive Metabolic Panel 06/24/22 * Lipid Panel 06/24/[facility] Future Appointments Appointment Date:10/18/2023 09:00:00 AM Scheduled Provider:Jr CAMPOS MD Location:[facility] Appointment Type:FM Open Future Scheduled Tests Laboratory* HgbA1c 04/20/23 * PSA Screen, Total 04/20/23 * Vitamin D 25 Hydroxy 04/20/23 * CBC w/ Auto Diff 04/20/23 * CBC w/ Auto Diff 06/24/22 * Comprehensive Metabolic Panel 04/20/23 * Comprehensive Metabolic Panel 06/24/22 * Lipid Panel 04/20/23 * Lipid Panel 06/24/22 [facility] Primary Care Hospital course Narrative No data available for this section [facility] Primary Care Hospital Discharge instructions No data available for this section [facility] Primary Care Progress note No data available for this section [facility] Primary Care Summary Purpose Family History No Family History Records FoundNo Family History Records FoundNo Family History Records Found Advance Directives No Advanced Directives Records FoundNo Advanced Directives Records FoundNo Advanced Directives Records Found Additional Source Comments Patient Care team informatio n (unrecognized section and content) Personnel Name: Anna Marie Liu CNP Address: Address: [address] [place] [address] [place] Name: Elpidio Mullins Personnel Name: Anna Marie Liu CNP Address: Address: [address] [place] [address] [place] Name: Elpidio Mullins Personnel Name: Anna Marie Liu CNP Address: Address: [address] [place] [address] [place] Name: Elpidio Mullins Personnel Name: Jr CAMPOS MD Address: Address: [place] [address]- Name: Elpidio Mullins Personnel Name: Jr CAMPOS MD Address: Address: [place] [address] [address] [place] [address]- Name: Elpidio Mullins Personnel Name: Jr CAMPOS MD Address: Address: [address] [address] [address] [place], [place] [address] Name: Elpidio Mullins Personnel Name: Jr CAMPOS MD Address: Address: [facility] [address], [address] [place], [address] Name: Elpidio Mullins Personnel Name: Jr CAMPOS MD Address: Address: [facility] [address], [address] [place], [address] Name: Elpidio Mullins (unrecognized sect ion and content) No Status Records FoundNo Status Records FoundNo Status Records Found INFORMATION SOURCE (unrecogn ized section and content) DATE CREATED AUTHOR 05/02/2023 [facility] DATE CREATED AUTHOR AUTHOR'S ORGANIZ ATION 06/05/2023 [facility] DATE CREATED AUTHOR AUTHOR'S ORGANIZ ATION 07/31/2023 [facility] FOR RECORDS PERTAINING TO PATIENTS WHO ARE OR HAVE BEEN ENROLLED IN A CHEMICAL DEPENDENCY/SUBSTANCEABUSE PROGRAM, SOME INFORMATION MAY BE OMITTED. This clinical summary was aggregated from multiple sources. Caution should be exercised in using it in the provision of clinical care. This summary normalizes information from multiple sources, and as a consequence, information in this document may materially change the coding, format and clinical context of patient data. In addition, data may be omitted in some cases. CLINICAL DECISIONS SHOULD BE BASED ON THE PRIMARY CLINICAL RECORDS. [facility] [employer] provides no warranty or guarantee of the accuracy or completeness of information in this document.
[2023-08-26] MEDS: DIAZEPAM 5 MG TABLET PO ×2 (06:48→06:52)
[2023-08-26] MEDS: PHENYLEPHRINE HCL 2.5% OP SOL 40 DROP/2 ML BOTTLE OP ×4 (06:52→07:30)
[2023-08-26] MEDS: TROPICAMIDE 1% OP SOL 300 DROP/15 ML BOTTLE OP ×4 (06:53→07:29)
[2023-08-26] MEDS: CYCLOPENTOLATE HCL 1% OP SOL 40 DROP/2 ML BOTTLE OP ×4 (06:54→07:29)
[2023-08-26] MEDS: OFLOXACIN 0.3% OP SOL 100 DROP/5 ML BOTTLE OP ×4 (07:00→07:28)
[2023-08-26] MEDS: APRACLONIDINE HCL 100 DROP/5 ML BOTTLE OP (08:19)
[2023-08-26] MEDS: LIDOCAINE 2% JELLY 10 ML TOPICAL (08:20)
[2023-08-26] MEDS: HYALURONATE SODIUM 16 MG/ML SYRINGE OP (08:20)
[2023-08-26] MEDS: PHENYLEPHRINE/KETOROLAC 1-0.3% ML VIAL 4 ML IRR (08:21)
[2023-08-26] MEDS: LIDOCAINE HCL 1% PF 20 MG/2 ML VIAL INJ (08:21)
[2023-08-26] MEDS: BETADINE POVIDONE-IODINE 5% OP SOL 30 ML BOTTLE OP (08:22)
[2023-08-26] MEDS: PREDNISOLONE ACETATE OP 1% SUSP 100 DROPS/5 ML 1 DROP OP (08:22)
[2023-08-26] MEDS: TETRACAINE HCL 0.5% OP SOL 80 DROP/4 ML BOTTLE OP (08:23)
[2023-08-26] MEDS: PROPARACAINE HCL 0.5% 300 DROP/15 ML BOTTLE OP (08:23)
[2023-08-26] MEDS: CEFUROXIME SODIUM 750 MG, 0.9 % SODIUM CHLORIDE 16.3 ML OP (08:24)
[2023-08-26 08:35] VITALS: BP 121/85; BP 135/80; PULSE 64; PULSE 65; RESP 16; O2SAT 97; O2SAT 99
== END 2023-08-26 08:40 | disposition home or self-care (01) ==
LOC: SURGOUT 06:34
PROVIDERS: Visit Provider Ophthalmology
PROC: (CPT 66984; principal; 2023-08-26 07:50)
DX: H25.11 Age-related nuclear cataract, right eye (principal); E78.00 Pure hypercholesterolemia, unspecified; I10 Essential (primary) hypertension; Z79.899 Other long term (current) drug therapy
CPT/HCPCS: 66984; J0697; V2630

== ENCOUNTER 2023-09-21 09:42 | Outpatient (OUT) | payer SELFPAY ==
--- OUTSIDE RECORDS SUMMARY | 2023-09-21 09:47 | XMS_ITS | CCD ---
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 Role Phone Anna Marie Liu Primary Care Physician Elpidio Mullins Unavailable Jr Ron Primary Care Physician [phone] Jr Akbar Attending Unavailable NEAL Liu Referring Jr Cuello Referring Unavailable Jr Akbar Admitting Unavailable Jr Akbar Attending Unavailable Jr [...] Jr CAMPOS Attending Unavailable NEAL Liu Attending UnavailrJ Couch Attending Unavailable NEAL Liu Attending UnavailSIMRAN [...] Daily, # 90 tab(s), Refills(s) 3, Pharmacy: [facility]/pharmacy #[id number], 180, cm, 01/13/23 8:45:00 EDT, Height/Length Dosing, 97.1, kg, 01/13/23 8:45:00 EDT, Weight Dosing Start Date: 01/13/23 Status: Ordered Start: 06-27-2021 [facility] amLODIPine 10 mg Tab 10 [...] fluids, # 30 cap(s), Refills(s) 5, Pharmacy: [facility]/pharmacy #[id number], 180, cm, 08/10/22 10:10:00 EST, Height/Length Dosing, 99, kg, 08/10/22 10:10:00 EST, Weight Dosing Start Date: 12/21/22 Status: Ordered Start: 04-15-2022 take [address] [facility] once daily doxycycline hyclate 100 mg Cap 100 mg = 1 cap(s), Oral, Daily, with fluids, # 30 cap(s), Refills(s) 5, Pharmacy: [facility]/pharmacy #[id number], 180, cm, 01/01/22 9:11:00 EDT, Height/Length Dosing, 97.4, kg, 01/01/22 9:11:00 EDT, Weight Dosing Start Date: 04/15/22 Status: Ordered Start: 01-01-2022 End: 03-02-2022 take 1 capsule by mouth once daily doxycycline hyclate 100 mg Cap 100 mg = 1 cap(s), Oral, Daily, with fluids, X 30 day(s), # 30 cap(s), Refills(s) 1, [facility], cm, 01/01/22 9:11:00 EDT, [...] symptoms, # 30 tab(s), Refills(s) 5, [facility] 180, cm, 04/20/23 8:55:00 EDT, [...] q12hr, # 20 tab(s), Refills(s) 0, Pharmacy: [facility], 180, cm, 08/21/21 23:20:00 EST, Height/Length Dosing, 93.8, kg, 08/21/21 23:20:00 EST, Weight Dosing Start Date: 08/23/21 Status: Ordered hydrocortisone acetate 25 mg rectal suppository (5 sources) Corticosteroid Start: 03-23-2023 take 25 mg rectal route twice daily as needed Anusol-HC 25 mg rectal suppository 25 mg = 1 supp, Rectal, BID, PRN hemorrhoids, # 12 supp, Refills(s) 1, Pharmacy: [facility]/pharmacy #[id number], 180, cm, 03/17/23 11:50:00 EDT, Height/Length Dosing, 98.5, kg, 03/17/23 11:50:00 EDT, Weight Dosing Start Date: 03/23/23 Status: Ordered Start: 01-13-2023 take 25 mg rectal ro beaver twice daily as needed Anusol-HC 25 mg rectal suppository 25 mg = 1 supp, Rectal, BID, PRN hemorrhoids, # 12 supp, Refills(s) 1, Pharmacy: [facility]/pharmacy #6173, 180, cm, 01/13/23 8:45:00 EDT, Height/Length Dosing, 97.1, kg, 01/13/23 8:45:00 EDT, Weight Dosing Start Date: 01/13/23 Status: Ordered losartan potassium 100 mg oral tablet (4 sources) Angiotensin 2 Receptor Adam Start: 03-17-2023 take 1 tablet by mouth once daily losartan 100 mg Tab 100 mg = 1 tab(s), Oral, Daily, # 30 tab(s), Refills(s) 6, Pharmacy: [facility]/pharmacy #6173, 180, cm, 03/17/23 11:50:00 EDT, Height/Length Dosing, 98.5, kg, 03/17/23 11:50:00 EDT, Weight Dosing Start Date: 03/17/23 Status: Ordered metroNIDAZOLE 0.0075 mg/mg topical gel (3 sources) Nitroimidazole Antimicrobial Start: 06-24-2022 metronidazole topical 0.75% gel 1 emily, Topical, BID, 45 gram, Refill(s) 1, apply a thin film to affected area after washing, morning and night, [facility]pharmacy #[id number], 180, cm, 06/24/22 9:05:00 EDT, Height/Length Dosing, 98.3, kg, 06/24/22 9:05:00 EDT, Weight Dosing Start Date: 06/24/22 Status: Ordered Multi Vitamin+ (2 sources) Start: 03-28-2019 Multi Vitamin+ Refill(s) 0 Start Date: 03/28/19 Status: Ordered polyethylene glycol 3350 922176 mg / potassium chloride 1480 mg / sodium bicarbonate 5720 mg / sodium chloride 28369 mg powder for oral solution (1 source) Osmotic Laxative Start: 07-20-2022 take 1 dose by mouth once NuLYTELY [place] oral powder for reconstitution See Instructions, 1 EA, Refill(s) 0, Per physcisians instructions prior to colonoscopy, [facility]/pharmacy #[id number], 180, cm, 07/20/22 13:04:00 EST, Height/Length Dosing, 99, kg, 07/20/22 13:04:00 EST, Weight Dosing Start Date: 07/20/22 Status: Ordered Preparation H Cooling Gel 0.25% rectal (4 sources) Start: 01-01-2022 Preparation H Cooling Gel 0.25% rectal 1 emily, Topical, BID for itching, 54 gram, Refill(s) 0, [facility]/pharmacy #6173, 180, cm, 01/01/22 9:11:00 EDT, Height/Length Dosing, 97.4, kg, 01/01/22 9:11:00 EDT, Weight Dosing Start Date: 01/01/22 Status: Ordered rosuvastatin calcium 10 mg oral tablet (5 sources) HMG-CoA Reductase Inhibitor Start: 01-13-2023 take 1 tablet by mouth once daily rosuvastatin 10 mg Tab 10 mg = 1 tab(s), Oral, Daily, # 90 tab(s), Refills(s) 3, Pharmacy: [facility]/pharm[facility] #6173, 180, cm, 01/13/23 8:45:00 EDT, Height/Length Dosing, 97.1, kg, 01/13/23 8:45:00 EDT, Weight Dosing Start Date: 01/13/23 Status: Ordered simvastatin 40 mg oral tablet (6 sources) HMG-CoA Reductase Inhibitor Start: 11-27-2021 take 1 tablet by mouth once daily at bedtime simvastatin 40 mg Tab 40 mg = 1 tab(s), Oral, Once a day (at bedtime), # 90 tab(s), Refills(s) 3, Pharmacy: [facility]/pharmacy #6173, 180, cm, 11/03/21 13:55:00 EDT, Height/Length Dosing, 99.1, kg, 11/03/21 13:55:00 EDT, Weight Dosing Start Date: 11/27/21 Status: Ordered Vitamin D 1000 intl units (25 mcg) Tab (5 sources) Start: 01-13-2023 take 1 tablet by mouth once daily Vitamin D 1000 intl units (25 mcg) Tab 25 mcg = 1 tab(s), Oral, Daily, # 100 tab(s), Refills(s) 3, Pharmacy: [facility]/pharmacy #6173, 180, cm, 01/13/23 8:45:00 EDT, Height/Length Dosing, 97.1, kg, 01/13/23 8:45:00 EDT, Weight Dosing Start Date: 01/13/23 Status: Ordered Completed/Discontinued Medications Medication Drug Class(es) Dates Sig (Normalized) Sig (Original) Cholecalciferol (3 sources) Vitamin D Start: 10-02-2021 End: 01-22-2022 cholecalciferol 50,000 intl units oral capsule 50,000 International_Unit = 1 cap(s), Oral, q7day, X 16 week(s), # 16 cap(s), Refills(s) 0, Pharmacy: [facility], 178, cm, 10/02/21 11:35:00 EST, [...] Barros, CHRISSY When: In 6 months Where: [facility] [address], [place] [address]- You Need to Complete the Following CBC [...] symptoms Allergic rhinitis Refills: 5 Pickup at [facility]pharm[facility] #[id number] Unchanged amlodipine (amLODIPine 5 mg Tab) 1 [...] Pharmacy Information [id number]: [address] [place], [place] [id number] [phone] Allergies No Known Allergies Problems Ongoing - [...] What increase (more content not included)... Normal [facility] Family Medicine Office/Clini c Noteon 04-20-2023 Family [...] symptoms, # 30 tab(s), Refills(s) 5, Pharmacy: [facility]/pharmacy #6173, 180, cm, 04/20/23 8:55:00 EDT, [...] MONI COOMBS, CHRISSY Coe In 6 months [facility] [address], [place] [address]- Additional Instructions: Patient Education Hypertension, Adult, Fpmi-pq-Etfk Problem List/Past Medical History Ongoing Allergic rhinitis [...] acel/tetanus adult (more content not included)... Normal [facility] Comment on above: Result Comment: Alo govea [...] Keep all follow-up visits. Medicines ? Take wygr-tyy-kyrpvuf and prescription medicines only as told by [...] For m (more content not included)... Normal [facility] BMPon 04-14-2023 Anion gap [Moles/Vol] 10 mmol/L Normal 6-16 [facility] Comment on above: Performed By: #### 1 [id number], [id number] ####[facility] [address] [place] [address] Calcium [Mass/Vol] 9.0 mg/dL Normal 8.9-11.1 [facility] Comment on above: Performed By: #### 1 [id number], [id number] ####[facility] [address] [place] [address] Chloride [Moles/Vol] 106 mmol/L Normal 101-111 [facility] Comment on above: Performed By: #### 1 [id number], [id number] ####[facility] [address] [place] [address] CO2 [Moles/Vol] 27 mmol/L Normal 21-31 [facility] Comment on above: Performed By: #### 1 [id number], [id number] ####[facility] [address] [place] [address] Creatinine [Mass/Vol] 1.0 mg/dL Normal 0.5-1.3 [facility] Comment on above: Performed By: #### 1 [id number], [id number] ####[facility] [address] [place] [address] Glucose [Mass/Vol] 101 mg/dL Normal 55-199 [facility] Comment on above: Result Comment: If t his glucose result represents a fasting glucose, interpretation should refer to the following reference range: 55-99 mg/dL Performed By: #### 1 [id number], [id number] ####[facility] [address] [place] [address] Potassium [Moles/Vol] 3.9 mmol/L Normal 3.5-5.3 [facility] Comment on above: Performed By: #### 1 4998831, 1487700 ####[facility] [address] [place] [address] Sodium [Moles/Vol] 139 mmol/L Normal 135-145 [facility] Comment on above: Performed By: #### 1 [id number], 5273070 ####[facility] [address] [place] [address] Urea nitrogen [Mass/Vol] 24 mg/dL High 5-21 [facility] Comment on above: Performed By: #### 1 8800084, 7134897 ####[facility] [address] [place] [address] Urea nitrogen/Creatinine [Mass ratio] 24 No Units High 10-20 [facility] Comment on above: Performed By: #### 1 [id number], 5257412 ####[facility] [address] [place] [address] CHEMISTRYOrdered By: SYSTEM SYSTEM on 04-14-2023 Anion gap [Moles/Vol] 10 mmol/L Normal 6 - 16 mEq/L [facility] Calcium [Mass/Vol] 9.0 mg/dL Normal 8.9 - 11. 1 mg/dL [facility] Chloride [Moles/Vol] 106 mmol/L Normal 101 - 1 11 mmol/L [facility] CO2 [Moles/Vol] 27 mmol/L Normal 21 - 31 mmol/L [facility] Creatinine [Mass/Vol] 1.0 mg/dL Normal 0.5 - 1.3 mg/dL [facility] Remisol GFR/1.73 sq M.predicted among non-blacks MDRD (S/P/Bld) [Vol rate/Area] 79 mL/min/1.73 m2 Normal >=59mL/min/1 .73 m2 [facility] Chem S Glucose [Mass/Vol] 101 mg/dL Normal 55 - 199 mg/dL [facility] Remisol Potassium [Moles/Vol] 3.9 mmol/L Normal 3.5 - 5.3 mmol/L [facility] Remisol Sodium [Moles/Vol] 139 mmol/L Normal 135 - 145 mmol/L [facility] Remisol Urea nitrogen [Mass/Vol] 24 mg/dL High 5 - 21 mg/dL [facility] Remisol Urea nitrogen/Creatinine [Mass ratio] 24 mg/mg High 10 - 20 [facility] Remisol Consent for Treatmenton 03-24 Consent for Treatment [id number] .00CD:127 Normal [facility] eGFRon 04-14-2023 GFR/1.73 sq M.predicted among non-blacks MDRD (S/P/Bld) [Vol rate/Area] 79 mL/min/1.73 m2 Normal >=59 [facility] Comment on above: Order Comment: Order added by Discern Expert. Result Comment: Psychiatric Nursing Assistant geri kidney disease could be indicated at eGFR's of less than 60 mL/min/1.73m2. Kidney failure is indicated at less than 15 mL/min/1.73m2. Performed By: #### 1 [id number], [id number] ####[facility] [address] [place] [address] Family Medicine Office/Clini c Noteon 03-17-2023 Family [...] Daily, # 30 tab(s), Refills(s) 6, Pharmacy: [facility]/pharmacy #6173, 180, cm, 03/17/23 11:50:00 EDT, [...] MONI COOMBS, CHRISSY Coe In 1 month [facility] [address] [place] [address]- Additional Instructions: Patient Education Hypertension, Adult, Xvoz-xn-Tyln Problem List/Past Medical History Ongoing COPD mixed [...] to ref (more content not included)... Normal [facility] Comment on above: Result Comment: Elec tronically [...] Keep all follow-up visits. Medicines ? Take uaqd-szw-dnsulgw and prescription medicines only as told by [...] For m (more content not included)... Normal [facility] Pulmonary Function Studieson 02-05-2023 Pulmonary Function Studies [...] Ana Cristina Dorsey M.D. lr Dictated: 02/03/2023 [id number] Transcribed: 02/03/2023 cc:Jr Campos M.D. [facility] Comment on above: Result Comment: Elec tronically Signed By: Willian COOMBS, Ana Cristina Lao\.br\Date and Time Signed: 02/05/23 09:38 EDT Consent for Treatmenton 01-21 Consent for Treatment [id number] .00CD:127 [facility] Pulmonary Function Testson 0 02-03-2023 Pulmonary Function Tests [id number] .00CD:127 [facility] XR Chest 2 Viewson XR Chest [...] in mGy = na DAP = na [facility] Consent for Treatmenton 01-21 Consent for Treatment [id number] .00CD:127 [facility] Family Medicine Office/Clini c Noteon 01-13-2023 [...] Daily, # 90 tab(s), Refills(s) 3, Pharmacy: [facility]/pharmacy #6173, 180, cm, 01/13/23 8:45:00 EDT, Height/Length Dosing, 97.1, kg, 01/13/23 8:45:00 EDT, Weight Dosing 2. Hyperlipidemia (E78.5: Hyperlipidemia, unspecified) change to rosuvastatin due to drug interactions of simvastatin lab is ok Ordered: rosuvastatin, 10 mg = 1 tab(s), Oral, Daily, # 90 tab(s), Refills(s) 3, Pharmacy: [facility]/pharmacy #6173, 180, cm, 01/13/23 8:45:00 EDT, Height/Length Dosing, 97.1, kg, 01/13/23 8:45:00 EDT, Weight Dosing 3. Fasting hyperglycemia (R73.01: Impaired fasting glucose) keep on diet 4. Vitamin D deficiency (E55.9: Vitamin D deficiency, unspecified) lab is low will start D3 1000 Ordered: cholecalciferol, 25 mcg = 1 tab(s), Oral, Daily, # 100 tab(s), Refills(s) 3, Pharmacy: [facility]/pharmacy #6173, 180, cm, 01/13/23 8:45:00 EDT, [...] hemorrhoids, # 12 supp, Refills(s) 1, Pharmacy: [facility]/pharmacy #6173, 180, cm, 01/13/23 8:45:00 EDT, Height/Length Dosing, 97.1, kg, 01/13/23 8:45:00 EDT, Weight Dosing Follow-up With When Contact Information CAMPOS , CHRISSY Coe In 2 months [facility] [address], [place] [address]- Additional Instructions: Patient Education Hypertension, Adult, Nywi-nr-Pjvo Problem List/Past Medical History Ongoing Dyspnea Fasting [...] Allergies S (more content not included)... Normal [facility] Comment on above: Result Comment: Elec tronically [...] Keep all follow-up visits. Medicines ? Take jmzy-qua-kmamnhk and prescription medicines only as told by [...] For m (more content not included)... Normal [facility] Auto Diffon 01-08-2023 Basophils/100 WBC (Bld) 0.6 % Normal 0.0-2.0 [facility] Comment on above: Order Comment: Order Added by Discern Expert. Performed By: #### 2 174412, 3633654, 7568221, 663900780, 09701819, 4546999, 853309108 ####[facility] [address] [place] [address] Basophils/Leukocytes Auto (Bld) [Pure # fraction] 0.0 E9/L Normal 0.0-0.2 [facility] Comment on above: Order Comment: Order Added by Discern Expert. Performed By: #### 2 134689, 8214688, 9141352, 787384157, 63088356, 8898930, 353759887 ####[address] [address] Eosinophils/100 WBC (Bld) 5.0 % Normal 0.0-8.0 [facility] Comment on above: Order Comment: Order Added by Discern Expert. Performed By: #### 2 638341, 2276561, 6867838, 452345798, 28122103, 2965023, 262800563 ####[address] [place] [address] Eosinophils/Leukocyte s Auto (Bld) [Pure # fraction] 0.2 E9/L Normal 0.0-0.5 [facility] Comment on above: Order Comment: Order Added by Discern Expert. Performed By: #### 2 314617, 7881389, 0496223, 787085342, 00974550, 5786242, 763516378 ####[address] [address] Lymphocytes/100 WBC (Bld) 25.5 % Normal 14.0-50.0 [facility] Comment on above: Order Comment: Order Added by Discern Expert. Performed By: #### 2 794162, 9303306, 1544620, 104017634, 16388598, 6749022, 553021636 ####[address] [place] [address] Lymphocytes/Leukocyte s Auto (Bld) [Pure # fraction] 1.2 E9/L Normal 1.0-4.0 [facility] Comment on above: Order Comment: Order Added by Discern Expert. Performed By: #### 2 583233, 2836343, 1653496, 611721705, 70527411, 1008697, 637665551 ####[address] [address] Monocytes/100 WBC (Bld) 11.8 % Normal 4.0-14.0 [facility] Comment on above: Order Comment: Order Added by Discern Expert. Performed By: #### 2 984945, 9889099, 5792115, 373924959, 07317550, 8533254, 465805924 ####[address] [address] Monocytes/Leukocytes Auto (Bld) [Pure # fraction] 0.6 E9/L Normal 0.2-1.0 [facility] Comment on above: Order Comment: Order Added by Discern Expert. Performed By: #### 2 068346, 8761990, 2031476, 998468091, 35192473, 8216249, 094935588 ####[address] [address] Neutrophils/100 WBC (Bld) 57.1 % Normal 36.0-75.0 [facility] Comment on above: Order Comment: Order Added by Discern Expert. Performed By: #### 2 357220, 4394270, 5331024, 991367597, 00657933, 4249465, 205051206 ####[address] [address] Neutrophils/Leukocyte s Auto (Bld) [Pure # fraction] 2.7 E9/L Normal 2.0-7.5 [facility] Comment on above: Order Comment: Order Added by Discern Expert. Performed By: #### 2 004307, 3883450, 0581568, 051935147, 27380899, 8555769, 120037156 ####[facility] [address] [place] [address] CBC w/ Auto Diffon 3 Erythrocyte distribution width (RBC) [Ratio] 13.3 % Normal 10.9-14.2 [facility] Comment on above: Performed By: #### 2 085168, 7660360, 1132332, 656729760, 08329252, 2525385, 988477912 #### [facility] [address] [place] [address] Hematocrit (Bld) [Volume fraction] 48.5 % Normal 37.7-49.0 [facility] Comment on above: Performed By: #### 2 481662, 4882912, 6107626, 553721387, 12453785, 2443165, 496293273 #### [facility] [address] [place] [address] Hemoglobin (Bld) [Mass/Vol] 16.1 g/dL Normal 13.5-17.5 [facility] Comment on above: Performed By: #### 2 072799, 7899340, 6407055, 577755737, 88708355, 9360552, 531845606 #### [facility] [address] [place] [address] MCH (RBC) [Entitic mass] 31.1 pg Normal 27.0-34.0 [facility] Comment on above: Performed By: #### 2 021720, 8007175, 8276574, 313815845, 09418537, 0906465, 620846362 #### [facility] [address] [place] [address] MCHC (RBC) [Mass/Vol] 33.2 g/dL Normal 31.4-36.0 [facility] Comment on above: Performed By: #### 2 250211, 5469321, 2554897, 383698446, 36947540, 9950651, 315757658 #### [facility] [address] [place] [address] MCV (RBC) [Entitic vol] 93.8 fL Normal 80.0-100.0 [facility] Comment on above: Performed By: #### 2 097945, 7231261, 7927931, 397761687, 08145066, 9938840, 694979320 #### [facility] [address] [place] [address] Platelet mean volume (Bld) [Entitic vol] 6.5 fL Normal 6.4-10.8 [facility] Comment on above: Performed By: #### 2 918953, 2999492, 5140914, 297222434, 99340603, 5355108, 562054080 #### [facility] [address] [place] [address] Platelets (Bld) [#/Vol] 209.0 E9/L Normal 150.0-500.0 [facility] Comment on above: Performed By: #### 2 242601, 1808447, 9361077, 775504305, 21247644, 0255687, 843886729 #### [facility] [address] [place] [address] RBC (Bld) [#/Vol] 5.2 E12/L Normal 4.3-5.9 [facility] Comment on above: Performed By: #### 2 066908, 5746325, 2290594, 793291480, 61370848, 9879785, 876642064 #### [facility] [address] [place] [address] WBC corrected for nucl RBC Auto (Bld) [#/Vol] 4.8 E9/L Normal 4.0-11.0 [facility] Comment on above: Performed By: #### 2 062566, 9442437, 7395153, 049416068, 05684716, 7935165, 009351936 #### [facility] [address] [place], [place] [address] [place] [address] CMPon 01-08-2023 Albumin [Mass/Vol] 4.3 g/dL Normal 3.3-5.0 [facility] Comment on above: Performed By: #### 2 144233, 8320180, 9798362, 669831478, 20651988, 0337953, 787496293 ####[facility] [address] [place] [address] Albumin/Globulin (S) [Mass conc ratio] 1.6 Normal 1.1-2.2 [facility] Comment on above: Performed By: #### 2 385760, 1179924, 9078520, 175239323, 76532814, 9257059, 690021570 ####[facility] [address] [place] [address] ALP [Catalytic activity/Vol] 48 Int._Unit/L Normal 21-98 [facility] Comment on above: Performed By: #### 2 842971, 3910230, 9034862, 691298066, 86903958, 3220259, 095084195 ####[facility] [address] [place] [address] ALT No additional P-5'-P [Catalytic activity/Vol] 25 Int._Unit/L Normal 6-46 [facility] Comment on above: Performed By: #### 2 557689, 3983784, 0076238, 173410287, 61914369, 4946792, 985796703 ####[facility] [address] [place] [address] Anion gap [Moles/Vol] 12 mmol/L Normal 6-16 [facility] Comment on above: Performed By: #### 2 642907, 2091984, 9429045, 748031542, 12498823, 4535615, 185228810 ####[facility] [address] [place] [address] AST [Catalytic activity/Vol] 20 Int._Unit/L Normal 5-43 [facility] Comment on above: Performed By: #### 2 086971, 6042878, 0986390, 867236251, 37867206, 3039571, 747751964 ####[facility] [address] [place] [address] Bilirubin [Mass/Vol] 0.8 mg/dL Normal 0.0-1.1 [facility] Comment on above: Performed By: #### 2 803963, 7728051, 6797431, 779117599, 78477017, 5271094, 232414946 ####[facility] [address] [place] [address] Calcium [Mass/Vol] 9.1 mg/dL Normal 8.9-11.1 [facility] Comment on above: Performed By: #### 2 480531, 2595334, 4753876, 488771872, 27686839, 9672838, 358035882 ####[facility] [address] [place] [address] Chloride [Moles/Vol] 107 mmol/L Normal 101-111 [facility] Comment on above: Performed By: #### 2 543950, 2029669, 3100064, 278550735, 67908750, 3620058, 579749880 ####[facility] [address] [place] [address] CO2 [Moles/Vol] 24 mmol/L Normal 21-31 [facility] Comment on above: Performed By: #### 2 992091, 7645050, 8318885, 846461873, 89634856, 6699905, 712003136 ####[facility] [address] [place] [address] Creatinine [Mass/Vol] 1.0 mg/dL Normal 0.5-1.3 [facility] Comment on above: Performed By: #### 2 462072, 2675460, 3188139, 971821306, 75812316, 7068734, 518339748 ####[facility] [address] [place] [address] Globulin (S) [Mass/Vol] 2.7 g/dL Normal 1.4-4.0 [facility] Comment on above: Performed By: #### 2 258146, 0859503, 3003471, 029290017, 28685396, 9803445, 433549293 ####[facility] [address] [place] [address] Glucose [Mass/Vol] 121 mg/dL Normal 55-199 [facility] Comment on above: Result Comment: If t his glucose result represents a fasting glucose, interpretation should refer to the following reference range: 55-99 mg/dL Performed By: #### 2 650299, 6560053, 4630406, 921204935, 95949626, 8926639, 466538629 ####[facility] [address] [place] [address] Potassium [Moles/Vol] 4.1 mmol/L Normal 3.5-5.3 [facility] Comment on above: Performed By: #### 2 841137, 3695441, 8300814, 903658594, 38320055, 6365953, 894929668 ####[facility] [address] [place] [address] Protein [Mass/Vol] 7.0 g/dL Normal 6.0-7.8 [facility] Comment on above: Performed By: #### 2 306229, 7858139, 5856989, 367629584, 01514615, 1521482, 688004835 ####[facility] [address] [place] [address] Sodium [Moles/Vol] 139 mmol/L Normal 135-145 [facility] Comment on above: Performed By: #### 2 235570, 5478492, 2130894, 732539088, 69085760, 6551625, 351168839 ####[facility] [address] [place] [address] Urea nitrogen [Mass/Vol] 20 mg/dL Normal 5-21 [facility] Comment on above: Performed By: #### 2 234321, 1440187, 5304133, 980525840, 88936827, 8839186, 339966376 ####[facility] [address] [place] [address] Urea nitrogen/Creatinine [Mass ratio] 20 No Units Normal 10-20 [facility] Comment on above: Performed By: #### 2 458039, 3287885, 8317076, 568774076, 75170863, 8592978, 830736956 ####[facility] [address] [place] [address] Consent for Treatmenton 12-21 Consent for Treatment [id number]#1 .00CD:127 Normal [facility] FabU5yca 01-08-2023 HbA1c (Bld) [Mass fraction] 6.0 % High <=5.9 [facility] Comment on above: Performed By: #### 2 631348, 3660528, 9013549, 974437184, 15588946, 3815320, 305926051 ####[facility] [address] [place] [address] Lipid Panelon 01-08-2023 Cholesterol [Mass/Vol] 193 mg/dL Normal 120-200 [facility] Comment on above: Performed By: #### 2 020460, 5616040, 1972573, 514003667, 03627932, 4659120, 292888325 ####[facility] [address] [place] [address] Cholesterol in HDL [Mass/Vol] 69 mg/dL Invalid Interpretation Code [facility] Comment on above: Result Comment: HDL > or equal to 60 mg/dL: Low cardiovascular risk HDL < 40 mg/dL : High cardiovascular risk Performed By: #### 2 897526, 5728195, 0132443, 906859611, 17777149, 2530984, 367939430 ####[facility] [address] [place] [address] Cholesterol in LDL [Mass/Vol] 106 mg/dL Normal <=129 [facility] Comment on above: Performed By: #### 2 335843, 4579588, 6911539, 647174763, 52308678, 0695874, 601258140 ####[facility] [address] [place] [address] Cholesterol in VLDL [Mass/Vol] 18 mg/dL Normal 7-40 [facility] Comment on above: Performed By: #### 2 379248, 0426655, 6928841, 385463854, 60208072, 7954165, 151500189 ####[facility] [address] [place] [address] Triglyceride [Mass/Vol] 89 mg/dL Normal <=149 [facility] Comment on above: Performed By: #### 2 729687, 6588862, 5494898, 152633818, 87187235, 5030394, 142987432 ####[facility] [address] [facility] [place] [address] Vitamin D 25 Hydroxyon 01-08 25-hydroxyvitamin D3 [Mass/Vol] 24.7 ng/mL Low 30.0-100.0 [facility] Comment on above: Result Comment: Vit chin D deficiency has been defined as a level of serum 25-OH vitamin D less than 20 ng/mL (1,2) by the [place] [employer] and an Endocrine Society practice guideline. The Endocrine Society further defined vitamin D insufficiency as a level between 21 and 29 ng/mL (2). 1. IOM ([place] [employer]). 2010. Dietary reference intakes for calcium and D. [place]: The National Academies Press. 2. Galindo MF, Marly NC, Juaquin GARCIA, et al. Evaluation, treatment, and prevention of vitamin D deficiency: an Endocrine Society clinical practice guideline. JCEM. 2010; 96 (7):1911-30. Performed By: #### 2 400846, 9586485, 5060658, 072268606, 18271763, 1860984, 756681383 ####[facility] [address] [place] [address] eGFRon 01-08-2023 GFR/1.73 sq M.predicted among non-blacks MDRD (S/P/Bld) [Vol rate/Area] 80 mL/min/1.73 m2 Normal >=59 [facility] Comment on above: Order Comment: Order added by Discern Expert. Result Comment: Psychiatric Nursing Assistant geri kidney disease could be indicated at eGFR's of less than 60 mL/min/1.73m2. Kidney failure is indicated at less than 15 mL/min/1.73m2. Performed By: #### 2 976090, 1290591, 5195155, 671120301, 34813056, 6323839, 184506237 ####[facility] [address] [place] [address] Reminderson 09-02-2022 Reminders - From: Marlene Jang MA To: N - Clinical; Sent: 09/02/2022 08:52:41 EST Show up: 06/23/2032 08:52:00 EDT Subject: Colonoscopy recall- 10 years Due Date/Time: 08/10/2032 08:52:00 EST Reminder/Recall Last colonoscopy: 08/10/2022 Repeat: 10 years (patient may opt out due to age) Reason: Screening Normal [facility] IntraOperative Documentson 1 IntraOperative Documents [id number]# 1.00CD:127 Normal [facility] H&P Updateon 08-20-2022 H&P Update H&P Reviewed. [place] t seen and examined, appropriate for planned surgery Normal [facility] Coding Summary.on 08-14-2022 Coding Summary. CD:[id number] G h0bWw+PGhlYWQ+CU8RUPI sA71jySNikC8YC3wWQG2Z HCRKOYCHQG8JMF5jtVU4D EmsN1VwdwLl MljvgSVtJB36ELe6TUO5z RteWVotzM7vdYUuJ6n8Ua DrXT40oY84AWyeQEHvEbM 3LjZpbjsgbWFy V4nrOiUkpMWxLjr+PHRhY mxlIHdpZHRoPScxMDAlJy YikBglSB4aTr8lPQMoRKI vbGxhcHNlOiBj d4cqRZPcFFtsWK0aoYttD 1BbuWZ3JJOep2z3Dn82bY I+TUYbJKG5cQtnXUars81 4ZfCia3ycMJQ9 tCKhHApoTJA8L78oq0Z4I FEbOXYnZRA6pSG2vI2jsX fkuvdtQ1KirJWcTiG1SQF 1wZWpzR6bvQem mdgonG4qQcb+O34FAN6EW CFQCF3SAkm1X8UyTmiidI I+MR29NAFoAA21dKQlfUT tw6fwzOn7SxNe ZXMuJQP0pVxeNMnmo6EzL JQqJ03wmLIem2G1YTHamC ttrIRiGdVypEV4dE1oXFm yceynl2gaspbd Panwt8lnck91aD01B21hG EzjSEGeNNW3WZRcIMFvxK psgs6lgD4lXz1+IRzga9u kf4mctYp5WzYb PXGpphFgsWibWYF1i1NbQ o79C0QslHbzs1YkPew4bn 41sZGhw7O7wER9UPioYBJ ynQ9iOLvgHtU5 UZJxZxOdlL21gHQdCHquP c7seTeyaWrrEP4mFPIjsv byOYTpqE5xIDVkvTKyzEy wHV1aULRtgtfy o681GkFyKAJ0YCHpmQJzG 8KfnL0nKoGbGOJaMGCfE1 YeqCPfTFsuU783KXnjZzS 6KHLpjgSfJ0Np TIFkmMntKeC5c2G5Ev5Vg 1GifainQFJ4GUegKDFjBn CzOcFaSjV0I0KyVtb9KHR ucFowGW7pF8Ue LHIlzpojendocAT8BQCtV QAlkV04lTAmAGgoJc9qj1 J4o973BSHfSDKptL54Uw3 udDogMTBwdCBU qX8rgfuyj8sehngwPcDkK MRwTNl5PVz9GNEfdIbbFh VoISB1KnM1ZNJ2gFNmvF0 ecYjgnehxwT0p Oyc+G08atN1cWQF0CAY3w xqrCHDnoqCxZH81YR38P6 RyPjwvdGFibGU+PGRpdiB unVzfWZ6oJjPq p4uzw0DrXFnmW3XsYQDsP BfqVon0LSNcELS5bBM2nT 1cPRSdJBpwc9V1pIE2Q2M jmkOpjq2mw5lt FXFnDTjhV10cgCAvr6U4H SBqgUZ3VXZfvYhnPsUurZ 93Oyc+HNYchTtuy6KtBju ci8wic1nqwSw1 KaPsIAOkhkNyvLzwFQU1e 7XzSq59E04jQAesZOPuGL NhLOFuREErgJqvox7ccH1 wIi8+PGNvbCB3 sTW4aC6vFREfHkT4ZDblR 409LwXsgFAaVgnsp1pom2 jxhTq9EhPwZAJjilKrmCn dFXN0m6EgHt23 A51fXMamLMKnKFOsLAQrR RQfeGyllt4wrR3wYu8+PC 2qe2qcpm58qM05zSW+PHR yMLB0pJysLDpo FAMejC9cEHuqRnG6GKGjU kBowY76zTLuXPxyFe2hgS gtpOplBT2jRYFxdxjzw03 9ApOdb6szRKFt cCAmSGqqFPU6I07zp7O4M QNpJPSdCAW8bIT7dQ2pcA lnbjogbGVmdDsgdmVydGl dUCbgTQysU541 IHRvcDsnPlBhdGllbnQgT hOnTQn0I8McSip6FZXalM hqFL7qvRGmOCdkLq6paUv viJlcXA8nQEKf noitn127VkHyc6rzAOKgh RXzZScpWWR4J40ab5U2JH MwERUtKMC8vIB9oQ4rwNy nbjogbGVmdDsg uiEoiPmpGZhlAUxrG227X HRvcDsnPkJpcnRoIERhdG Y4AO31WF06wFCme7T8wEX 3N4DiSRSuihil zqcjaBZ2FVSbJCNchE93D v2haDdxBf0wYCUvXJZ6MD QwiDPfF7YjcR6cZcXiEJV rMHRxY7NxkOYr WVxiM197GMvbVhD1NLTyp lAcN4NzKYVxrXbpZlH3k6 L9Wv1TJ7Q0NK23IA73mWH kj2S7rIM1G8Vs HWKputxcvuujiSU3AWXkZ HWlcV48Jz3owNnqVr8xJA QvESS7XDOffTOlF9YenX8 yOiAjMDAwMDAw B2FubZYeHTjgE599ZFgaX rR1RFWphyWbC8KxGZZkpQ bbHeL6e8E8Rw7SFEr4UW1 9MQ72oMUea4X3 bKE5P1SlNARknuoerebki DJ6DWQfFTUtlY91Fx5hqL nmHv2sYUWuBJS1AXKktHM tM3CfzL3cRoAk GSDxMSVaV5HalKMiDDvmM 770PHqgFqX9TRGucjOkF5 KmYMLgnNskKuR3v6O8Ik5 NECVvDU61NZA4 gSM8PR56XL62Y7MtHsdfc GFibGU+PHRhYmxlIHdpZH RoPScxMDAlJyBzdHlsZT0 cMw5qUDLaYXRy oWsciSNfWlYgg1whGCLoN DdtEM7kgBjqW3KodPY3XP Uvv9u8Vy83U15wB8DzkKS +NFBuuFG5zXE8 zB0sYxPpDsF5VAluM360N iBtdTPaYlcab6hsl9nsiH r9IoZ1AWHgwcDhwStkWOU 6e3VeCm10U73j IHdpZHRoPSIxNSUiIHZhb Unqjc9jpL6hJm6+PGNvbC Z3nQC7jH3jYrBgNtJ2VHo gZ525LdXquMXr Jfycs9szt3nskGe0MqPnF MNdgjTggKcsDNC0l2DoHs 18I9YoaMfmp2SyEjr2yu5 4vNKbu0V2qAX6 T1EsACZhfhsotQHmsSxvC L8xQWDfxauaYCLmuT6gPT JvW9t0PiHiCdJ9VEzqU4R wavA3EIXxwALv NHdbKYQ0I31ms7N5AONtW XAiPKC7sBU0pG5wkLfpnr ogbGVmdDsgdmVydGljYWw hEAfrS626TNXu hRpkTOGmdX8mWVEvnNKrr XyePM2aNIMcsyhuRvFUJl bCC1okNINBRMUPWZ6qXLw vdGQ+PHRkIHN0 rRmiBExjKQWfmS2aPQSaJ 9n8RkUrPjO2TQhlT4BcEL QvsmyhTi00wU3pCrOcRgQ 4IJjbJ6ZdbdZ8 VMNhwYYkWYqmLAN5Y76cb 2K6PZJcNPMtOPO6fPW9dB 1hbGlnbjogbGVmdDsgdmV ydGljYWwtYWxp J327JGWmfYbkSiC8VtTaR xX5DLI6M4BcVpg5CDVeoZ riCP4oeWHjLRzoPn5cpWs ibZtaZN6hVDVi tkrkLURtsQ5qCSFbtBEhg IofEI8pILRnnuxqz458Jz UjWUJ0RSTshVBeC8XlwG9 yOiAjMDAwMDAw V0ZrdNAoLTanQ675AYcaR iS7PYHhihBnL3MyQBScgA nvRuR7w8Q1Ue26JwOGSGR yczwvdGQ+PHRk MZX7hJplAZdoRMVnbW2jQ OCoT0g9PbWrUmD9HJiiM6 NbYZZyzomiZx52fN1nFgH sUvQ2RAqlH5Yg skH9GOTcyBAvIRfuLKR3C 10yj7H2ZMTlKLQgJVD7dP T9tH1enZtazkitlITloJt gdmVydGljYWwt CMwuW964XIFcgRwwNw4oz QQ3U7UzMrr0OQMqhNyzIT 9ckQFxFCumFc0yeGqwwIt wNR7dYOPtflrd BSMwgA1wGMKmcZKgxVfuK G6mJXMyfhljt875XtGxBJ R6IKTqtKYmR1MrsQ4sIuM xEQRaLNUaL9Xs zXTyQJbjV553EYncKhK9J TOsoqScC7XiIFMkuPknEe Q8k9V9Vj1IwTYoBHQqJB6 6RA04LH72A8Ss PjwvdGFibGU+PHRhYmxlI HdpZHRoPScxMDAlJyBzdH cmEX7uIo1lPFNhSXFkrQb nfYYsUuUej7uj BQOhOEabHO4vjBznT4Hsh WU7LWEba1k2Dd68C77xT0 JvdXA+MGHdlAJ3gNK9pK0 gKpYuJjM0MIze A806KrGadQQjRzwrp3ygk 8kndYu8FgIhAEJuwrQazJ nbZCM1d0MaZx53L46cWWt pZHRoPSIyMCUi JIKguRfxfn8cnE7eNp6+P KYalDD3sQX7mJ1zHnEsCh Y8DHrmE577QlWvqSOgHen pE83rI8TqhCU+ ISPdQay1ZUCxiLoiVC3yx ZUgPUltBu4pHPF1GjGlHp DjQUhiX8FcVHWjlsqhnde xwBT9BEPyNTWq iY65Jk1wgGuaWk4uDKGvP VW2BUVloUUbN7OozE2qSw XuVCAnICGkN2IedRQqRCb oW093PGbsJkX8 YDJvuhTpC6TeMIFotMbyA lM0n7H7Lj0FgOzxoDHqST 5aUrYcSMh3N4RnOgl5SCM jbJyzRK9ssHJj OGkfQr8orKxwzKrrHJ6fE XLhkvqok241IfIbu8haRA TfdEPuJKohFNM7W71jl1W 7CQGyEHYdWAU0 gIG3zW8bbHhukrogsKTyb DsgdmVydGljYWwtYWxpZ2 24ZBLtqFcwPdUOOfm7F6V cBhb7LFQvwIcb CI7anXIdNNpvQx0abXvng PepFP0nRBIljxejs108Uz Wwq8loVJRmsDDeEZbyQMY 5I79jh1I1CIJf LFRpMNO0hBK1jC0gbKnba jogbGVmdDsgdmVydGljYW wzGDykC751TEYzdSppPt6 YLdb8H8NpYlq2 CLMtqUljHG5hpLNwNGncN s2rdVhjlZugIJ8bGFLmlv ncz573ZhBiw2wdNIMqeUT mBMepVWP7E48p t8Q4EKMkYIRpKQN5aFW6n E2mfQcxrwspkPSssBoycl ZfiZviVTfeIFtxJ792DJR vcDsnPlBheWVy OjwvdGQ+DG13eq96A0NwH owsHey9THYyZZN1dSW9rV 1vBOJtQJmgt5N7rXE9K9O zkkKgug8dk9yv YXBz (more content not included)... Normal [facility] Main OR Intraoperative Recor don 08-13-2022 Main OR Intraoperative Record IntraOp Document Type FT Summary Primary Physician: Jr Akbar MD Finalized Date/Time: 08/13/22 10:59:34 Pt. Name: TERRY OLGUIN Himanshu /Sex: 1950 Male Med Rec #: [id number] Physician: Jr Akbar MD Financial #: [id number] Pt. Type: O Room/Bed: / Admit/Disch: 08/10/22 [...] Bauer RN, Kathryn Rivera Role Performed Anesthesiologist Information Assistant - Primary Scrub - Primary Residential Building Inspector Time In 08/10/22 10:40:00 08/10/22 10:40:00 08/10/22 [...] and tissue Entry 1 Skin Integrity Intact, [place], Warm, and Skin Abnormality No Dry Outcomes [...] Leg Posi (more content not included)... Normal [facility] Postoperative Documentson Postoperative Documents [id number]#1 .00CD:127 [facility] Consenton 08-12-2022 Consent [id number]# 1.00CD:127 [facility] Discharge Instructionson Discharge Instructions [id number]# 1.00CD:127 [facility] IntraOperative Documentson 10-13-2021 IntraOperative Documents [id number]# 1.00CD:127 [facility] Consent for Treatmenton 07-23 Consent for Treatment [id number]#1 .00CD:127 [facility] Inpatient Patient Summaryon 08-10-2022 Inpatient Patient Summary [address] [address] [facility] Clinical Discharge Instructions PERSON INFORMATION Name: TERRY OLGUIN PHYSICIANS Admitting Physician: Jr Akbar MD Attending Physician: Jr Akbar MD PCP: Anna Marie Liu CNP Discharge Diagnosis: Comment: PATIENT EDUCATION INFORMATION Instructions: Colonoscopy, Adult, Care After Medication Leaflets: Follow up: With: Address: When: Jr Akbar Comments: will call with results Type Location Start [facility] 12/23/2022 8:40 AM 12/23/2022 9:00 AM Confirmed [...] day (at bedtime). Refills: 3. Comment: Normal [facility] Main OR PACU I Recordon 07-23 Main OR PACU I Record PACU Phase I Docum ent Type FT Summary Primary Physician: Jr Akbar MD Finalized Date/Time: 08/10/22 11:47:26 Pt. Name: TERRY OLGUIN Himanshu Trevino/Sex: 1950 Male Med Rec #: [id number] Physician: Jr Akbar MD Financial #: [id number] Pt. Type: O Room/Bed: / Admit/Disch: 08/10/22 [...] Signed By: Tani Knutson RN 08/10/22 11:47 [facility] Main OR Preoperative Recordo n 08-10-2022 Main OR Preoperative Record Holding Area Document Type FT Summary Primary Physician: Jr Akbar MD Finalized Date/Time: 08/10/22 10:12:33 Pt. Name: TERRY OLGUIN /Sex: 1950 Male Med Rec #: [id number] Physician: Jr Akbar MD Financial #: [id number] Pt. Type: O Room/Bed: / Admit/Disch: 08/10/22 [...] By: Liseth Diaz RN 08/10/22 10:12 Normal [facility] Monitor Recordon 08-10-2022 Monitor Record [id number]# 1.00CD:127 Normal [facility] Monitor Record [id number]# 1.00CD:127 Normal [facility] Operative Reporton Operative Report Patient: TERRY OLGUIN [...] forearm-local on 06/07/2015 at 65 Years. Colonoscopy ([id number]) on 12/11/2011 at 61 Years. Comments: 07/20/2022 13:11 Marlene Mo MA, [place]. at [facility] When called for records [facility] MR states it's out of retention range-LML Excision of lesion of joint of shoulder (341794928) in the month of 09/2008 at 58 Years. Comments: 03/28/2019 8:57 Avani Kincaid right shoulder and posterior scalp Excision of hand lesion ([id number]) in the month of 07/2004 at 54 Years. Comments: 03/28/2019 8:57 Avani Kincaid right Hernia repair (04690800).. Past Medical History Resolved Lumbosacral radiculitis (47980830): Resolved. Backache (738506183): Resolved. 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 Tachycardia (7007993): Resolved. Acute respiratory failure with hypoxia (551691129): Resolved. Pneumonia due to COVID-19 virus (7195476260): Resolved. Hyponatremia (988590187): Resolved. 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 Pneumonia (039856814): Resolved.. Family History History is unknown.. Procedure History excision lipoma left forearm-local on 06/07/2015 at 65 Years. Colonoscopy ([id number]) on 12/11/2011 at 61 Years. Comments: 07/20/2022 13:11 Marlene Mo MA, Dr. at [facility]. When called for records [facility] MR states it's out of retention range-LML Excision of lesion of joint of shoulder (988726551) in the month of 09/2008 at 58 Years. Comments: 03/28/2019 8:57 Avani Kincaid right shoulder and posterior scalp Excision of hand lesion (313561389) in the month of 07/2004 at 54 Years. Comments: 03/28/2019 8:57 Avani Kincaid right Hernia repair (36868500).. Colorectal neoplasm risk assessment Average risk. Informed [...] BID for itching, 54 gram, Refill(s) 0, [facility]pharmacy #[id number], 180, cm, 01/01/22 9:11:00 EDT, [...] bedtime), # 90 tab(s), Refills(s) 3, Pharmacy: [facility]/pharmacy #[id number], 180, cm, 11/03/21 13:55:00 EDT, [...] biopsy res (more content not included)... Normal [facility] Comment on above: Result Comment: Elec tronically Signed By: Raffy COOMBS, Jr Hendricks\.br\Date and Time Signed: 08/10/22 11:49 EST Outpatient Surgery Discharge Instructionon 08-10-2022 Outpatient Surgery Discharge Instruction [place] [id number] Patient Discharge Instructions PERSON INFORMATION Name: TERRY [...] will call with results Type Location Start [facility] 12/23/2022 8:40 AM 12/23/2022 9:00 AM Confirmed Pharmacy Information: [facility] [place] You may receive a survey from Saeed Gomez asking you to rate your care experience. Your feedback is important and will help us understand what we do well and how we can improve the quality of care we provide to you, your loved ones and our community. It?s an honor to serve you. Thank you for choosing [facility] HERE ARE THE MEDICATION CHANGES THAT OCCURRED [...] slower pace than normal. ? Eat soft, rpol-hv-drfpax foods. ? Take ivvm-pdt-qbbtlfu or prescription medicines only as told by [...] a fe (more content not included)... Normal [facility] Patient Education - [employer] 1 10-11-2021 Patient [...] slower pace than normal. ? Eat soft, ulxw-ko-ibmmqk foods. ? Take vjpp-cdi-ogqaohq or prescription medicines only as told by [...] 03/23/2005 Document Revised: 06/01/2018 Document Reviewed: 10/20/2016 [employer] Patient Education ? 2019 [employer]. [facility] Progress Note-Physicianon Progress Note-Physician Patient: TERRY [...] BID for itching, 54 gram, Refill(s) 0, [facility]pharmacy #[id number], 180, cm, 01/01/22 9:11:00 EDT, Height/Length Dosing, 97.4, kg, 01/01/22 9:11:00 EDT, Weight Dosing doxycycline hyclate 100 mg Cap: 100 mg = 1 cap(s), Oral, Daily, with fluids, # 30 cap(s), Refills(s) 5, Pharmacy: [facility]/pharmacy #[id number], 180, cm, 01/01/22 9:11:00 EDT, Height/Length Dosing, 97.4, kg, 01/01/22 9:11:00 EDT, Weight Dosing metronidazole topical 0.75% gel: 1 emily, Topical, BID, 45 gram, Refill(s) 1, apply a thin film to affected area after washing, morning and night, [facility]pharm[id number], 180, cm, 06/24/22 9:05:00 EDT, Height/Length Dosing, 98.3, kg, 06/24/22 9:05:00 EDT, Weight Dosing simvastatin 40 mg Tab: 40 mg = 1 tab(s), Oral, Once a day (at bedtime), # 90 tab(s), Refills(s) 3, Pharmacy: [facility]/pharmacy #[id number], 180, cm, 11/03/21 13:55:00 EDT, [...] of lower limb, acute / SNOMED CT 7885327960 / Confirmed BMI 30.0-30.9,adult / SNOMED CT 800458494 / Confirmed Hemorrhoids / SNOMED CT 441565689 / Confirmed History of COVID-19 / SNOMED CT 7442664197 / Confirmed Hyperlipidemia / SNOMED CT 06444301 / Confirmed Hypertension / SNOMED CT 3591871637 / Confirmed Non-smoker / SNOMED CT 48461015 / Confirmed Obesity / SNOMED CT 7028998840 / Confirmed Screening for prostate cancer / SNOMED CT 360698118 / Confirmed Screening for colon cancer / SNOMED CT 127826073 / Confirmed Seasonal allergies / SNOMED CT 7770643864 / Confirmed Vitamin D deficiency / SNOMED CT 25500704 / Confirmed Resolved: Acute respiratory failure with hypoxia / SNOMED CT 221348008 Resolved: At risk for falls / SNOMED CT 280987752 Problem added when Risk for Falls Careplan was initiated. Resolved due to patient discharge. Resolved: Backache / SNOMED CT 967475755 Resolved: Oxygen dependent / SNOMED CT 1211221687 Resolved: Displacement of intervertebral disc without myelopathy / SNOMED CT 007948175 Resolved: Hyponatremia / SNOMED CT 904449444 Resolved: Lumbosacral radiculitis / SNOMED CT 76554638 Resolved: Pneumonia / SNOMED CT 144985906 Resolved: Pneumonia due to COVID-19 virus / SNOMED CT 8634630849 Resolved: Tachycardia / SNOMED CT 2497246 Canceled: Acute hypoxemic respiratory failure due to COVID-19 / SNOMED CT 3620205139 Canceled: Patient had no falls in past year / SNOMED CT 3709533032 Canceled: On apixaban therapy / SNOMED CT 227967756 Canceled: Overweight with body mass index (BMI) of 29 to 29.9 in adult / SNOMED CT 2559577576, Active Problems (12) BMI 30.0-30.9,adult DVT of lower limb, acute Hemorrhoids History of COVID-19 Hyperlipidemia Hypertension Non-smoker Obesity Screening for colon cancer Screening for prostate cancer Seasonal allergies Vitamin D deficiency Histories Past Medical History: Resolved Lumbosacral radiculitis (76561933): Resolved. Backache (112251630): Resolved. Displacement of intervertebral disc without myelopathy (826687724): Resolved. Tachycardia (9066357): Resolved. Acute respiratory failure with hypoxia (232670608): Resolved. Pneumonia due to COVID-19 virus (5169885525): Resolved. Hyponatremia (144216397): Resolved. Oxygen dependent (8211821031): Resolved. Pneumonia (903920188): Resolved. Family History: History is unknown. Procedure history: excision lipoma left forearm-local on 06/07/2015 at 65 Years. Colonoscopy ([id number]) (more content not included)... Normal [facility] Comment on above: Result Comment: Elec tronically [...] PACU when criteria met. Condition good. Normal [facility] Comment on above: Result Comment: Elec tronically [...] EDT With: Anna Marie Liu CNP Where: [facility] Primary Care Normal [facility] General Surgery Office/Clini c Noteon 07-20-2022 General Surgery Office/Clinic Note Chief Complaint CRYSTAL GROWER screening colonoscopy HPI Staff CRYSTAL GROWER Terry is a 72 y.o. male here for screening colonoscopy Last colonoscopy Dr. Livingston in [place] approx 10 years prior Denies family history [...] a record of this procedure here at [facility]. The patient does take Eliquis [...] Lees [employer]ience to record this visit. POOJA call specialist and provider reviewed before signing. POOJA: [...] not included)... Normal [facility] Comment on above: Result Comment: Elec tronically [...] 0?1 drink (more content not included)... Normal [facility] Ambulatory Visit Summaryon 1 08-24-2021 Ambulatory Visit [...] after washing, morning and night Pickup at [facility]/pharmacy #[id number] Unchanged phenylephrine topical (Preparation H Cooling Gel [...] physician if questions or concerns Pharmacy Information [facility]/pharmacy #[id number]: [address], [place] [phone] Medications and Immunizations Administered Not Given influenza [...] Pneumonia due to COVID-19 virus Tachycardia Normal [facility] Ambulatory Visit Summary TERRY OLGUIN :1950 Visit [...] after washing, morning and night Pickup at [facility]/pharmacy #[id number] Unchanged phenylephrine topical (Preparation H [...] physician if questions or concerns Pharmacy Information [facility]/pharmacy #[id number]: [address] [place], [place] [phone] Medications and Immunizations Administered Not Given influenza [...] virus Tachycardia Normal [facility] Family Medicine Office/Clini c Noteon 06-24-2022 Family [...] Denies constipation. Colonoscopy: 8 years ago at [facility]. PSA: 0.11 08/21/21. Review of Systems PHQ [...] Neurologic: Cranial nerves II-XII grossly intact. Skin: [place], warm and dry. No rashes, ulcerations, or [...] medical support in addressing this problem. Visit [employer] for useful information to help make better choices when eating. Your BMI and weight management will be followed (more content not included)... Normal [facility] Comment on above: Result Comment: Elec tronically [...] rate/Area] mL/min/1.73 m2 Normal >=59mL/min/1 .73 m2 [facility] Chem S Globulin (S) [Mass/Vol] 2.6 g/dL [...] 208.0 E9/L Normal 150.0 - 500.0 E9/L [facility] HemeAutoSS RBC (Bld) [#/Vol] 5.2 E12/L Normal 4.3 - 5.9 E12/L [facility] HemeAutoSS WBC corrected for nucl RBC Auto (Bld) [#/Vol] 4.2 E9/L Normal 4.0 - 11.0 E9/L [facility] HemeAutoSS Vital Signs Date Time Vital Sign Value Performing Clinician Germaniai parthay 04-20-2023 08:50-0400 Blood Pressure Location Jr CAMPOS [facility] [place] 04-20-2023 08:50-0400 Body temperature 97.88 [degF] Jr CAMPOS [facility] [place] 04-20-2023 08:50-0400 Diastolic blood pressure 72 mm[Hg] Jr CAMPOS [facility] [place] 04-20-2023 08:50-0400 Heart rate 83 /min Jr CAMPOS [facility] [place] 04-20-2023 08:50-0400 SaO2% (BldA) [Mass fraction] 94 % Jr CAMPOS [facility] [place] 04-20-2023 08:50-0400 Systolic blood pressure 134 mm[Hg] Jr CAMPOS [facility] [place] 03-17-2023 12:00-0400 Diastolic blood pressure 90 mm[Hg] Jr CAMPOS [facility] [place] 03-17-2023 12:00-0400 Mean blood pressure 107 mm[Hg] Jr CAMPOS [facility] [place] 03-17-2023 12:00-0400 Systolic blood pressure 142 mm[Hg] Jr CAMPOS [facility] [place] 03-17-2023 11:42-0400 Blood Pressure Location Jr CAMPOS [facility] [place] 03-17-2023 11:42-0400 Body temperature 98.6 [degF] Jr CAMPOS [facility] [place] 03-17-2023 11:42-0400 Diastolic blood pressure 98 mm[Hg] Jr CAMPOS [facility] [place] 03-17-2023 11:42-0400 Heart rate 72 /min Jr CAMPOS [facility] [place] 03-17-2023 11:42-0400 SaO2% (BldA) [Mass fraction] 96 % Jr CAMPOS [facility] [place] 03-17-2023 11:42-0400 Systolic blood pressure 164 mm[Hg] Jr CAMPOS [facility] [place] 08-10-2022 11:25-0500 Blood Pressure Location Jr Akbar [facility] 08-10-2022 11:25-0500 Diastolic blood pressure 100 mm[Hg] Jr Akbar [facility] 08-10-2022 11:25-0500 Heart rate 73 /min Jr Akbar [facility] 08-10-2022 11:25-0500 Respiratory rate 17 /min Jr Akbar [facility] 08-10-2022 11:25-0500 SaO2% (BldA) [Mass fraction] 95 % Jr Akbar [facility] 08-10-2022 11:25-0500 Systolic blood pressure 159 mm[Hg] Jr Akbar [facility] 08-10-2022 11:20-0500 Blood Pressure Location Jr Akbar [facility] 08-10-2022 11:20-0500 Diastolic blood pressure 96 mm[Hg] Jr Mourany [facility] 08-10-2022 11:20-0500 Heart rate 78 /min Jr Mourany [facility] 08-10-2022 11:20-0500 Respiratory rate 16 /min Jr Mourany [facility] 08-10-2022 11:20-0500 SaO2% (BldA) [Mass fraction] 95 % Jr Mourany [facility] 08-10-2022 11:20-0500 Systolic blood pressure 147 mm[Hg] Jr Mourany [facility] 08-10-2022 11:15-0500 Blood Pressure Location Jr Mourany [facility] 08-10-2022 11:15-0500 Diastolic blood pressure 92 mm[Hg] Jr Mourany [facility] 08-10-2022 11:15-0500 Heart rate 84 /min Jr Mourany [facility] 08-10-2022 11:15-0500 Respiratory rate 16 /min Jr Mourany [facility] 08-10-2022 11:15-0500 SaO2% (BldA) [Mass fraction] 95 % Jr Mourany [facility] 08-10-2022 11:15-0500 Systolic blood pressure 139 mm[Hg] Jr Mourany [facility] 08-10-2022 11:00-0500 Body temperature 98.78 [degF] Jr Mourany [facility] 08-10-2022 10:19-0500 Body temperature 98.6 [degF] Jr Mourany [facility] 07-20-2022 13:03-0500 Diastolic blood pressure 81 mm[Hg] rJ Salcedourany [facility] [place] 07-20-2022 13:03-0500 Heart rate 85 /min Jr Parksy [facility] [place] 07-20-2022 13:03-0500 SaO2% (BldA) [Mass fraction] 96 % Jr Parksy [facility] 07-20-2022 13:03-0500 Systolic blood pressure 135 mm[Hg] Jr Salcedoana cristinay [facility] 06-24-2022 08:59-0400 Blood Pressure Location Anna Marie Liu [facility] 06-24-2022 08:59-0400 Body temperature 98.06 [degF] Anna Marie Liu [facility] 06-24-2022 08:59-0400 Diastolic blood pressure 72 mm[Hg] Anna Marie Wernerell [facility] 06-24-2022 08:59-0400 Heart rate 70 /min Anna Marie Wernerell [facility] 06-24-2022 08:59-0400 SaO2% (BldA) [Mass fraction] 97 % Anna Marie Wernerell [facility] 06-24-2022 08:59-0400 Systolic blood pressure 140 mm[Hg] Anna Marie Liu [facility] 01-01-2022 09:04-0400 Blood Pressure Location Anna Marie Wernerell [facility] 01-01-2022 09:04-0400 Body temperature 97.16 [degF] Anna Marie Liu [facility] 01-01-2022 09:04-0400 Diastolic blood pressure 82 mm[Hg] Anna Marie Wernerell [facility] 01-01-2022 09:04-0400 Heart rate 82 /min Anna Mariechepe Wernerell [facility] 01-01-2022 09:04-0400 SaO2% (BldA) [Mass fraction] 97 % Anna Marie Liu [facility] 01-01-2022 09:04-0400 Systolic blood pressure 140 mm[Hg] Anna Marie Liu [facility] Encounters Encounter Date Encounter Type Care Provider Facility Start: 07-29-2023 End: 07-29-2023 ambulatory SIMRAN EPSTEIN Not Available Start: 04-21-2023 End: 04-22-2023 ambulatory Jr CAMPOS Facility:[place] Start: 04-21-2023 End: 04-21-2023 Patient encounter procedure Jr CAMPOS [facility] Start: 04-20-2023 End: 04-21-2023 ambulatory Jr ACMPOS Facility:[facility] Start: 04-20-2023 End: 04-20-2023 Patient encounter procedure Jr CAMPOS [facility] Start: 04-14-2023 End: 04-15-2023 ambulatory Jr CAMPOS Facility[place] Start: 04-14-2023 End: 04-14-2023 Patient encounter procedure Jr Barros MONI [facility] Start: 03-17-2023 End: 03-18-2023 ambulatory Jr CAMPOS Facility:[facility] Start: 03-17-2023 End: 03-17-2023 Patient encounter procedure Jr Barros CAMPOS [facility] Start: 02-03-2023 End: 02-04-2023 ambulatory Jr Barros CAMPOS Facility:[facility] Start: 02-02-2023 End: 02-03-2023 ambulatory Jr CAMPOS Facility:[facility] Start: 02-02-2023 End: 02-02-2023 Patient encounter procedure Jr Barros MONI [facility] Start: 02-02-2023 ambulatory Facility:[id number] Start: 01-13-2023 End: 01-14-2023 ambulatory Jr CAMPOS Facility:[facility] Start: 01-08-2023 End: 01-09-2023 ambulatory Jr CAMPOS Facility:[facility] Start: 12-23-2022 ambulatory [employer]PR[employer]ER Anna Marie Liu Fa cility:[facility] Start: 08-10-2022 End: 08-11-2022 ambulatory Jr Akbar Facility:[facility] Start: 08-10-2022 End: 08-10-2022 Patient encounter procedure Jr Akbar [facility] Start: 07-20-2022 End: 07-21-2022 ambulatory Jr Akbar Facility:[facility] Start: 07-20-2022 End: 07-20-2022 Patient encounter procedure Jr Akbar [facility] [place] Start: 06-24-2022 End: 06-25-2022 ambulatory [employer] Anna Marie Liu Facility:[place] Start: 06-24-2022 End: 06-24-2022 Patient encounter procedure Anna Marie Liu [facility] Start: 01-01-2022 End: 01-01-2022 Patient encounter procedure Anna Marie Liu [facility] Start: 12-25-2021 End: 12-25-2021 Patient encounter procedure Anna Marie Liu [facility] Start: 12-01-2021 End: 12-01-2021 Patient encounter procedure Maurizio JOY [facility] Procedures Date Procedure Procedure Detail Performing Clinician Start: 06-07-2015 excision lipoma left forearm-local Maurizio JOY Start: 12-11-2011 Colonoscopy Jr Ellis ria Comment on above: Dr. Living[place] at [facility]. When called for records [facility]'s MR states it's out of retention range-LML [...] PF, 30 mcg/0.3 mL dose Maurizio JOY [facility] 06-30-2017 influenza virus vaccine, unspecified formulation Anna Marie Liu [facility] 06-25-2016 pneumococcal polysaccharide vaccine, 23 valent Anna Marie Liu [facility] 06-16-2012 tetanus toxoid, redu peggy diphtheria toxoid, and acellular pertussis vaccine, adsorbed Anna Marie Liu [facility] 06-16-2012 zoster vaccine, live Anna Marie Liu [facility] NEGATED: Highlighted row has not occurred!06-24-2022 influenza virus vaccine, unspecified formulation Anna Marie Liu [facility] NEGATED: Highlighted row has not occurred!08-28-2021 influenza virus vaccine, unspecified formulation Maurizio BENITA [facility] NEGATED: Highlighted row has not occurred!08-28-2021 SARS-CoV-2 (COVID-19) Ad26 vaccine, recombinant Maurizio LARSONMIGUEL ÁNGEL [facility] Payers Date Payer Category Payer Private Health Insurance [id number] 2023 Private Health Insurance 2023 Unknown 2022 Private Health Insurance [id number] 2022 Unknown [id number] 2021 Unknown [id number] 1950 Unknown [id number] 2.16.8 [id number] 1950 Unknown [id number] 2.16.8 [id number] 1950 Unknown [id number] 2.16.8 40.1.860071.3.579.2.727 1950 Unknown [id number] 2.16.8 40.1.228617.3.579.2.727 1950 Unknown [id number] 2.16.8 40.1.713451.3.579.2.727 1950 Unknown [id number] 2.16.8 40.1.422523.3.579.2.727 1950 Unknown [id number] 2.16.8 40.1.900491.3.579.2.727 1950 Unknown [id number] 2.16.8 40.1.821936.3.579.2.727 1950 Unknown [id number] 2.16.8 40.1.799695.3.579.2.727 1950 Unknown [id number] 2.16.8 40.1.150339.3.579.2.727 1950 Unknown [id number] 2.16.8 40.1.381644.3.579.2.727 1950 Unknown [id number] 2.16.8 40.1.451452.3.579.2.727 1950 Unknown [id number] 2.16.8 40.1.762396.3.579.2.727 1950 Unknown [id number] 2.16. [id number] 1950 Unknown [id number] 2.16.840 .[id number] Social History Date Type Detail Facility Start: 10-02-2021 End: 04-20-2023 Tobacco smoking status Never smoked tobacco (finding) [facility] Tobacco smoking status Never Jennifer [facility] Sex Assigned At Male [facility] Functional Status Date Assessment Result Facility 04-20-2023 Functional Status N/A [facility] 03-17-2023 Functional Status N/A [facility] 08-10-2022 Functional Status N/A [facility] 06-24-2022 Functional Status N/A [facility] Clinical Notes 01-01-2022 to 04-20-2023 Note Date & Type Note Facility 04-20-2023 Hospital Discharg e instructions Patient Education 04/20/2023 09:09:21 Hypertension, Adult, Yheq-vm-Mmsm Hypertension, Adult Hypertension is another name for [...] doctor. Keep all follow-up visits. Medicines Take mmff-fmi-xemhmns and prescription medicines only as told by [...] provider. Document Revised: 05/28/2022 Document Reviewed: 05/28/2022 Numerate Patient Education 2022 [employer]. Follow Up Care 03/17/2023 12:20:48 With:MONI COOMBS, Jr Barros, MED Address: [address] [place] [address] [place] [address]- When:Within 6 Month(s) [facility] 03-17-2023 Hospital Discharg e instructions Patient Education 03/17/2023 12:10:27 Hypertension, Adult, Wckm-fz-Biaa Hypertension, Adult Hypertension is another name for [...] doctor. Keep all follow-up visits. Medicines Take lwsg-ypb-ulrrpjs and prescription medicines only as told by [...] provider. Document Revised: 05/28/2022 Document Reviewed: 05/28/2022 Numerate Patient Education 2022 [employer]. Follow Up Care 01/13/2023 09:20:10 With:Jr CAMPOS MD, MED Address: [facility] [address], [place] [address]- When:Within 1 Month(s) [facility] 02-04-2023 Note Echocardiology Procedure Exam Date/Time Accession # Ordering Echo Transthoracic 02/02/2023 14:38 EDT [id number] Jr CAMPOS MD Complete CPT code 74938 [id number] Reason for Exam (Echo Transthoracic Complete) [id number];Dyspnea Report [facility] [address] [place] [address] Adult Echocardiogram Report Name: TERRY OLGUIN Study Date: 02/02/2023 01:10 PM BP: 139/74 mmHg Patient Location: [facility] HR: 78 : 1950 Gender: Male Height: 71 in Age: 72 yrs Ethnicity: T Weight: 214 lb Reason For Study: Dyspnea BSA: 2.2 m2 History: No cardiac history Ordering Physician: Jr CAMPOS Referring Physician: Jr CAMPOS Performed By: Fatemeh Gutierres, [facility] Interpretation Summary Normal LV and RV. Ejection [...] Signed by: Андрей Sheehan MD Transcribed by: [facility] Technologist: JULES [facility] 08-12-2022 Note [id number]:127 [facility] 08-10-2022 Evaluation + Plan note Extrac serena from: Title:SAILAJA POSTOP Author:Amrik Gonsalves DO Date: 08/10/22 Plan Transfer/ Discharge: Patient can be discharged from PACU when criteria met. Condition good. Extracted from: Title:SAILAJA PREOP ENDO NOTE Author:Sariah Gonsalves DO Date:08/10/22 Plan [place] [employer] (ASA) physical status classification: [...] 08:40:00 AM Scheduled Provider:Anna Marie Liu CNP Location:[facility] Appointment Type:FM Open Future Scheduled Tests Laboratory* Vitamin D 25 Hydroxy 01/01/22 * CBC w/ Auto Diff 06/24/22 * Comprehensive Metabolic Panel 01/01/22 * Comprehensive Metabolic Panel 06/24/22 * Lipid Panel 01/01/22 * Lipid Panel 06/24/22 [facility]12-19-2022 Hospital Discharge instructions Patient Education 08/10/2022 11:13:03 [...] 05/05/2005 Document Revised: 11/24/2018 Document Reviewed: 11/24/2018 Numerate Patient Education 2020 [employer]. 08/10/2022 11:13:03 Diverticulosis Diverticulosis Diverticulosis is a [...] overweight. Not getting enough exercise. Smoking. Taking meui-nvz-ssaqgof pain medicines, like aspirin and ibuprofen. Having [...] care provider or your diet and dairy nutritionist (dietitian). ?Take a fiber supplement or probiotic, if your health care provider approves. Take qkfr-klu-rmwslyl and prescription medicines only as told by [...] 05/06/2005 Document Revised: 07/22/2018 Document Reviewed: 06/28/2017 Numerate Patient Education 2020 [employer]. 08/10/2022 11:02:46 Colonoscopy, Adult, Care After Colonoscopy, [...] a slower pace than normal. ?Eat soft, uyzq-tq-huyjhv foods. Take irnx-ijj-jujewxi or prescription medicines only as told by [...] 03/23/2005 Document Revised: 06/01/2018 Document Reviewed: 10/20/2016 Numerate Patient Education 2019 [employer]. Follow Up Care 07/20/2022 13:22:22 With:Jr Akbar Address:Unknown When: Unknown Comments:will call with results [facility]11-28-2022 Hospital Discharge instructions Patient Education 07/20/2022 13:13:03 [...] ?Hypothyroidism. ?Polycystic ovarian syndrome (PCOS). ?Binge-eating disorder. ?Traci syndrome. Taking certain medicines, such as steroids, [...] food choices, such as grocery stores and [employer] markets. What are the signs or symptoms? [...] and how much exercise you get. Take tisa-udg-ehoxmmz and prescription medicines only as told by [...] 09/16/2005 Document Revised: 04/13/2019 Document Reviewed: 04/13/2019 Numerate Patient Education 2019 [employer]. [facility] [place] 05-12-2022 Hospital Discharge instructions Patient Education 01/01/2022 [...] 3 times a day. General instructions Take zxca-zcz-xxigrjk and prescription medicines only as told by [...] 08/06/2001 Document Revised: 01/05/2020 Document Reviewed: 12/29/2018 Numerate Patient Education 2020 [employer]. 01/01/2022 09:41:43 Dyslipidemia Dyslipidemia Dyslipidemia is an [...] quitting, ask your health care provider. Take haua-fvb-eazswtc and prescription medicines only as told by [...] 08/14/2014 Document Revised: 04/03/2019 Document Reviewed: 03/10/2019 Numerate Patient Education 2020 [employer]. 01/01/2022 09:41:41 DASH Eating Plan DASH Eating [...] health care provider or diet and dairy nutritionist (dietitian) to adjust your eating plan to [...] each week. ?Heart-healthy fats. Healthy fats called [place]-3 fatty acids are found in foods such [...] Dairy Whole or 2% milk, cream, and aqzp-bee-vjsc. Whole or full-fat cream cheese. Whole-fat or [...] more information: National Heart, Lung, and Blood [place]: www.nhlbi.nih.gov [place] [employer]: www.heart.org Summary The DASH eating [...] health care provider or diet and dairy nutritionist (dietitian) to adjust your eating plan to your individual calorie needs. This information is not intended to replace advice given to you by your health care provider. Make sure you discuss any questions you have with your health care provider. Document Released: 07/28/2012 Document Revised: 07/22/2018 Document Reviewed: 08/02/2017 Numerate Patient Education 2020 [employer]. 01/01/2022 09:41:39 Vitamin D Deficiency Vitamin D [...] 10/31/2012 Document Revised: 04/17/2019 Document Reviewed: 04/17/2019 Numerate Patient Education 2020 [employer] Follow Up Care 10/02/2021 11:52:41 With:Anna Marie Liu CNP Address: When:6 months [facility] Evaluation + Plan note Future Appointments Appointment Date:01/01/2022 09:00:00 AM Scheduled Provider:Anna Marie Liu CNP Location:[facility] Appointment Type:FM Open Future Scheduled Tests Laboratory* PSA Screen, Total 10/02/21 * Vitamin D 25 Hydroxy 10/02/21 * CBC w/ Auto Diff 10/02/21 * Comprehensive Metabolic Panel 10/02/21 * Lipid Panel 10/02/21 [facility] Evaluation + Plan note Future Appointments Appointment Date:01/01/2022 09:00:00 AM Scheduled Provider:Anna Marie Liu CNP Location:[facility]ments Appointment Date:06/24/2022 09:00:00 AM Scheduled Provider:Anna Marie Liu CNP Location:[facility] Appointment Type:FM Open Future Scheduled Tests Laboratory* Vitamin D 25 Hydroxy 01/01/22 * Comprehensive Metabolic Panel 01/01/22 * Lipid Panel 01/01/22 [facility] evaluation + Plan note Future Appointments Appointment Date:12/23/2022 08:40:00 AM Scheduled Provider:Anna Marie Liu CNP Location:[facility] Appointment Type:FM Open Future Scheduled Tests Laboratory* Vitamin D 25 Hydroxy 01/01/22 * CBC w/ Auto Diff 06/24/22 * Comprehensive Metabolic Panel 01/01/22 * Comprehensive Metabolic Panel 06/24/22 * Lipid Panel 01/01/22 * Lipid Panel 06/24/22 [facility] evaluation + Plan note Future Appointments Appointment Date:08/10/2022 11:00:00 AM Scheduled Provider: Location:[facility] Appointment Type:Surgery FT Appointment Date:12/23/2022 08:40:00 AM Scheduled Provider:Anna Marie Liu CNP Location:[facility] Appointment Type:FM Open Future Scheduled Tests Laboratory* Vitamin D 25 Hydroxy 01/01/22 * CBC w/ Auto Diff 06/24/22 * Comprehensive Metabolic Panel 01/01/22 * Comprehensive Metabolic Panel 06/24/22 * Lipid Panel 01/01/22 * Lipid Panel 06/24/22 [facility] [place] Evaluation + Plan note Future Appointments Appointment Date:02/03/2023 08:30:00 AM Scheduled Provider: Location:.[facility]ARDIO Appointment Type:PUL Pulmonary Function Test () Appointment Date:02/03/2023 09:30:00 AM Scheduled Provider: Location:.XRAY Appointment Type:XR Chest () Appointment Date:03/17/2023 11:40:00 AM Scheduled Provider:Jr CAMPOS MD Location:[facility] Appointment Type:FM Open Future Scheduled Tests Laboratory* CBC w/ Auto Diff 06/24/22 * Comprehensive Metabolic Panel 06/24/22 * [facility] Appointment Date:04/20/2023 08:40:00 AM Scheduled Provider:Jr CAMPOS MD Location:[facility] Appointment Type:FM Open Future Scheduled Tests Laboratory* Basic Metabolic Panel 03/17/23 * CBC w/ Auto Diff 06/24/22 * Comprehensive Metabolic Panel 06/24/22 * Lipid Panel 06/24/22 [facility] Evaluation + Plan note Future Appointments Appointment Date:04/20/2023 08:40:00 AM Scheduled Provider:Jr CAMPOS MD Location:[facility] Appointment Type:FM Open Future Scheduled Tests Laboratory* CBC w/ Auto Diff 06/24/22 * Comprehensive Metabolic Panel 06/24/22 * Lipid Panel 06/24/22 [facility] App[facility]ments Appointment Date:10/18/2023 09:00:00 AM Scheduled Provider:Jr CAMPOS MD Location:[facility] Appointment Type:FM Open Future Scheduled Tests Laboratory* HgbA1c 04/20/23 * PSA Screen, Total 04/20/23 * Vitamin D 25 Hydroxy 04/20/23 * CBC w/ Auto Diff 04/20/23 * CBC w/ Auto Diff 06/24/22 * Comprehensive Metabolic Panel 04/20/23 * Comprehensive Metabolic Panel 06/24/22 * Lipid Panel 04/20/23 * Lipid Panel 06/24/22 [facility] Hospital course Narrative No data available for this section [facility] Hospital Discharge instructions No data available for this section [facility] Progress note No data available for this section [facility] Summary Purpose Family History No Family History Records FoundNo Family History Records FoundNo Family History Records Found Advance Directives No Advanced Directives Records FoundNo Advanced Directives Records FoundNo Advanced Directives Records Found Additional Source Comments Patient Care team informatio n (unrecognized section and content) Personnel Name: Anna Marie Liu CNP Address: Address: [address] [place] [address] [place] Name: Elpidio Mullins Personnel Name: Anna Marie Liu CNP Address: Address: [address] [place] [address] [place] Name: Elpidio Mullins Personnel Name: Anna Marie Liu CNP Address: Address: [address] [place] [address] [place] Name: Elpidio Mullins Personnel Name: Jr CAMPOS MD Address: Address: [place] [address]- Name: Elpidio Mullins Personnel Name: Jr CAMPOS MD Address: Address: [place] [address] [address] [place] [address]- Name: Elpidio Mullins Personnel Name: Jr CAMPOS MD Address: Address: [place] [address] [address] [place], [place] [address] Name: Elpidio Mullins Personnel Name: Jr CAMPOS MD Address: Address: [facility] [address], [address] [place], [address] Name: Elpidio Mullins Personnel Name: Jr CAMPOS MD Address: Address: [facility] [address], [address] [place], [address] Name: Elpidio Mullins (unrecognized sect ion and content) No Status Records FoundNo Status Records FoundNo Status Records Found INFORMATION SOURCE (unrecogn ized section and content) DATE CREATED AUTHOR 05/02/[address] [facility] DATE CREATED AUTHOR AUTHOR'S ORGANIZ ATION 06/05/2023 [facility] DATE CREATED AUTHOR AUTHOR'S ORGANIZ ATION 07/31/2023 [facility] FOR RECORDS PERTAINING TO PATIENTS WHO ARE [...] BE BASED ON THE PRIMARY CLINICAL RECORDS. [facility] [employer] provides no warranty or guarantee of the accuracy or completeness of information in this document.
== END 2023-09-21 09:43 | disposition home or self-care (01) ==
LOC: PST 09:42
PROVIDERS: Visit Provider Ophthalmology
DX: Z01.818 Encounter for other preprocedural examination (principal); H25.812 Combined forms of age-related cataract, left eye

== ENCOUNTER 2023-09-23 06:18 | Day surgery (SDC) | payer OTHER, SELFPAY ==
--- NOTE | 2023-09-23 | HP_ITS ---
Date: 09/23/2023 HISTORY: The patient is a 73-year-old white male with complaints of declining vision out of his left eye. The gradual onset of this has occurred over the last 12 months, more rapidly progressing over the last four months. It is described as moderate in nature, constant and gradually worsening over that time frame. He states having difficulty driving at night time, with headlights creating glare and halos. He also states having difficulty seeing the television and reading. PAST OCULAR HISTORY / PAST MEDICAL HISTORY / SOCIAL HISTORY / MEDICATIONS / ALLERGIES TO MEDICATIONS / REVIEW OF SYSTEMS / PHYSICAL EXAM: Unchanged from previously dictated. ASSESSMENT AND PLAN: Visually significant cataract, left eye. After risks, benefits, alternatives, as well as expectations were delivered to the patient, he elected to go forward with cataract removal. He understands the risks include but not limited to infection, bleeding, loss of vision, loss of the eye itself. Secondly, he understands postoperatively he is likely to require spectacle correction for best visual acuity. Finally, a complete ophthalmic exam was performed, there is not determined to be any other source of visual decline other than that of the cataract. AMANDA
--- NOTE | 2023-09-23 | OP_ITS ---
OPERATION DATE: 09/23/2023 SURGEON: Brooks Tinoco M.D. PREOPERATIVE DIAGNOSIS: Nuclear sclerotic cataract left eye. POSTOPERATIVE DIAGNOSIS: Nuclear sclerotic cataract left eye. PROCEDURE NAME: Cataract extraction with intraocular lens placement for the left eye. ANESTHESIA: Topical ESTIMATED BLOOD LOSS: Zero. COMPLICATIONS: None. PROCEDURE: The patient was brought to the Operating Room in supine position. After proper identification, the left eye was prepped and draped in a sterile ophthalmic fashion. A paracentesis created at the 5 o'clock position. Approximately 1 cc of unpreserved Xylocaine was injected into the anterior chamber followed by Amvisc Plus. Using a 2.6 mm Keratome blade, a clear corneal incision was created at the 3 o'clock limbus. A cystotome was then used to begin a curvilinear capsulorrhexis that was continued for 360 degrees with the Utrata forceps. BSS on a 26 gauge cannula was injected beneath the anterior capsule to hydrodissect as well as hydrodelineate the lens. After ensuring mobility, phacoemulsification was performed in a [id number]-type fashion. After all nuclear material had been removed from the eye, IA was introduced and all residual cortical material was cleaned up. Additional Amvisc Plus was injected into the posterior bag and a lens model MX60, 17.5 diopters was injected and dialed into position. After ensuring centration, IA was reintroduced into the anterior chamber and all residual Amvisc Plus was removed from the eye. BSS on a 30 gauge cannula was injected into the stroma of both the clear corneal incision as well as paracentesis to hydrate the wounds. Additional BSS was injected into the anterior chamber to pressurize the eye at approximately 20 to 22 mmHg by finger tension. 0.1 cc of antibiotic was injected into the anterior chamber. Weck-Karina sponges were used to check the wounds to be watertight. One drop of apraclonidine and one drop of prednisolone acetate placed into the eye and a shield was placed over top. The patient was sent to the postoperative area in satisfactory condition to follow up the following day for postoperative care. AMANDA
--- OUTSIDE RECORDS SUMMARY | 2023-09-23 06:21 | XMS_ITS | CCD ---
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 Name Role Phone Anna Marie Liu Primary Care Physician Elpidio Mullins Unavailable Jr Ron Primary Care Physician [phone] Jr Akbar Attending Unavailable NEAL Liu Referring [...] Daily, # 90 tab(s), Refills(s) 3, Pharmacy: [facility]/pharmacy #[id number], 180, cm, 01/13/23 8:45:00 EDT, Height/Length Dosing, 97.1, kg, 01/13/23 8:45:00 EDT, Weight Dosing Start Date: 01/13/23 Status: Ordered Start: 06-27-2021 [facility] amLODIPine 10 mg Tab 10 [...] fluids, # 30 cap(s), Refills(s) 5, Pharmacy: [facility]/pharmacy #[id number], 180, cm, 08/10/22 10:10:00 EST, Height/Length Dosing, 99, kg, 08/10/22 10:10:00 EST, Weight Dosing Start Date: 12/21/22 Status: Ordered Start: 04-15-2022 take 1 capsule by mo [facility] once daily doxycycline hyclate 100 mg Cap 100 mg = 1 cap(s), Oral, Daily, with fluids, # 30 cap(s), Refills(s) 5, Pharmacy: [facility]/pharmacy #[id number], 180, cm, 01/01/22 9:11:00 EDT, Height/Length Dosing, 97.4, kg, 01/01/22 9:11:00 EDT, Weight Dosing Start Date: 04/15/22 Status: Ordered Start: 01-01-2022 End: 03-02-2022 take 1 capsule by mouth once daily doxycycline hyclate 100 mg Cap 100 mg = 1 cap(s), Oral, Daily, with fluids, X 30 day(s), # 30 cap(s), Refills(s) 1, [id number], cm, 01/01/22 9:11:00 EDT, Height/Length [...] symptoms, # 30 tab(s), Refills(s) 5, [id number], 180, cm, 04/20/23 8:55:00 EDT, Height/Length [...] q12hr, # 20 tab(s), Refills(s) 0, Pharmacy: [facility], 180, cm, 08/21/21 23:20:00 EST, Height/Length Dosing, 93.8, kg, 08/21/21 23:20:00 EST, Weight Dosing Start Date: 08/23/21 Status: Ordered hydrocortisone acetate 25 mg rectal suppository (5 sources) Corticosteroid Start: 03-23-2023 take 25 mg rectal route twice daily as needed Anusol-HC 25 mg rectal suppository 25 mg = 1 supp, Rectal, BID, PRN hemorrhoids, # 12 supp, Refills(s) 1, Pharmacy: [facility]/pharmacy #[id number], 180, cm, 03/17/23 11:50:00 EDT, Height/Length Dosing, 98.5, kg, 03/17/23 11:50:00 EDT, Weight Dosing Start Date: 03/23/23 Status: Ordered Start: 01-13-2023 take 25 mg rectal ro atka twice daily as needed Anusol-HC 25 mg rectal suppository 25 mg = 1 supp, Rectal, BID, PRN hemorrhoids, # 12 supp, Refills(s) 1, Pharmacy: [facility]/pharmacy #[id number], 180, cm, 01/13/23 8:45:00 EDT, Height/Length Dosing, 97.1, kg, 01/13/23 8:45:00 EDT, Weight Dosing Start Date: 01/13/23 Status: Ordered losartan potassium 100 mg oral tablet (4 sources) Angiotensin 2 Receptor Adam Start: 03-17-2023 take 1 tablet by mouth once daily losartan 100 mg Tab 100 mg = 1 tab(s), Oral, Daily, # 30 tab(s), Refills(s) 6, Pharmacy: [facility]/pharmacy #[id number], 180, cm, 03/17/23 11:50:00 EDT, Height/Length Dosing, 98.5, kg, 03/17/23 11:50:00 EDT, Weight Dosing Start Date: 03/17/23 Status: Ordered metroNIDAZOLE 0.0075 mg/mg topical gel (3 sources) Nitroimidazole Antimicrobial Start: 06-24-2022 metronidazole topical 0.75% gel 1 emily, Topical, BID, 45 gram, Refill(s) 1, apply a thin film to affected area after washing, morning and night, [facility]/pharmacy #[id number], 180, cm, 06/24/22 9:05:00 EDT, Height/Length Dosing, 98.3, kg, 06/24/22 9:05:00 EDT, Weight Dosing Start Date: 06/24/22 Status: Ordered Multi Vitamin+ (2 sources) Start: 03-28-2019 Multi Vitamin+ Refill(s) 0 Start Date: 03/28/19 Status: Ordered polyethylene glycol 3350 704084 mg / potassium chloride 1480 mg / sodium bicarbonate 5720 mg / sodium chloride 90212 mg powder for oral solution (1 source) Osmotic Laxative Start: 07-20-2022 take 1 dose by mouth once NuLYTELY [place] oral powder for reconstitution See Instructions, 1 EA, Refill(s) 0, Per physcisians instructions prior to colonoscopy, [facility]/pharmacy #[id number], 180, cm, 07/20/22 13:04:00 EST, Height/Length Dosing, 99, kg, 07/20/22 13:04:00 EST, Weight Dosing Start Date: 07/20/22 Status: Ordered Preparation H Cooling Gel 0.25% rectal (4 sources) Start: 01-01-2022 Preparation H Cooling Gel 0.25% rectal 1 emily, Topical, BID for itching, 54 gram, Refill(s) 0, [facility]/pharmacy #[id number], 180, cm, 01/01/22 9:11:00 EDT, Height/Length Dosing, 97.4, kg, 01/01/22 9:11:00 EDT, Weight Dosing Start Date: 01/01/22 Status: Ordered rosuvastatin calcium 10 mg oral tablet (5 sources) HMG-CoA Reductase Inhibitor Start: 01-13-2023 take 1 tablet by mouth once daily rosuvastatin 10 mg Tab 10 mg = 1 tab(s), Oral, Daily, # 90 tab(s), Refills(s) 3, Pharmacy: [facility]/pharmacy #6173, 180, cm, 01/13/23 [...] bedtime), # 90 tab(s), Refills(s) 3, Pharmacy: [facility]/pharmacy #6173, 180, cm, 11/03/21 13:55:00 EDT, Height/Length Dosing, 99.1, kg, 11/03/21 13:55:00 EDT, Weight Dosing Start Date: 11/27/21 Status: Ordered Vitamin D 1000 intl units (25 mcg) Tab (5 sources) Start: 01-13-2023 take 1 tablet by mouth once daily Vitamin D 1000 intl units (25 mcg) Tab 25 mcg = 1 tab(s), Oral, Daily, # 100 tab(s), Refills(s) 3, Pharmacy: [facility]/pharmacy #6173, 180, cm, 01/13/23 [...] week(s), # 16 cap(s), Refills(s) 0, Pharmacy: [facility], 178, cm, 10/02/21 [...] Barros, CHRISSY When: In 6 months Where: [facility] [address], [place] [address]- You Need to Complete the Following CBC [...] symptoms Allergic rhinitis Refills: 5 Pickup at [facility]/pharmacy #[id number] Unchanged amlodipine (amLODIPine 5 mg Tab) 1 [...] Pharmacy Information [id number]: [address] [place], [place] [id number] [phone] Allergies No Known Allergies Problems Ongoing - [...] What increase (more content not included)... Normal [facility] Family Medicine Office/Clini c Noteon 04-20-2023 Family [...] symptoms, # 30 tab(s), Refills(s) 5, Pharmacy: [facility]/pharmacy #6173, 180, cm, 04/20/23 [...] MONI COOMBS, CHRISSY Coe In 6 months [facility] [address] [facility], [place] [address]- Additional Instructions: Patient Education Hypertension, Adult, Brfm-sq-Kpil Problem List/Past Medical History Ongoing Allergic rhinitis [...] acel/tetanus adult (more content not included)... Normal [facility] Comment on above: Result Comment: Alo govea [...] Keep all follow-up visits. Medicines ? Take nrif-eex-fwhpwuo and prescription medicines only as told by [...] For m (more content not included)... Normal [facility] BMPon 04-14-2023 Anion gap [Moles/Vol] 10 mmol/L Normal 6-16 [facility] Comment on above: Performed By: #### 1 [id number], [id number] ####[facility] [address] [place] [address] Calcium [Mass/Vol] 9.0 mg/dL Normal 8.9-11.1 [facility] Comment on above: Performed By: #### 1 [id number], 8603121 ####[facility] [address] [place] [address] Chloride [Moles/Vol] 106 mmol/L Normal 101-111 [facility] Comment on above: Performed By: #### 1 [id number], [id number] ####[facility] [address] [place] [address] CO2 [Moles/Vol] 27 mmol/L Normal 21-31 [facility] Comment on above: Performed By: #### 1 8769855, 1308470 ####[facility] [address] [place] [address] Creatinine [Mass/Vol] 1.0 mg/dL Normal 0.5-1.3 [facility] Comment on above: Performed By: #### 1 1804412, 9120742 ####[facility] [address] [place] [address] Glucose [Mass/Vol] 101 mg/dL Normal 55-199 [facility] Comment on above: Result Comment: If t his glucose result represents a fasting glucose, interpretation should refer to the following reference range: 55-99 mg/dL Performed By: #### 1 [id number], 6791726 ####[facility] [address] [place] [address] Potassium [Moles/Vol] 3.9 mmol/L Normal 3.5-5.3 [facility] Comment on above: Performed By: #### 1 5085102, 7657159 ####[facility] [address] [place] [address] Sodium [Moles/Vol] 139 mmol/L Normal 135-145 [facility] Comment on above: Performed By: #### 1 [id number], 4920881 ####[facility] [address] [place] [address] Urea nitrogen [Mass/Vol] 24 mg/dL High 5-21 [facility] Comment on above: Performed By: #### 1 7799260, 3525322 ####[facility] [address] [place] [address] Urea nitrogen/Creatinine [Mass ratio] 24 No Units High 10-20 [facility] Comment on above: Performed By: #### 1 1194247, 5447430 ####[facility] [address] [place] [address] CHEMISTRYOrdered By: SYSTEM SYSTEM on 04-14-2023 Anion gap [Moles/Vol] 10 mmol/L Normal 6 - 16 mEq/L [facility] Calcium [Mass/Vol] 9.0 mg/dL Normal 8.9 - 11. 1 mg/dL [facility] Chloride [Moles/Vol] 106 mmol/L Normal 101 - 1 11 mmol/L [facility] CO2 [Moles/Vol] 27 mmol/L Normal 21 - 31 mmol/L [facility] Creatinine [Mass/Vol] 1.0 mg/dL Normal 0.5 - 1.3 mg/dL [facility] [place] [place] Remisol GFR/1.73 sq M.predicted among non-blacks MDRD (S/P/Bld) [Vol rate/Area] 79 mL/min/1.73 m2 Normal >=59mL/min/1 .73 m2 [facility] [place] [place] Chem S Glucose [Mass/Vol] 101 mg/dL Normal 55 - 199 mg/dL [facility] [place] [place] Remisol Potassium [Moles/Vol] 3.9 mmol/L Normal 3.5 - 5.3 mmol/L [facility] [place] [place] Remisol Sodium [Moles/Vol] 139 mmol/L Normal 135 - 145 mmol/L [facility] [place] [place] Remisol Urea nitrogen [Mass/Vol] 24 mg/dL High 5 - 21 mg/dL [facility] [place] [place] Remisol Urea nitrogen/Creatinine [Mass ratio] 24 mg/mg High 10 - 20 [facility] [place] [place] Remisol Consent for Treatmenton 03-24 Consent for Treatment [id number] .00CD:127 Normal [facility] eGFRon 04-14-2023 GFR/1.73 sq M.predicted among non-blacks MDRD (S/P/Bld) [Vol rate/Area] 79 mL/min/1.73 m2 Normal >=59 [facility] Comment on above: Order Comment: Order added by Discern Expert. Result Comment: Piling Cutter geri kidney disease could be indicated at eGFR's of less than 60 mL/min/1.73m2. Kidney failure is indicated at less than 15 mL/min/1.73m2. Performed By: #### 1 [id number], [id number] ####[facility] [address] [place] [address] Family Medicine Office/Clini c Noteon 03-17-2023 Family [...] Daily, # 30 tab(s), Refills(s) 6, Pharmacy: [facility]/pharmacy #6173, 180, cm, 03/17/23 [...] MONI COOMBS, CHRISSY Coe In 1 month [facility] [address], [place] [address]- Additional Instructions: Patient Education Hypertension, Adult, Xmdg-wc-Ydzg Problem List/Past Medical History Ongoing COPD mixed [...] to ref (more content not included)... Normal [facility] Comment on above: Result Comment: Elec [...] Keep all follow-up visits. Medicines ? Take czkm-xyj-einyhrr and prescription medicines only as told by [...] For m (more content not included)... Normal [facility] Pulmonary Function Studieson 02-05-2023 Pulmonary Function Studies [...] Ana Cristina Dorsey M.D. lr Dictated: 02/03/2023 [id number] Transcribed: 02/03/2023 cc:Jr Campos M.D. [facility] Comment on above: Result Comment: Elec tronically Signed By: Willian COOMBS, Ana Cristina Lao\.br\Date and Time Signed: 02/05/23 09:38 EDT Consent for Treatmenton 01-21 Consent for Treatment [id number] .00CD:127 [facility] Pulmonary Function Testson 0 02-03-2023 Pulmonary Function Tests [id number] .00CD:127 [facility] XR Chest 2 Viewson XR [...] are no acute osseous changes. Ordering Provider: rJ CAMPOS FINAL REPORT Dictated: 02/03/2023 12:08 pm Mark Moody MD, V. Signed (Electronic Signature): 02/03/2023 12:08 pm Signed by: Mark Moody MD, V. Transcribed by: STERLING Technologist: JESUS ALBERTO Technical Comments Radiation Dose: Ka,r in mGy = na DAP = na [facility] Consent for Treatmenton 01-21 Consent for Treatment [id number] .00CD:127 [facility] Family Medicine Office/Clini c Noteon [...] Daily, # 90 tab(s), Refills(s) 3, Pharmacy: [facility]/pharmacy #6173, 180, cm, 01/13/23 8:45:00 EDT, Height/Length Dosing, 97.1, kg, 01/13/23 8:45:00 EDT, Weight Dosing 2. Hyperlipidemia (E78.5: Hyperlipidemia, unspecified) change to rosuvastatin due to drug interactions of simvastatin lab is ok Ordered: rosuvastatin, 10 mg = 1 tab(s), Oral, Daily, # 90 tab(s), Refills(s) 3, Pharmacy: [facility]/pharmacy #6173, 180, cm, 01/13/23 8:45:00 EDT, Height/Length Dosing, 97.1, kg, 01/13/23 8:45:00 EDT, Weight Dosing 3. Fasting hyperglycemia (R73.01: Impaired fasting glucose) keep on diet 4. Vitamin D deficiency (E55.9: Vitamin D deficiency, unspecified) lab is low will start D3 1000 Ordered: cholecalciferol, 25 mcg = 1 tab(s), Oral, Daily, # 100 tab(s), Refills(s) 3, Pharmacy: [facility]/pharmacy #6173, 180, cm, 01/13/23 [...] hemorrhoids, # 12 supp, Refills(s) 1, Pharmacy: [facility]/pharmacy #6173, 180, cm, 01/13/23 8:45:00 EDT, Height/Length Dosing, 97.1, kg, 01/13/23 8:45:00 EDT, Weight Dosing Follow-up With When Contact Information CAMPOS , CHRISSY Coe In 2 months [facility] [address] [facility], [place] [address]- Additional Instructions: Patient Education Hypertension, Adult, Nkvs-ei-Yeul Problem List/Past Medical History Ongoing Dyspnea Fasting [...] Allergies S (more content not included)... Normal [facility] Comment on above: Result Comment: Elec [...] Keep all follow-up visits. Medicines ? Take aedi-aho-zangzjg and prescription medicines only as told by [...] For m (more content not included)... Normal [facility] Auto Diffon 01-08-2023 Basophils/100 WBC (Bld) 0.6 % Normal 0.0-2.0 [facility] Comment on above: Order Comment: Order Added by Discern Expert. Performed By: #### 2 448368, 0776073, 4767012, 071656161, 91691492, 9130967, 387331993 ####[facility] [address] [place] [address] Basophils/Leukocytes Auto (Bld) [Pure # fraction] 0.0 E9/L Normal 0.0-0.2 [facility] Comment on above: Order Comment: Order Added by Discern Expert. Performed By: #### 2 391449, 3240565, 5773654, 750738788, 14012014, 0400214, 646786556 ####[address] [address] Eosinophils/100 WBC (Bld) 5.0 % Normal 0.0-8.0 [facility] Comment on above: Order Comment: Order Added by Discern Expert. Performed By: #### 2 561066, 5543002, 2654698, 145794908, 09446775, 3112080, 293700732 ####[address] [place] [address] Eosinophils/Leukocyte s Auto (Bld) [Pure # fraction] 0.2 E9/L Normal 0.0-0.5 [facility] Comment on above: Order Comment: Order Added by Discern Expert. Performed By: #### 2 384336, 6416779, 2748651, 567246308, 31436249, 0342567, 983146663 ####[address] [address] Lymphocytes/100 WBC (Bld) 25.5 % Normal 14.0-50.0 [facility] Comment on above: Order Comment: Order Added by Discern Expert. Performed By: #### 2 991903, 0048281, 2102969, 229830131, 29024432, 2739614, 982320597 ####[address] [place] [address] Lymphocytes/Leukocyte s Auto (Bld) [Pure # fraction] 1.2 E9/L Normal 1.0-4.0 [facility] Comment on above: Order Comment: Order Added by Discern Expert. Performed By: #### 2 977596, 8741801, 2821201, 293815468, 77323662, 9595101, 823795817 ####[address] [address] Monocytes/100 WBC (Bld) 11.8 % Normal 4.0-14.0 [facility] Comment on above: Order Comment: Order Added by Discern Expert. Performed By: #### 2 817154, 6535445, 7750471, 382048636, 32286363, 1003056, 502629807 ####[address] [address] Monocytes/Leukocytes Auto (Bld) [Pure # fraction] 0.6 E9/L Normal 0.2-1.0 [facility] Comment on above: Order Comment: Order Added by Discern Expert. Performed By: #### 2 296630, 8846025, 4509305, 731369190, 33762012, 8787689, 660754557 ####[address] [address] Neutrophils/100 WBC (Bld) 57.1 % Normal 36.0-75.0 [facility] Comment on above: Order Comment: Order Added by Discern Expert. Performed By: #### 2 462767, 6456848, 9361358, 771277583, 94242738, 4377586, 599002339 ####[address] [address] Neutrophils/Leukocyte s Auto (Bld) [Pure # fraction] 2.7 E9/L Normal 2.0-7.5 [facility] Comment on above: Order Comment: Order Added by Discern Expert. Performed By: #### 2 753034, 6011213, 6527270, 071915146, 64319294, 7667172, 765380540 ####[facility] [address] [place] [address] CBC w/ Auto Diffon 3 Erythrocyte distribution width (RBC) [Ratio] 13.3 % Normal 10.9-14.2 [facility] Comment on above: Performed By: #### 2 284059, 6985238, 7618564, 057069257, 56976257, 7775927, 902353803 #### [facility] [address] [place] [address] Hematocrit (Bld) [Volume fraction] 48.5 % Normal 37.7-49.0 [facility] Comment on above: Performed By: #### 2 900423, 4494166, 2167649, 085024752, 34516858, 0560922, 963181675 #### [facility] [address] [place] [address] Hemoglobin (Bld) [Mass/Vol] 16.1 g/dL Normal 13.5-17.5 [facility] Comment on above: Performed By: #### 2 541285, 8270325, 9345159, 720755553, 64563668, 9853300, 049756328 #### [facility] [address] [place] [address] MCH (RBC) [Entitic mass] 31.1 pg Normal 27.0-34.0 [facility] Comment on above: Performed By: #### 2 119006, 0536940, 9885226, 528476806, 33410179, 8075659, 246659532 #### [facility] [address] [place] [address] MCHC (RBC) [Mass/Vol] 33.2 g/dL Normal 31.4-36.0 [facility] Comment on above: Performed By: #### 2 807062, 2666768, 3433616, 355477742, 49741587, 6186070, 886236141 #### [facility] [address] [place] [address] MCV (RBC) [Entitic vol] 93.8 fL Normal 80.0-100.0 [facility] Comment on above: Performed By: #### 2 268735, 1374627, 3113006, 554308733, 57511191, 7363219, 899110200 #### [facility] [address] [place] [address] Platelet mean volume (Bld) [Entitic vol] 6.5 fL Normal 6.4-10.8 [facility] Comment on above: Performed By: #### 2 652598, 9180847, 0843973, 482415868, 75386551, 5796791, 235293426 #### [facility] [address] [place] [address] Platelets (Bld) [#/Vol] 209.0 E9/L Normal 150.0-500.0 [facility] Comment on above: Performed By: #### 2 319901, 0546307, 7738065, 849246901, 20728256, 4875807, 380440017 #### [facility] [address] [place] [address] RBC (Bld) [#/Vol] 5.2 E12/L Normal 4.3-5.9 [facility] Comment on above: Performed By: #### 2 271225, 8154266, 0842634, 160752866, 76316191, 5217552, 389480601 #### [facility] [address] [place] [address] WBC corrected for nucl RBC Auto (Bld) [#/Vol] 4.8 E9/L Normal 4.0-11.0 [facility] Comment on above: Performed By: #### 2 489897, 1090028, 8106667, 748910056, 05550515, 6924530, 343006150 #### [facility] [address] [place], [place] [address] [place] [address] CMPon 01-08-2023 Albumin [Mass/Vol] 4.3 g/dL Normal 3.3-5.0 [facility] Comment on above: Performed By: #### 2 206026, 6873816, 4048712, 655061837, 50777855, 7561884, 469236049 ####[facility] [address] [place] [address] Albumin/Globulin (S) [Mass conc ratio] 1.6 Normal 1.1-2.2 [facility] Comment on above: Performed By: #### 2 730187, 5640452, 9603358, 906236128, 14268503, 4406652, 774032853 ####[facility] [address] [place] [address] ALP [Catalytic activity/Vol] 48 Int._Unit/L Normal 21-98 [facility] Comment on above: Performed By: #### 2 926830, 1485621, 4161692, 247106122, 16835562, 7963483, 856832777 ####[facility] [address] [place] [address] ALT No additional P-5'-P [Catalytic activity/Vol] 25 Int._Unit/L Normal 6-46 [facility] Comment on above: Performed By: #### 2 924238, 8564104, 3867365, 045410788, 56288390, 7863693, 112500774 ####[facility] [address] [place] [address] Anion gap [Moles/Vol] 12 mmol/L Normal 6-16 [facility] Comment on above: Performed By: #### 2 991764, 4889192, 9464581, 887826953, 91951316, 7556923, 439595176 ####[facility] [address] [place] [address] AST [Catalytic activity/Vol] 20 Int._Unit/L Normal 5-43 [facility] Comment on above: Performed By: #### 2 229771, 4481306, 0049546, 674542969, 48374936, 6901874, 002440609 ####[facility] [address] [place] [address] Bilirubin [Mass/Vol] 0.8 mg/dL Normal 0.0-1.1 [facility] Comment on above: Performed By: #### 2 333652, 8759142, 4322763, 983667223, 73873569, 7446039, 240033254 ####[facility] [address] [place] [address] Calcium [Mass/Vol] 9.1 mg/dL Normal 8.9-11.1 [facility] Comment on above: Performed By: #### 2 130916, 5548220, 1491372, 603114049, 98242222, 7564771, 048683999 ####[facility] [address] [place] [address] Chloride [Moles/Vol] 107 mmol/L Normal 101-111 [facility] Comment on above: Performed By: #### 2 196440, 5019780, 8582620, 091039531, 57413368, 8019600, 616295724 ####[facility] [address] [place] [address] CO2 [Moles/Vol] 24 mmol/L Normal 21-31 [facility] Comment on above: Performed By: #### 2 424252, 7629452, 6332133, 284755839, 77840270, 8000515, 731300826 ####[facility] [address] [place] [address] Creatinine [Mass/Vol] 1.0 mg/dL Normal 0.5-1.3 [facility] Comment on above: Performed By: #### 2 415171, 1417571, 7197515, 885227320, 05521364, 4891955, 215820052 ####[facility] [address] [place] [address] Globulin (S) [Mass/Vol] 2.7 g/dL Normal 1.4-4.0 [facility] Comment on above: Performed By: #### 2 909545, 0408746, 3847936, 942255105, 58570863, 6992291, 493223291 ####[facility] [address] [place] [address] Glucose [Mass/Vol] 121 mg/dL Normal 55-199 [facility] Comment on above: Result Comment: If t his glucose result represents a fasting glucose, interpretation should refer to the following reference range: 55-99 mg/dL Performed By: #### 2 090438, 0594730, 6198228, 082672359, 62564996, 4643006, 652687690 ####[facility] [address] [place] [address] Potassium [Moles/Vol] 4.1 mmol/L Normal 3.5-5.3 [facility] Comment on above: Performed By: #### 2 605289, 0610114, 8786434, 128099405, 70397709, 4039290, 986801519 ####[facility] [address] [place] [address] Protein [Mass/Vol] 7.0 g/dL Normal 6.0-7.8 [facility] Comment on above: Performed By: #### 2 859627, 9187247, 9799334, 742254463, 63249807, 6576510, 893779218 ####[facility] [address] [place] [address] Sodium [Moles/Vol] 139 mmol/L Normal 135-145 [facility] Comment on above: Performed By: #### 2 445616, 7348533, 2597194, 266791268, 38187510, 6130156, 224951267 ####[facility] [address] [place] [address] Urea nitrogen [Mass/Vol] 20 mg/dL Normal 5-21 [facility] Comment on above: Performed By: #### 2 044423, 5227472, 8267615, 093640189, 84929999, 8224186, 994760691 ####[facility] [address] [place] [address] Urea nitrogen/Creatinine [Mass ratio] 20 No Units Normal 10-20 [facility] Comment on above: Performed By: #### 2 292009, 6516030, 9346295, [id number], 70214941, 7601700, [id number] ####[facility] [address] [place] [address] Consent for Treatmenton 12-21 Consent for Treatment [id number]#1 .00CD:127 Normal [facility] HtqN5dsv 01-08-2023 HbA1c (Bld) [Mass fraction] 6.0 % High <=5.9 [facility] Comment on above: Performed By: #### 2 116600, 1581994, 7200751, 434330515, 56448535, 6332586, 761102114 ####[facility] [address] [place] [address] Lipid Panelon 01-08-2023 Cholesterol [Mass/Vol] 193 mg/dL Normal 120-200 [facility] Comment on above: Performed By: #### 2 251858, 2137756, 9490760, 480165274, 15925725, 1630959, [id number] ####[facility] [address] [place] [address] Cholesterol in HDL [Mass/Vol] 69 mg/dL Invalid Interpretation Code [facility] Comment on above: Result Comment: HDL > or equal to 60 mg/dL: Low cardiovascular risk HDL < 40 mg/dL : High cardiovascular risk Performed By: #### 2 357605, 9640939, 9964697, 865075261, 97899445, 2919339, [id number] ####[facility] [address] [place] [address] Cholesterol in LDL [Mass/Vol] 106 mg/dL Normal <=129 [facility] Comment on above: Performed By: #### 2 224376, 6833000, 7248750, 241140197, 72606708, 5052275, 446846628 ####[facility] [address] [place] [address] Cholesterol in VLDL [Mass/Vol] 18 mg/dL Normal 7-40 [facility] Comment on above: Performed By: #### 2 429666, 6679742, 2910576, 341307834, 50488030, 2023651, 077437546 ####[facility] [address] [place] [address] Triglyceride [Mass/Vol] 89 mg/dL Normal <=149 [facility] Comment on above: Performed By: #### 2 406005, 4113220, 9521004, 046147718, 75626087, 9935737, 912190702 ####[facility] [address] [facility] [place] [address] Vitamin D 25 Hydroxyon 01-08 25-hydroxyvitamin D3 [Mass/Vol] 24.7 ng/mL Low 30.0-100.0 [facility] Comment on above: Result Comment: Vit chin D deficiency has been defined as a level of serum 25-OH vitamin D less than 20 ng/mL (1,2) by the [place] of Medicine and an Endocrine Society practice guideline. The Endocrine Society further defined vitamin D insufficiency as a level between 21 and 29 ng/mL (2). 1. IOM ([place] of Medicine). 2010. Dietary reference intakes for calcium and D. [place]: The National Academies Press. 2. Galindo MF, Marly NC, Juaquin GARCIA, et al. Evaluation, treatment, and prevention of vitamin D deficiency: an Endocrine Society clinical practice guideline. JCEM. 2010; 96 (7):1911-30. Performed By: #### 2 543359, 1422805, 1150838, 541986374, 40051659, 6204645, 333462654 ####[facility] [address] [place] [address] eGFRon 01-08-2023 GFR/1.73 sq M.predicted among non-blacks MDRD (S/P/Bld) [Vol rate/Area] 80 mL/min/1.73 m2 Normal >=59 [facility] Comment on above: Order Comment: Order added by Discern Expert. Result Comment: Piling Cutter geri kidney disease could be indicated at eGFR's of less than 60 mL/min/1.73m2. Kidney failure is indicated at less than 15 mL/min/1.73m2. Performed By: #### 2 186617, 1458034, 8564264, 557481613, 19000154, 2918262, 248999893 ####[facility] [address] [place] [address] Reminderson 09-02-2022 Reminders - From: Marlene Jang MA To: N - Clinical; Sent: 09/02/2022 08:52:41 EST Show up: 06/23/2032 08:52:00 EDT Subject: Colonoscopy recall- 10 years Due Date/Time: 08/10/2032 08:52:00 EST Reminder/Recall Last colonoscopy: 08/10/2022 Repeat: 10 years (patient may opt out due to age) Reason: Screening Normal [facility] IntraOperative Documentson 1 IntraOperative Documents [id number]# 1.00CD:127 Normal [facility] H&P Updateon 08-20-2022 H&P Update H&P Reviewed. [place] t seen and examined, appropriate for planned surgery Normal [facility] Coding Summary.on 08-14-2022 Coding Summary. CD:[id number]:[id number] G h0bWw+PGhlYWQ+MU1BZTT wP73pdZHqkX6VC3bXYG0R TAXYZFSHXM8USI9teAB6R PlqR2YuqdSe NrgnxOXlBA37XVe2XSR1l QrmLYszrU4iiUIoU3c6Oq OhEF47jX26NHskOMLrArQ 3LjZpbjsgbWFy U0riOrEreGZaWgp+PHRhY mxlIHdpZHRoPScxMDAlJy MfkFxeYG6oJr6sWEKsIVL vbGxhcHNlOiBj y4dySKYfFXrmLG1utEqvB 4BazZS3SUPid5o3Yn24qM I+IOCbSIG4pPbzMSbft92 6PzJqs5tyGTM3 lCXkBRrxXRH0S30jg5I4R YYzBCFyXFN6qMH7iW6ugT gjpvtuS6UuzXKpWxS5IFR 0gIKqaB4xkGhc lsyzvV3vTyn+C28XYF8QO GGYLX4YTrs2Q3LkLgbmjJ I+DL88QZItAU98qBOuaAY ch5gasWf2OfPz VHSwPWO2hLguKYikx0AhX IVbH12toAJgq8E3MNAvtH njjDHpReIlzET8oF9eYFn mfzrep4bshcuj Uamfa2ejut18wG05A61sX DlcRBBnWLP7AJXvJRRagP aghf3roO3fPk5+VZuug1n uw8niiVw9DuOc QKMwymWkuBhkTPU0u0JjH k31O8WgcFmvw1IfDie4rn 05bBAod3T8pPC7CHezYFZ teE1mTBmkEjW3 KUKxMbMloT42pACxNGqkQ f1voNydvGspGN3aEBCbnl vmLZYowV0tZLEbwCNsfPg tUJ0oTCJalwrv f488HpDjTXV0KTQfgLBtT 9UmzA0oAkMgLRGcDZWrM1 MbuFUjIXzdC539QIznYiU 7STRgojZtS7As HBHjyEkqEuT6n2T9Fp4La 4OvuugvGDB0BIwtOGGwGm NjMcWeNnH6A5CpIsm6WEE wlVwuYF4hH9Jn TVXipteevnmkdCD8JDPmO INwoB45iRIqZHwpFp2wd1 E8r710TPDvDMIypX93Np3 udDogMTBwdCBU vY1xgznjr8hnwbarMbEtG XLdWGn6UFz5KRIzgLbsHt CfAKN3QhV8PLS7kSRjoL0 pfIcjcnomuY8j Oyc+C54axK5lVNY9SDT0t jvmJZOaplDwSO44BJ62T8 RyPjwvdGFibGU+PGRpdiB uiYxvXC5rSbBf o4kct6WeBRjuY4WeJNUcJ BltGna5TXLdSIS4rHE3pP 3wRIFwOLctr8K7lLD1N8O sclOxnw3rf8mp UGRmLQkoM94quMXyk4W0S GWckMC6SVGzzPusKpZltG 93Oyc+EWHjfHnim2YaFwe rs9rhz8faoVb2 QsBeNQGxpxMjzJdbENO7o 6RxBe50E38aGOrrPIIxKH McFPAxDRRgbEuice8hmC6 wIi8+PGNvbCB3 nFP9rQ2kJTZwNwL7POpdQ 649ScTwxNEvHzzpv2uom4 wxiVc6CeAxHYJkhkUqfBu nRDJ2g2BcAy69 T13oUAmzVLNiLOCkTAHsQ JQcpLozpf8emY1lNl8+PC 4bo9rurs54sW95vBK+PHR aEOM2cSkjFAgc WTRzjB2jYTtiQeP7MAUlS iVlkG00mIEwYDaeDo5zjI fjkXymYC3xZECexxrdh88 1RxIoe2urFBZx dQVoSXokAAI7I36jy1V3C YRcONKmJLX1vRL8rV4cvL lnbjogbGVmdDsgdmVydGl iRCrfXUjcW877 IHRvcDsnPlBhdGllbnQgT zLyCMo6N3DfKxi8FHAbmY csYJ3hbFCcRGcqAk8vtGz koBhtPD4kANWo emnpj225InCmh8gqOJNfs LStIVbrVCH5W06ms5B0IY PfNUDxABJ5dYO1xV0nrMe nbjogbGVmdDsg zuBjnIsxYZjvUOxiC785V HRvcDsnPkJpcnRoIERhdG J8MD46DB56fOPyo5M2zSP 8F4QfOPTaduve wakgkIZ9UFOcXTUdjB75D h8smWlbJx1vACYpYYI5JX BveUTtS3SosM4tTtDtBBS sHGDaC0TfcYWf JQmxD933DExqSlK7TGHzu bMxQ0FwWYEmiCkkUnO7i3 S6Qf9DK6Q5CI40BM28tER qi5K2gQM7K4Zg NGMaxapxehhhdEP7BYMzF MEmgT33Hc9kuUgjLn7bHK JiMFB7UUZsiLYnH9RmsR1 yOiAjMDAwMDAw G6XofSQkXNveG163GCvsK lK7RTDagrRnA5CpXLKgnO upFqH6s2W5Pm8AMQr8RT1 7MO18wEWzo7X8 dRJ7D2RgBZAutpvezsnth XM9DQHlXQHnzP58Hb8gsK tdCu2jKCSbQPY2EILxuMR gB1WbzM9dQdJu MTTtFDGgC1CliGKkWHczL 285PVlhFjV4GKXryvInF0 OpJKZpbLydTjH1n3D4Fd6 BYJKvNU76UGX8 dAM5PN67GO39C3UyTkcpk GFibGU+PHRhYmxlIHdpZH RoPScxMDAlJyBzdHlsZT0 tNx3uOFWmKOQg wNzfuCGoXkYhy0agZDMnC RnjNI3uvQpxI5UtmBZ7CM Cqp1i1Uh37N73jP7XteXH +HCQejTM9lTO6 fR5uBpNnBsL1XXvuA769Y bEwxAGxUnfsc3ztl6pzvX k1EgV6UWDjfvLkgLuoWPT 8s2UmBa58A43h IHdpZHRoPSIxNSUiIHZhb Jklir0sjY2qKx1+PGNvbC D3uDD2mS5xXjSaHuL1VBz jP642JzMctOAy Pdqnh3qfg9cvoKc7DgHcW LCgvoRzjFaoALB2j5GqDm 28W6MsxJykv3EqYcn3ye7 2mYYqr7R0aQB2 V2KsMEBcatxauKRwuPkoW R5nBZAniosjKFDvdQ7vXC YjF1g4HpOyGfF9IDezK8M amzA7DONnmZNu NHiaVEF0D49ew4L0SVTtP RNqNOK6iYL8bA0hsEneyw ogbGVmdDsgdmVydGljYWw bHBdrM607LRWm cJuiJWMrgB4zHZRuoJXwl EuaUJ7nJIXxpavwEjRICl tQK2hjYNWSBJWQJU6mKKn vdGQ+PHRkIHN0 qSedBFzpJXKxvK8pXUQqK 5k5LsOjYuP7OCdrV4UuXJ PaprtxBj86sM8uKaDvWsC 8ILbtF9ItfbB5 OZUxkUIcKSplKPR9F40we 2I8BTDsIIReHCG6lKS0gN 1hbGlnbjogbGVmdDsgdmV ydGljYWwtYWxp P432QAPlaEhuAbF4QaRjE wE2YPJ3D4HqPdo8WJJyaK fqZW5jgGMyQAwiSi7keCi emSveHI1mWSNk yrgcTLFlrF5gFZCriQWxa KjeQV1qFQQkicwlc346Ga FvRBV5YEDlkCSwP1HopV1 yOiAjMDAwMDAw N1AcpJOxHPlhA026VRjuI pZ8NCZafeMvN3VdSMPveP xyQjK5x0S3Cq77DzPOKLN yczwvdGQ+PHRk ATY7hVepRXbsEXXurH2tP IOuN5i6BaYtPyN5AZhqI9 FoLEUmrxhcAj35aY5wIbR vUlB7CGhaF2He ueJ2LUIzuGZqMBwpQRI1F 56rq4D4ZYIgAYOmNXV2gN H7eN6zcVpjohxbuCBpaVi gdmVydGljYWwt EEwdY528QZWgaEsqVn0qd LK3I0HnQdo5VHFhzKaxRD 1bfUPyEAueZj1dkVvisSi xOX2xZVLarivv JZPdfY2aZVDwjCIisRknN E3tHBRvfnbbw611MnDhYO D1KOSmtUUbN0YjeT5tZsZ wMFMdKOQyJ7Qs wTSnYKukH142NYumKiD2G FBxfoHsX7AmVEMniXnyCm T9u7Y8Lx1WrKGhKWOyZV1 6ZU70QP83A0Kv PjwvdGFibGU+PHRhYmxlI HdpZHRoPScxMDAlJyBzdH hgBR3oPg4nPWLoVNNewWd epXJkVgThy5yl NRUcHNvnHB3qcKtuS2Zmd XZ8JYLrm7h3Vk24E23mQ3 JvdXA+RWCqnNF8sEI5tS8 hHdEeXbH9OHpd V991QkVgcEGjKeqst4mpd 9tpeUm3OkSwDGFwrpDvbS snYGT9p6WxKe20Q67aCLi pZHRoPSIyMCUi TIEawSeazp8gfO5wFn2+P VPmvKE9bYS9wE8jCcJqWk N3XOogY580QkScwEJzDni mZ78sJ2BbxVZ+ NHUgHcn1BMWyzYfnBB5gc BVzWOjrYq4bNCA5HeXjWm XpHKszJ7LxDWWwtxfprgd fmEK1ENOwSBMb pT70Cw4srCoeRz3rHRWkD TH8YXXadBHuF4LquZ9jOx UgEVWxIAInQ8ZxkVLdUOh uV745JVsnOvP5 WKVlecHjW7AsFWOjnLkcN wX3w8W2Ko5MbHprcYBpRN 1fUkCzQCt3U2FwWim4QTR gkDudXL7lkEIo EOzrUl0reRfnaArkMT0yQ PCmefhhl622BkGjo1bgBS OwnOYhOEwjVKE8K50tf3G 1SYPjYMOzXBQ9 mKQ8oM8fuAvwdshmbCCgw DsgdmVydGljYWwtYWxpZ2 54DACwySlfSvPNUsy5T2C zEgb0EGKeyAqo CR7enMHwUMozDb4svJile VspJG4tPQOczixip712Xj Usc2eoALTnzEQxKQoxGVN 7L98pn4M7BDSh AOHaCWM2zPH2nY7qpAwgc jogbGVmdDsgdmVydGljYW pgYSbzI067RCIofCgzEk0 JKgk2K9NiGds6 UVZovDqkWG3acUGcQCfqR n1pdWphpJctBZ1oAHZyih nbi455MvKrt6hbHUJeiIN iHUvoCVV2E85t v7D5UBKnEUOdXJJ0dDI9q D1itHrvpwmeiUIbeVzayd XsrQtpKVvwEDzxG623CSS vcDsnPlBheWVy OjwvdGQ+DQ49xk63Q8KxR mskMsi6XXBzYWE9iRU6fI 2iDJMvZJzwf8C3tBR1R3D rnnZent0iu7ix YXBz (more content not included)... Normal [facility] Main OR Intraoperative Recor don 08-13-2022 Main OR Intraoperative Record IntraOp Document Type FT Summary Primary Physician: Jr Akbar MD Finalized Date/Time: 08/13/22 10:59:34 Pt. Name: TERRY OLGUIN Himanshu /Sex: 1950 Male Med Rec #: [id number] Physician: Jr Akbar MD Financial #: [id number] Pt. Type: O Room/Bed: / Admit/Disch: 08/10/22 [...] Bauer RN, Kathryn Rivera Role Performed Anesthesiologist Nutrition Coordinator - Primary Scrub - Primary Rail Project Engineer Time In 08/10/22 10:40:00 08/10/22 10:40:00 08/10/22 [...] and tissue Entry 1 Skin Integrity Intact, [place], Warm, and Skin Abnormality No Dry Outcomes [...] Leg Posi (more content not included)... Normal [facility] Postoperative Documentson Postoperative Documents [id number]#1 .00CD:127 [facility] Consenton 08-12-2022 Consent [id number]# 1.00CD:127 [facility] Discharge Instructionson Discharge Instructions [id number]# 1.00CD:127 [facility] IntraOperative Documentson 10-13-2021 IntraOperative Documents [id number]# 1.00CD:127 [facility] Consent for Treatmenton 07-23 Consent for Treatment [id number]#1 .00CD:127 [facility] Inpatient Patient Summaryon 08-10-2022 Inpatient Patient Summary [address] [address] [facility] Clinical Discharge Instructions PERSON INFORMATION Name: TERRY OLGUIN PHYSICIANS Admitting Physician: Jr Akbar MD Attending Physician: Jr Akbar MD PCP: Anna Marie Liu CNP Discharge Diagnosis: Comment: PATIENT EDUCATION INFORMATION Instructions: Colonoscopy, Adult, Care After Medication Leaflets: Follow up: With: Address: When: Jr Akbar Comments: will call with results Type Location Start [facility] 12/23/2022 8:40 AM 12/23/2022 9:00 AM [...] day (at bedtime). Refills: 3. Comment: Normal [facility] Main OR PACU I Recordon 07-23 Main OR PACU I Record PACU Phase I Docum ent Type FT Summary Primary Physician: Jr Akbar MD Finalized Date/Time: 08/10/22 11:47:26 Pt. Name: TERRY OLGUIN Himanshu Trevino/Sex: 1950 Male Med Rec #: [id number] Physician: Jr Akbar MD Financial #: [id number] Pt. Type: O Room/Bed: / Admit/Disch: 08/10/22 [...] Signed By: Tani Knutson RN 08/10/22 11:47 [facility] Main OR Preoperative Recordo n 08-10-2022 Main OR Preoperative Record Holding Area Document Type FT Summary Primary Physician: Jr Akbar MD Finalized Date/Time: 08/10/22 10:12:33 Pt. Name: TERRY OLGUIN /Sex: 1950 Male Med Rec #: [id number] Physician: Jr Akbar MD Financial #: [id number] Pt. Type: O Room/Bed: / Admit/Disch: 08/10/22 [...] By: Liseth Diaz RN 08/10/22 10:12 Normal [facility] Monitor Recordon 08-10-2022 Monitor Record [id number]# 1.00CD:127 Normal [facility] Monitor Record [id number]# 1.00CD:127 Normal [facility] Operative Reporton Operative Report Patient: TERRY OLGUIN [...] forearm-local on 06/07/2015 at 65 Years. Colonoscopy ([id number]) on 12/11/2011 at 61 Years. Comments: 07/20/2022 13:11 Marlene Mo MA, Dr. at [facility]. When called for records [facility]'s MR states it's out of retention range-LML Excision of lesion of joint of shoulder (292385009) in the month of 09/2008 at 58 Years. Comments: 03/28/2019 8:57 Avani Kincaid right shoulder and posterior scalp Excision of hand lesion (944355520) in the month of 07/2004 at 54 Years. Comments: 03/28/2019 8:57 Avani Kincaid right Hernia repair ([id number]).. Past Medical History Resolved Lumbosacral radiculitis (00954006): Resolved. Backache (358246150): Resolved. 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 Tachycardia (4926107): Resolved. Acute respiratory failure with hypoxia (326252894): Resolved. Pneumonia due to COVID-19 virus (5056731234): Resolved. Hyponatremia (559039538): Resolved. 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 Pneumonia (913144779): Resolved.. Family History History is unknown.. Procedure History excision lipoma left forearm-local on 06/07/2015 at 65 Years. Colonoscopy ([id number]) on 12/11/2011 at 61 Years. Comments: 07/20/2022 13:11 Marlene Mo MA, Dr. at [facility]. When called for records [facility]'s MR states it's out of retention range-LML Excision of lesion of joint of shoulder (418376435) in the month of 09/2008 at 58 Years. Comments: 03/28/2019 8:57 Avani Kincaid right shoulder and posterior scalp Excision of hand lesion (802406619) in the month of 07/2004 at 54 Years. Comments: 03/28/2019 8:57 Avani Kincaid right Hernia repair ([id number]).. Colorectal neoplasm risk assessment Average risk. Informed [...] BID for itching, 54 gram, Refill(s) 0, [facility]/pharmacy #[id number], 180, cm, 01/01/22 [...] bedtime), # 90 tab(s), Refills(s) 3, Pharmacy: [facility]/pharmacy #[id number], 180, cm, 11/03/21 [...] biopsy res (more content not included)... Normal [facility] Comment on above: Result Comment: Elec tronically Signed By: Raffy COOMBS, Jr Hendricks\.br\Date and Time Signed: 08/10/22 11:49 EST Outpatient Surgery Discharge Instructionon 08-10-2022 Outpatient Surgery Discharge Instruction [place] [id number] Patient Discharge Instructions PERSON INFORMATION Name: TERRY [...] will call with results Type Location Start [facility] [place] [facility] 12/23/2022 8:40 AM 12/23/2022 9:00 AM Confirmed Pharmacy Information: [facility] [place] You may receive a survey from Saeed Gomez asking you to rate your care experience. Your feedback is important and will help us understand what we do well and how we can improve the quality of care we provide to you, your loved ones and our community. It?s an honor to serve you. Thank you for choosing [facility] HERE ARE THE MEDICATION CHANGES THAT [...] slower pace than normal. ? Eat soft, zhrg-bf-llknse foods. ? Take kdtp-jxi-rqnvntn or prescription medicines only as told by [...] a fe (more content not included)... Normal [facility] Patient Education - [employer] 1 10-11-2021 Patient [...] slower pace than normal. ? Eat soft, xcwn-hm-kcxfse foods. ? Take ktgt-dzf-cvbfhzd or prescription medicines only as told by [...] 03/23/2005 Document Revised: 06/01/2018 Document Reviewed: 10/20/2016 Segment Patient Education ? 2019 [employer]. [facility] Progress Note-Physicianon Progress Note-Physician Patient: [...] BID for itching, 54 gram, Refill(s) 0, [facility]/pharmacy #[id number], 180, cm, 01/01/22 9:11:00 EDT, Height/Length Dosing, 97.4, kg, 01/01/22 9:11:00 EDT, Weight Dosing doxycycline hyclate 100 mg Cap: 100 mg = 1 cap(s), Oral, Daily, with fluids, # 30 cap(s), Refills(s) 5, Pharmacy: [facility]/pharmacy #[id number], 180, cm, 01/01/22 9:11:00 EDT, Height/Length Dosing, 97.4, kg, 01/01/22 9:11:00 EDT, Weight Dosing metronidazole topical 0.75% gel: 1 emily, Topical, BID, 45 gram, Refill(s) 1, apply a thin film to affected area after washing, morning and night, [facility]/pharmacy #[id number], 180, cm, 06/24/22 9:05:00 EDT, Height/Length Dosing, 98.3, kg, 06/24/22 9:05:00 EDT, Weight Dosing simvastatin 40 mg Tab: 40 mg = 1 tab(s), Oral, Once a day (at bedtime), # 90 tab(s), Refills(s) 3, Pharmacy: [facility]/pharmacy #[id number], 180, cm, 11/03/21 [...] of lower limb, acute / SNOMED CT 2348985701 / Confirmed BMI 30.0-30.9,adult / SNOMED CT 037218407 / Confirmed Hemorrhoids / SNOMED CT 901485826 / Confirmed History of COVID-19 / SNOMED CT 8658172530 / Confirmed Hyperlipidemia / SNOMED CT 74868438 / Confirmed Hypertension / SNOMED CT 5321418897 / Confirmed Non-smoker / SNOMED CT 93846009 / Confirmed Obesity / SNOMED CT 9570115630 / Confirmed Screening for prostate cancer / SNOMED CT 192791809 / Confirmed Screening for colon cancer / SNOMED CT 501723482 / Confirmed Seasonal allergies / SNOMED CT 4977897174 / Confirmed Vitamin D deficiency / SNOMED CT 78339101 / Confirmed Resolved: Acute respiratory failure with hypoxia / SNOMED CT 683640122 Resolved: At risk for falls / SNOMED CT 767909409 Problem added when Risk for Falls Careplan was initiated. Resolved due to patient discharge. Resolved: Backache / SNOMED CT 226970343 Resolved: Oxygen dependent / SNOMED CT 2796711029 Resolved: Displacement of intervertebral disc without myelopathy / SNOMED CT 748616870 Resolved: Hyponatremia / SNOMED CT 044185306 Resolved: Lumbosacral radiculitis / SNOMED CT 26953408 Resolved: Pneumonia / SNOMED CT 690656468 Resolved: Pneumonia due to COVID-19 virus / SNOMED CT 5444380290 Resolved: Tachycardia / SNOMED CT 3209092 Canceled: Acute hypoxemic respiratory failure due to COVID-19 / SNOMED CT 0730572503 Canceled: Patient had no falls in past year / SNOMED CT 0911964629 Canceled: On apixaban therapy / SNOMED CT 282440342 Canceled: Overweight with body mass index (BMI) of 29 to 29.9 in adult / SNOMED CT 6531966266, Active Problems (12) BMI 30.0-30.9,adult DVT of lower limb, acute Hemorrhoids History of COVID-19 Hyperlipidemia Hypertension Non-smoker Obesity Screening for colon cancer Screening for prostate cancer Seasonal allergies Vitamin D deficiency Histories Past Medical History: Resolved Lumbosacral radiculitis (80508532): Resolved. Backache (799123199): Resolved. Displacement of intervertebral disc without myelopathy (695410130): Resolved. Tachycardia (0631765): Resolved. Acute respiratory failure with hypoxia (587319331): Resolved. Pneumonia due to COVID-19 virus (3165097303): Resolved. Hyponatremia (623129080): Resolved. Oxygen dependent (9220294742): Resolved. Pneumonia (844870935): Resolved. Family History: History is unknown. Procedure history: excision lipoma left forearm-local on 06/07/2015 at 65 Years. Colonoscopy ([id number]) (more content not included)... Normal [facility] Comment on above: Result Comment: Elec [...] PACU when criteria met. Condition good. 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 male here for screening colonoscopy Last colonoscopy Dr. Livingston in [place] approx 10 years prior Denies family history [...] a record of this procedure [facility] at [facility]. The patient does take Eliquis [...] Lees e[employer]ience to record this visit. POOJA multi media specialist and provider reviewed before signing. POOJA: [...] inactiv (more content not included)... Normal [place] [facility] Comment on above: Result Comment: Elec [...] 0?1 drink (more content not included)... Normal [facility] Ambulatory Visit Summaryon 1 08-24-2021 Ambulatory Visit [...] after washing, morning and night Pickup at [facility]/pharmacy #[id number] Unchanged phenylephrine topical (Preparation H Cooling Gel [...] physician if questions or concerns Pharmacy Information [facility]/pharmacy #[id number]: [address] [place], [place] [phone] Medications and Immunizations Administered Not Given influenza [...] Pneumonia due to COVID-19 virus Tachycardia Normal [facility] Ambulatory Visit Summary TERYR OLGUIN :1950 Visit Date:06/24/2022 Ambulatory Visit Instructions [...] after washing, morning and night Pickup at [facility]/pharmacy #[id number] Unchanged phenylephrine topical [...] physician if questions or concerns Pharmacy Information [facility]/pharmacy #[id number]: [address] [place], [place] [phone] Medications and Immunizations Administered Not Given influenza [...] due to COVID-19 virus Tachycardia Normal [place] [facility] Family Medicine Office/Clini c Noteon 06-24-2022 Family [...] Denies constipation. Colonoscopy: 8 years ago at [facility] [place]. PSA: 0.11 08/21/21. Review of Systems PHQ [...] Neurologic: Cranial nerves II-XII grossly intact. Skin: [place], warm and dry. No rashes, ulcerations, or [...] medical support in addressing this problem. Visit [employer] for useful information to help make better choices when eating. Your BMI and weight management will be followed (more content not included)... Normal [facility] Comment on above: Result Comment: Elec [...] rate/Area] mL/min/1.73 m2 Normal >=59mL/min/1 .73 m2 [facility] [place] [place] Chem S Globulin (S) [Mass/Vol] 2.6 g/dL [...] 208.0 E9/L Normal 150.0 - 500.0 E9/L [facility] [place] [place] HemeAutoSS RBC (Bld) [#/Vol] 5.2 E12/L Normal 4.3 - 5.9 E12/L [facility] [place] [place] HemeAutoSS WBC corrected for nucl RBC Auto (Bld) [#/Vol] 4.2 E9/L Normal 4.0 - 11.0 E9/L [facility] [place] [place] HemeAutoSS Vital Signs Date Time Vital Sign Value Performing Clinician Germaniai parthay 04-20-2023 08:50-0400 Blood Pressure Location Jr CAMPOS [facility] 04-20-2023 08:50-0400 Body temperature 97.88 [degF] Jr CAMPOS [facility] 04-20-2023 08:50-0400 Diastolic blood pressure 72 mm[Hg] Jr CAMPOS [facility] 04-20-2023 08:50-0400 Heart rate 83 /min Jr CAMPOS [facility] 04-20-2023 08:50-0400 SaO2% (BldA) [Mass fraction] 94 % Jr CAMPOS [facility] 04-20-2023 08:50-0400 Systolic blood pressure 134 mm[Hg] Jr CAMPOS [facility] 03-17-2023 12:00-0400 Diastolic blood pressure 90 mm[Hg] Jr CAMPOS [facility] 03-17-2023 12:00-0400 Mean blood pressure 107 mm[Hg] Jr CAMPOS [facility] 03-17-2023 12:00-0400 Systolic blood pressure 142 mm[Hg] Jr CAMPOS [facility] 03-17-2023 11:42-0400 Blood Pressure Location Jr CAMPOS [facility] 03-17-2023 11:42-0400 Body temperature 98.6 [degF] Jr CAMPOS [facility] 03-17-2023 11:42-0400 Diastolic blood pressure 98 mm[Hg] Jr CAMPOS [facility] 03-17-2023 11:42-0400 Heart rate 72 /min Jr CAMPOS [facility] 03-17-2023 11:42-0400 SaO2% (BldA) [Mass fraction] 96 % Jr CAMPOS [facility] 03-17-2023 11:42-0400 Systolic blood pressure 164 mm[Hg] Jr CAMPOS [facility] 08-10-2022 11:25-0500 Blood Pressure Location Jr Akbar [facility] 08-10-2022 11:25-0500 Diastolic blood pressure 100 mm[Hg] Jr Akbar [facility] 08-10-2022 11:25-0500 Heart rate 73 /min Jr Akbar [facility] 08-10-2022 11:25-0500 Respiratory rate 17 /min Jr Akbar [facility] 08-10-2022 11:25-0500 SaO2% (BldA) [Mass fraction] 95 % Jr Akbar [facility] 08-10-2022 11:25-0500 Systolic blood pressure 159 mm[Hg] Jr Akbar [facility] 08-10-2022 11:20-0500 Blood Pressure Location Jr Akbar [facility] 08-10-2022 11:20-0500 Diastolic blood pressure 96 mm[Hg] Jr Mourany [facility] 08-10-2022 11:20-0500 Heart rate 78 /min Jr Mourany [facility] 08-10-2022 11:20-0500 Respiratory rate 16 /min Jr Mourany [facility] 08-10-2022 11:20-0500 SaO2% (BldA) [Mass fraction] 95 % Jr Mourany [facility] 08-10-2022 11:20-0500 Systolic blood pressure 147 mm[Hg] Jr Mourany [facility] 08-10-2022 11:15-0500 Blood Pressure Location Jr Mourany [facility] 08-10-2022 11:15-0500 Diastolic blood pressure 92 mm[Hg] Jr Mourany [facility] 08-10-2022 11:15-0500 Heart rate 84 /min Jr Mourany [facility] 08-10-2022 11:15-0500 Respiratory rate 16 /min Jr Mourany [facility] 08-10-2022 11:15-0500 SaO2% (BldA) [Mass fraction] 95 % Jr Mourany [facility] 08-10-2022 11:15-0500 Systolic blood pressure 139 mm[Hg] Jr Mourany [facility] 08-10-2022 11:00-0500 Body temperature 98.78 [degF] Jr Mourany [facility] 08-10-2022 10:19-0500 Body temperature 98.6 [degF] Jr Mourany [facility] 07-20-2022 13:03-0500 Diastolic blood pressure 81 mm[Hg] Jr Salcedourany [facility] [place] 07-20-2022 13:03-0500 Heart rate 85 /min Jr Parksy [facility] [place] 07-20-2022 13:03-0500 SaO2% (BldA) [Mass fraction] 96 % Jr Parksy [facility] 07-20-2022 13:03-0500 Systolic blood pressure 135 mm[Hg] Jr Salcedoana cristinay [facility] 06-24-2022 08:59-0400 Blood Pressure Location Nana Marie Liu [facility] 06-24-2022 08:59-0400 Body temperature 98.06 [degF] Anna Marie Liu [facility] 06-24-2022 08:59-0400 Diastolic blood pressure 72 mm[Hg] Anna Marie Wernerell [facility] 06-24-2022 08:59-0400 Heart rate 70 /min Anna Marie Wernerell [facility] 06-24-2022 08:59-0400 SaO2% (BldA) [Mass fraction] 97 % Anna Marie Wernerell [facility] 06-24-2022 08:59-0400 Systolic blood pressure 140 mm[Hg] Anna Marie Liu [facility] 01-01-2022 09:04-0400 Blood Pressure Location Anna Marie Wernerell [facility] 01-01-2022 09:04-0400 Body temperature 97.16 [degF] Anna Marie Liu [facility] 01-01-2022 09:04-0400 Diastolic blood pressure 82 mm[Hg] Anna Marie Wernerell [facility] 01-01-2022 09:04-0400 Heart rate 82 /min Anna Mariechepe Wernerell [facility] 01-01-2022 09:04-0400 SaO2% (BldA) [Mass fraction] 97 % Anna Marie Liu [facility] 01-01-2022 09:04-0400 Systolic blood pressure 140 mm[Hg] Anna Marie Liu [facility] Encounters Encounter Date Encounter Type Care Provider Facility Start: 07-29-2023 End: 07-29-2023 ambulatory SIMRAN EPSTEIN Not Available Start: 04-21-2023 End: 04-22-2023 ambulatory Jr CAMPOS Facility:[place] Start: 04-21-2023 End: 04-21-2023 Patient encounter procedure Jr CAMPOS [facility] Start: 04-20-2023 End: 04-21-2023 ambulatory Jr CAMPOS Facility:[facility] Start: 04-20-2023 End: 04-20-2023 Patient encounter procedure rJ CAMPOS [facility] Start: 04-14-2023 End: 04-15-2023 ambulatory Jr CAPMOS Facility:[facility] [place] [place] Start: 04-14-2023 End: 04-14-2023 Patient encounter procedure Jr Barros MONI [facility] Start: 03-17-2023 End: 03-18-2023 ambulatory Jr CAMPOS Facility:[facility] Start: 03-17-2023 End: 03-17-2023 Patient encounter procedure Jr Barros CAMPOS [facility] Start: 02-03-2023 End: 02-04-2023 ambulatory Jr Barros CAMPOS Facility:[facility] [place] [place] Start: 02-02-2023 End: 02-03-2023 ambulatory Jr CAMPOS Facility:[facility] [place] [place] Start: 02-02-2023 End: 02-02-2023 Patient encounter procedure Jr Barros MONI [facility] Start: 02-02-2023 ambulatory Facility:[id number] Start: 01-13-2023 End: 01-14-2023 ambulatory Jr CAMPOS Facility:[facility] [place] Start: 01-08-2023 End: 01-09-2023 ambulatory Jr CAMPOS Facility:[facility] [place] [place] Start: 12-23-2022 ambulatory 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 Anna Marie Liu Fa cility:[facility] [place] [facility] Start: 08-10-2022 End: 08-11-2022 ambulatory Jr Akbar Facility:[facility] [place] [place] Start: 08-10-2022 End: 08-10-2022 Patient encounter procedure Jr Akbar [facility] Start: 07-20-2022 End: 07-21-2022 ambulatory Jr Akbar Facility:[facility] Start: 07-20-2022 End: 07-20-2022 Patient encounter procedure Jr Akbar [facility] [place] Start: 06-24-2022 End: 06-25-2022 ambulatory 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 Anna Marie Liu Facility:[place] Start: 06-24-2022 End: 06-24-2022 Patient encounter procedure Anna Marie Liu [facility] Start: 01-01-2022 End: 01-01-2022 Patient encounter procedure Anna Marie Liu [facility] Start: 12-25-2021 End: 12-25-2021 Patient encounter procedure Anna Marie Liu [facility] Start: 12-01-2021 End: 12-01-2021 Patient encounter procedure Maurizio JOY [facility] Procedures Date Procedure Procedure Detail Performing Clinician Start: 06-07-2015 excision lipoma left forearm-local Maurizio JOY Start: 12-11-2011 Colonoscopy Jr Ellis ria Comment on above: Dr. Livingston at [facility]. When called for records [facility]'s MR states it's out of retention range-LML [...] PF, 30 mcg/0.3 mL dose Maurizio JOY [facility] 06-30-2017 influenza virus vaccine, unspecified formulation Anna Marie Liu [facility] 06-25-2016 pneumococcal polysaccharide vaccine, 23 valent Anna Marie Liu [facility] 06-16-2012 tetanus toxoid, redu peggy diphtheria toxoid, and acellular pertussis vaccine, adsorbed Anna Marie Liu [facility] 06-16-2012 zoster vaccine, live Anna Marie Liu [facility] NEGATED: Highlighted row has not occurred!06-24-2022 influenza virus vaccine, unspecified formulation Anna Marie Liu [facility] NEGATED: Highlighted row has not occurred!08-28-2021 influenza virus vaccine, unspecified formulation Maurizio BENITA [facility] NEGATED: Highlighted row has not occurred!08-28-2021 SARS-CoV-2 (COVID-19) Ad26 vaccine, recombinant Maurizio LARSONMIGUEL ÁNGEL [facility] Payers Date Payer Category Payer Private Health Insurance [id number] 2023 Private Health Insurance 2023 Unknown 2022 Private Health Insurance [id number] 2022 Unknown [id number] 2021 Unknown [id number] 1950 Unknown [id number] 2.16.8 [id number] 1950 Unknown [id number] 2.16.8 [id number] 1950 Unknown [id number] 2.16.8 40.1.890006.3.579.2.727 1950 Unknown [id number] 2.16.8 40.1.625706.3.579.2.727 1950 Unknown [id number] 2.16.8 40.1.012148.3.579.2.727 1950 Unknown [id number] 2.16.8 40.1.847516.3.579.2.727 1950 Unknown [id number] 2.16.8 40.1.214204.3.579.2.727 1950 Unknown [id number] 2.16.8 40.1.073144.3.579.2.727 1950 Unknown [id number] 2.16.8 40.1.510021.3.579.2.727 1950 Unknown [id number] 2.16.8 40.1.347208.3.579.2.727 1950 Unknown [id number] 2.16.8 40.1.327359.3.579.2.727 1950 Unknown [id number] 2.16.8 40.1.801232.3.579.2.727 1950 Unknown [id number] 2.16.8 40.1.235395.3.579.2.727 1950 Unknown [id number] 2.16. [id number] 1950 Unknown [id number] 2.16.840 .[id number] Social History Date Type Detail Facility Start: 10-02-2021 End: 04-20-2023 Tobacco smoking status Never smoked tobacco (finding) [facility] Tobacco smoking status Never Jennifer [facility] Sex Assigned At Male [facility] Functional Status Date Assessment Result Facility 04-20-2023 Functional Status N/A [facility] 03-17-2023 Functional Status N/A [facility] 08-10-2022 Functional Status N/A [facility] 06-24-2022 Functional Status N/A [facility] Clinical Notes 01-01-2022 to 04-20-2023 Note Date & Type Note Facility 04-20-2023 Hospital Discharg e instructions Patient Education 04/20/2023 09:09:21 Hypertension, Adult, Sqxx-yh-Ntjl Hypertension, Adult Hypertension is another name for [...] doctor. Keep all follow-up visits. Medicines Take mrab-ehh-nytihvz and prescription medicines only as told by [...] provider. Document Revised: 05/28/2022 Document Reviewed: 05/28/2022 Segment Patient Education 2022 [employer]. Follow Up Care 03/17/2023 12:20:48 With:MONI COOMBS, Jr Barros, MED Address: [address] [place] [address] [place] [address]- When:Within 6 Month(s) [facility] 03-17-2023 Hospital Discharg e instructions Patient Education 03/17/2023 12:10:27 Hypertension, Adult, Dnyz-ij-Scmw Hypertension, Adult Hypertension is another name for [...] doctor. Keep all follow-up visits. Medicines Take nior-cti-apslfhz and prescription medicines only as told by [...] provider. Document Revised: 05/28/2022 Document Reviewed: 05/28/2022 Segment Patient Education 2022 [employer]. Follow Up Care 01/13/2023 09:20:10 With:Jr CAMPOS MD, MED Address: [facility] [address], [place] [address]- When:Within 1 Month(s) [facility] 02-04-2023 Note Echocardiology Procedure Exam Date/Time Accession # Ordering Echo Transthoracic 02/02/2023 14:38 EDT [id number] Jr CAMPOS MD Complete CPT code 06150 [id number] Reason for Exam (Echo Transthoracic Complete) [id number];Dyspnea Report [facility] [address] [place] [address] Adult Echocardiogram Report Name: TERRY OLGUIN Study Date: 02/02/2023 01:10 PM BP: 139/74 mmHg Patient Location: [facility] HR: 78 : 1950 Gender: Male Height: 71 in Age: 72 yrs Ethnicity: T Weight: 214 lb Reason For Study: Dyspnea BSA: 2.2 m2 History: No cardiac history Ordering Physician: Jr CAMPOS Referring Physician: Jr CAMPOS Performed By: Fatemeh Gutierres, [facility] Interpretation Summary Normal LV and RV. Ejection [...] Signed by: Андрей Sheehan MD Transcribed by: [facility] Technologist: JULES [facility] 08-12-2022 Note [id number]:127 [facility] 08-10-2022 Evaluation + Plan note Extrac serena from: Title:SAILAJA POSTOP Author:Amrik Gonsalves DO Date: 08/10/22 Plan Transfer/ Discharge: Patient can be discharged from PACU when criteria met. Condition good. Extracted from: Title:SAILAJA PREOP ENDO NOTE Author:Sariah Gonsalves DO Date:08/10/22 Plan [place] [employer] (ASA) physical status classification: [...] 08:40:00 AM Scheduled Provider:Anna Marie Liu CNP Location:[facility] Appointment Type:FM Open Future Scheduled Tests Laboratory* Vitamin D 25 Hydroxy 01/01/22 * CBC w/ Auto Diff 06/24/22 * Comprehensive Metabolic Panel 01/01/22 * Comprehensive Metabolic Panel 06/24/22 * Lipid Panel 01/01/22 * Lipid Panel 06/24/22 [facility]12-19-2022 Hospital Discharge instructions Patient Education 08/10/2022 [...] 05/05/2005 Document Revised: 11/24/2018 Document Reviewed: 11/24/2018 Segment Patient Education 2020 [employer]. 08/10/2022 11:13:03 Diverticulosis Diverticulosis Diverticulosis is a [...] overweight. Not getting enough exercise. Smoking. Taking ezdu-dny-ghtzlpc pain medicines, like aspirin and ibuprofen. Having [...] health care provider or your diet and physician relations specialist (dietitian). ?Take a fiber supplement or probiotic, if your health care provider approves. Take fpws-pku-nuruxsg and prescription medicines only as told by [...] 05/06/2005 Document Revised: 07/22/2018 Document Reviewed: 06/28/2017 Segment Patient Education 2020 [employer]. 08/10/2022 11:02:46 Colonoscopy, Adult, Care After Colonoscopy, [...] a slower pace than normal. ?Eat soft, fthl-ei-ndgmrt foods. Take mtqw-nyx-gxweyzt or prescription medicines only as told by [...] 03/23/2005 Document Revised: 06/01/2018 Document Reviewed: 10/20/2016 Segment Patient Education 2019 [employer]. Follow Up Care 07/20/2022 13:22:22 With:Jr Akbar Address:Unknown When: Unknown Comments:will call with results [facility]11-28-2022 Hospital Discharge instructions Patient Education 07/20/2022 [...] food choices, such as grocery stores and [employer] markets. What are the signs or symptoms? [...] and how much exercise you get. Take bfij-dzi-onvnuqf and prescription medicines only as told by [...] 09/16/2005 Document Revised: 04/13/2019 Document Reviewed: 04/13/2019 Segment Patient Education 2019 [employer]. [facility] [place] 05-12-2022 Hospital Discharge instructions Patient Education 01/01/2022 [...] 3 times a day. General instructions Take iyam-hsq-mvzrbob and prescription medicines only as told by [...] 08/06/2001 Document Revised: 01/05/2020 Document Reviewed: 12/29/2018 Segment Patient Education 2020 [employer]. 01/01/2022 09:41:43 Dyslipidemia Dyslipidemia Dyslipidemia is an [...] quitting, ask your health care provider. Take nktm-qkz-fbagnpi and prescription medicines only as told by [...] 08/14/2014 Document Revised: 04/03/2019 Document Reviewed: 03/10/2019 Segment Patient Education 2020 [employer]. 01/01/2022 09:41:41 DASH Eating Plan DASH Eating [...] your health care provider or diet and physician relations specialist (dietitian) to adjust your eating plan [...] each week. ?Heart-healthy fats. Healthy fats called [place]-3 fatty acids are found in foods such [...] Dairy Whole or 2% milk, cream, and rdiv-wnb-ggum. Whole or full-fat cream cheese. Whole-fat or [...] more information: National Heart, Lung, and Blood [place]: www.nhlbi.nih.gov [place] [employer]: www.heart.org Summary The DASH eating [...] your health care provider or diet and physician relations specialist (dietitian) to adjust your eating plan to your individual calorie needs. This information is not intended to replace advice given to you by your health care provider. Make sure you discuss any questions you have with your health care provider. Document Released: 07/28/2012 Document Revised: 07/22/2018 Document Reviewed: 08/02/2017 Segment Patient Education 2020 [employer]. 01/01/2022 09:41:39 Vitamin D Deficiency Vitamin D [...] 10/31/2012 Document Revised: 04/17/2019 Document Reviewed: 04/17/2019 Segment Patient Education 2020 [employer] Follow Up Care 10/02/2021 11:52:41 With:Anna Marie Liu CNP Address: When:6 months [facility] Evaluation + Plan note Future Appointments Appointment Date:01/01/2022 09:00:00 AM Scheduled Provider:Anna Marie Liu CNP Location:[facility] Appointment Type:FM Open Future Scheduled Tests Laboratory* PSA Screen, Total 10/02/21 * Vitamin D 25 Hydroxy 10/02/21 * CBC w/ Auto Diff 10/02/21 * Comprehensive Metabolic Panel 10/02/21 * Lipid Panel 10/02/21 [facility] Evaluation + Plan note Future Appointments Appointment Date:01/01/2022 09:00:00 AM Scheduled Provider:Anna Marie Liu CNP Location:[facility] Future App[facility]ments Appointment Date:06/24/2022 09:00:00 AM Scheduled Provider:Anna Marie Liu CNP Location:[facility] Appointment Type:FM Open Future Scheduled Tests Laboratory* Vitamin D 25 Hydroxy 01/01/22 * Comprehensive Metabolic Panel 01/01/22 * Lipid Panel 01/01/22 [facility] evaluation + Plan note Future Appointments Appointment Date:12/23/2022 08:40:00 AM Scheduled Provider:Anna Marie Liu CNP Location:[facility] Appointment Type:FM Open Future Scheduled Tests Laboratory* Vitamin D 25 Hydroxy 01/01/22 * CBC w/ Auto Diff 06/24/22 * Comprehensive Metabolic Panel 01/01/22 * Comprehensive Metabolic Panel 06/24/22 * Lipid Panel 01/01/22 * Lipid Panel 06/24/22 [facility] evaluation + Plan note Future Appointments Appointment Date:08/10/2022 11:00:00 AM Scheduled Provider: Location:[facility] Appointment Type:Surgery FT Appointment Date:12/23/2022 08:40:00 AM Scheduled Provider:Anna Marie Liu CNP Location:[facility] Appointment Type:FM Open Future Scheduled Tests Laboratory* Vitamin D 25 Hydroxy 01/01/22 * CBC w/ Auto Diff 06/24/22 * Comprehensive Metabolic Panel 01/01/22 * Comprehensive Metabolic Panel 06/24/22 * Lipid Panel 01/01/22 * Lipid Panel 06/24/22 [facility] [place] Evaluation + Plan note Future Appointments Appointment Date:02/03/2023 08:30:00 AM Scheduled Provider: Location:.CARDIO Appointment Type:PUL Pulmonary Function Test () Appointment Date:02/03/2023 09:30:00 AM Scheduled Provider: Location:.XRAY Appointment Type:XR Chest () Appointment Date:03/17/2023 11:40:00 AM Scheduled Provider:Jr CAMPOS MD Location:[facility] Appointment Type:FM Open Future Scheduled Tests Laboratory* CBC w/ Auto Diff 06/24/22 * Comprehensive Metabolic Panel 06/24/22 * Lipid [facility]24[facility] App[facility]ments Appointment Date:04/20/2023 08:40:00 AM Scheduled Provider:Jr CAMPOS MD Location:[facility] Appointment Type:FM Open Future Scheduled Tests Laboratory* Basic Metabolic Panel 03/17/23 * CBC w/ Auto Diff 06/24/22 * Comprehensive Metabolic Panel 06/24/22 * Lipid Panel 06/24/22 [facility] Evaluation + Plan note Future Appointments Appointment Date:04/20/2023 08:40:00 AM Scheduled Provider:Jr CAMPOS MD Location:[facility] Appointment Type:FM Open Future Scheduled Tests Laboratory* CBC w/ Auto Diff 06/24/22 * Comprehensive Metabolic Panel 06/24/22 * Lipid Panel 06/24/22 [facility] Future App[facility]ments Appointment Date:10/18/2023 09:00:00 AM Scheduled Provider:Jr CAMPOS MD Location:[facility] Appointment Type:FM Open Future Scheduled Tests Laboratory* HgbA1c 04/20/23 * PSA Screen, Total 04/20/23 * Vitamin D 25 Hydroxy 04/20/23 * CBC w/ Auto Diff 04/20/23 * CBC w/ Auto Diff 06/24/22 * Comprehensive Metabolic Panel 04/20/23 * Comprehensive Metabolic Panel 06/24/22 * Lipid Panel 04/20/23 * Lipid Panel 06/24/22 [facility] Hospital course Narrative No data available for this section [facility] Hospital Discharge instructions No data available for this section [facility] Progress note No data available for this section [facility] Summary Purpose Family History No Family History Records FoundNo Family History Records FoundNo Family History Records Found Advance Directives No Advanced Directives Records FoundNo Advanced Directives Records FoundNo Advanced Directives Records Found Additional Source Comments Patient Care team informatio n (unrecognized section and content) Personnel Name: Anna Marie Liu CNP Address: Address: [address] [place] [address] [place] Name: Elpidio Mullins Personnel Name: Anna Marie Liu CNP Address: Address: [address] [place] [address] [place] Name: Elpidio Mullins Personnel Name: Anna Marie Liu CNP Address: Address: [address] [place] [address] [place] Name: Elpidio Mullins Personnel Name: Jr CAMPOS MD Address: Address: [place] [address]- Name: Elpdiio Mullins Personnel Name: Jr CAMPOS MD Address: Address: [place] [address] [address] [place] [address]- Name: Elpidio Mullins Personnel Name: Jr CAMPOS MD Address: Address: [place] [address] [address] [place], [place] [address] Name: Elpidio Mullins Personnel Name: Jr CAMPOS MD Address: Address: [facility] [address], [address] [place], [address] Name: Elpidio Mullins Personnel Name: Jr CAMPOS MD Address: Address: [facility] [address], [address] [place], [address] Name: Elpidio Mullins (unrecognized sect ion and content) No Status Records FoundNo Status Records FoundNo Status Records Found INFORMATION SOURCE (unrecogn ized section and content) DATE CREATED AUTHOR 05/02/2023 [facility] DATE CREATED AUTHOR AUTHOR'S ORGANIZ ATION 06/05/2023 [facility] DATE CREATED AUTHOR AUTHOR'S ORGANIZ ATION 07/31/2023 [facility] PSYCHIATRIC FOR RECORDS PERTAINING TO PATIENTS WHO ARE [...] BE BASED ON THE PRIMARY CLINICAL RECORDS. [facility] [employer] provides no warranty or guarantee of the accuracy or completeness of information in this document.
[2023-09-23 06:28] VITALS: BP 122/68; PULSE 75; RESP 16; TEMP 36.2; O2SAT 98
[2023-09-23] MEDS: DIAZEPAM 5 MG TABLET PO (06:33)
[2023-09-23] MEDS: TROPICAMIDE 1% OP SOL 300 DROP/15 ML BOTTLE OP ×4 (06:34→07:09)
[2023-09-23] MEDS: PHENYLEPHRINE HCL 2.5% OP SOL 40 DROP/2 ML BOTTLE OP ×4 (06:34→07:09)
[2023-09-23] MEDS: BESIFLOXACIN HCL 100 DROP DROPS.SUSP OP ×4 (06:35→07:09)
[2023-09-23 07:38] VITALS: BP 117/76; PULSE 68; RESP 18; O2SAT 95
[2023-09-23] MEDS: APRACLONIDINE HCL 100 DROP/5 ML BOTTLE OP (07:43)
[2023-09-23] MEDS: LIDOCAINE 2% JELLY 10 ML TOPICAL (07:44)
[2023-09-23] MEDS: HYALURONATE SODIUM 16 MG/ML SYRINGE OP (07:44)
[2023-09-23] MEDS: LIDOCAINE HCL 1% PF 20 MG/2 ML VIAL INJ (07:45)
[2023-09-23] MEDS: PHENYLEPHRINE/KETOROLAC 1-0.3% ML VIAL 4 ML IRR (07:45)
[2023-09-23] MEDS: PROPARACAINE HCL 0.5% 300 DROP/15 ML BOTTLE OP (07:46)
[2023-09-23] MEDS: BETADINE POVIDONE-IODINE 5% OP SOL 30 ML BOTTLE OP (07:46)
[2023-09-23] MEDS: PREDNISOLONE ACETATE OP 1% SUSP 100 DROPS/5 ML 1 DROP OP (07:46)
[2023-09-23] MEDS: CEFUROXIME SODIUM 750 MG, 0.9 % SODIUM CHLORIDE 16.3 ML OP (07:47)
[2023-09-23] MEDS: TETRACAINE HCL 0.5% OP SOL 80 DROP/4 ML BOTTLE OP (07:47)
[2023-09-23 07:56] VITALS: BP 131/79; PULSE 64; RESP 18; O2SAT 99
== END 2023-09-23 08:07 | disposition home or self-care (01) ==
LOC: SURGOUT 06:19
PROVIDERS: Visit Provider Ophthalmology
PROC: (CPT 66984; principal; 2023-09-23 07:30)
DX: H25.12 Age-related nuclear cataract, left eye (principal)
CPT/HCPCS: 66984; J0697; V2630